=== PATIENT | male | born 1940 | race Caucasian/White ===

== ENCOUNTER 2017-02-25 08:29 | Inpatient (IN) | payer OTHER, MEDICARE ==
[~2017-02-25] VITALS: Ht 172.7 cm; Wt 83.7 kg
[2017-02-25] VITALS (19 sets, daily range): BP systolic 74–135; BP diastolic 52–71; PULSE 112–141; RESP 12–29; TEMP 99.1–102.2; O2SAT 55–100
[~2017-02-25 08:29] MED LIST: BENA5TAB PO; BIOT50005 PO; CENTTAB8 PO; CIPR250T2 PO; METF1000 PO; PRAV20TA2 PO; PROS5TAB PO; TERA10CA3 PO; VITA100032 PO; VITA10004 PO
[2017-02-25] MEDS ORDERED: ETOMIDATE 20 MG/10 ML VIAL ONE (08:37)
[2017-02-25] MEDS ORDERED: ROCURONIUM INJ 50 MG/5 ML VIAL ONE (08:37)
[2017-02-25] MEDS ORDERED: SODIUM CHLOR 0.9% 1000 ML INJ 400 ML IV ONE (08:46)
[2017-02-25] MEDS ORDERED: AZITHROMYCIN INJ 500 MG in SODIUM CHLOR 0.9% 250 ML INJ 250 ML IV STA (08:46)
[2017-02-25] MEDS ORDERED: CEFEPIME INJ 2,000 MG in SODIUM CHLORIDE 0.9% INJ 100 ML IV STA (08:46)
[2017-02-25] MEDS ORDERED: SODIUM CHLOR 0.9% 1000 ML INJ 1,000 ML IV ONE ×5 (08:46→10:45)
[2017-02-25] MEDS ORDERED: MIDAZOLAM 100 MG/ML INJ 100 ML ONE (08:54)
--- NOTE | 2017-02-25 08:58 | PD ---
HPI Chief Complaint: Altered Mental Status Time Seen by Provider: 08:46 Travel History International Travel<30 days: No Contact w/Intl Traveler<30days: No Traveled to known affect area: No History of Present Illness HPI The patient is a 76-year-old male who presents to the emergency department via EMS for altered mental status. EMS states the patient apparently fell yesterday, striking the left aspect of his head, was seen by his primary physician. The patient then had decreasing mental status throughout the night, normal GCS of 15. EMS, GCS of 14 upon arrival. EMS states the patient was hypoxic when they arrived with an O2 saturation on room air of 72% and a blood sugar 318. Upon arrival the patient does not answer questions including his name, current location, year, or month. The patient has difficulty following simple commands and appears confused. The patient was also noted to be tachycardic with a heart rate in the 120s and respiratory rate in the 40s. 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 No further information is obtainable from the patient. PFSH Past Medical History Cancer: Yes (AML) Cardiovascular Problems: Yes High Cholesterol: Yes Chemotherapy: Yes (WEEKLY) Diabetes: Yes (Type 2) Diminished Hearing: No Endocrine: Yes Genitourinary: Yes (BPH) Hypertension: Yes Immune Disorder: No Musculoskeletal: No Neurologic: No Psychiatric: No Reproductive: No Respiratory: Yes Immunizations Current: No Thyroid Disease: No Tetanus Vaccination: Unknown ?: Not Past Surgical History Abdominal Surgery: No AICD: No Cardiac Surgery: No Ear Surgery: No Endocrine Surgery: No Eye Surgery: Yes (Ariela 2007) Genitourinary Surgery: No Gynecologic Surgery: Yes (turp) Joint Replacement: No Neurologic Surgery: No Oral Surgery: No Pacemaker: No Thoracic Surgery: No Other Surgery: Yes (TURP) Family History Family Hypercholesterolemia: Yes Social History Tobacco Use: No (unable to answer) Substance Use: No Allergies-Medications (Allergen,Severity, Reaction): Coded Allergies: No Known Allergies (Unverified , 11/03/16) Reported Meds & Prescriptions Reported Meds & Active Scripts Active Ciprofloxacin (Ciprofloxacin HCl) 250 Mg Tab 250 Mg PO BID Reported Vitamin D (Cholecalciferol) 1,000 Unit Cap 1,000 Units PO DAILY Biotin 5,000 Mcg Cap 5,000 Mcg PO Vitamin B12 Tr (Cyanocobalamin) 1,000 Mcg Tab 1,000 Mcg PO DAILY Centrum Adults (Multiple Vitamins W/ Minerals) 1 Tab 1 Tab PO DAILY Terazosin (Terazosin HCl) 10 Mg Cap 10 Mg PO HS Pravastatin 20 Mg Tab 20 Mg PO HS Proscar (Finasteride) 5 Mg Tab 5 Mg PO HS Do not crush. Metformin (Metformin HCl) 1,000 Mg Tab 1,000 Mg PO BIDPC With meals Benazepril (Benazepril HCl) 5 Mg Tab 5 Mg PO DAILY Review of Systems ROS Limitations: Clinical Condition, Altered Mental Status Except as stated in HPI: all other systems reviewed are Neg Neurologic: Positive: Change in Mentation (according to EMS) Physical Exam Narrative GENERAL: Awake, mostly nonverbal, confused 76-year-old male in respiratory distress with a respiratory rate in the 40s. SKIN: Focused skin assessment warm/dry. HEAD: Hematoma with superficial abrasion and ecchymosis over the left frontal temporal area. EYES: Pupils equal and round. Pupils are 2 mm bilateral. ENT: No nasal bleeding or discharge. Dry mucous membranes. NECK: Trachea midline. No JVD. CARDIOVASCULAR: Regular, tachycardic with a heart rate of 120. RESPIRATORY: Tachypnea with a respiratory rate of 46. Diminished breath sounds in the bases bilateral. GASTROINTESTINAL: Abdomen soft, abdominal breathing noted. Rectal exam: No gross blood. Guaiac positive. MUSCULOSKELETAL: Abrasion noted over the anterior aspect of the right knee. Back: Abrasion noted over the mid left thoracic region. NEUROLOGICAL: Awake, confused, somewhat lethargic. Does not answer to his name and does not answer questions regarding person, place, month, or year. Does move all 4 extremities spontaneously. PSYCHIATRIC: Appears confused. Data Data Last Documented VS Vital Signs Date Time Temp Pulse Resp B/P Pulse Ox O2 Delivery O2 Flow Rate FiO2 02/25/17 09:46 141 15 135/71 100 Ventilator 02/25/17 09:46 100 02/25/17 08:39 15 02/25/17 08:32 102.2 Orders Etomidate Inj (Amidate Inj) (02/25/17 08:37) Rocuronium Inj (Zemuron Inj) (02/25/17 08:37) Electrocardiogram (02/25/17 08:46) Complete Blood Count With Diff (02/25/17 08:46) Comprehensive Metabolic Panel (02/25/17 08:46) Prothrombin Time / Inr (Pt) (02/25/17 08:46) Act Partial Throm Time (Ptt) (02/25/17 08:46) Lactic Acid Sepsis Protocol (02/25/17 08:46) Magnesium (Mg) (02/25/17 08:46) Lipase (02/25/17 08:46) Ckmb (Isoenzyme) Profile (02/25/17 08:46) Troponin I (02/25/17 08:46) Urinalysis - C+S If Indicated (02/25/17 08:46) Influenzae A/B Antigen (02/25/17 08:46) Blood Culture (02/25/17 08:46) Chest, Single Ap (02/25/17 08:46) Blood Glucose (02/25/17 08:46) Ecg Monitoring (02/25/17 08:46) Iv Access Insert/Monitor (02/25/17 08:46) Oximetry (02/25/17 08:46) Oxygen Administration (02/25/17 08:46) Urinary Catheter Insert/Apply (02/25/17 08:46) Acetaminophen Supp (Tylenol Supp) (02/25/17 09:00) Ct Brain W/O Iv Contrast(Rout) (02/25/17 08:46) Cefepime Inj (Maxipime Inj) (02/25/17 08:46) Azithromycin Inj (Zithromax Inj) (02/25/17 08:46) Sodium Chlor 0.9% 1000 Ml Inj (Ns 1000 M (02/25/17 08:46) Sodium Chlor 0.9% 1000 Ml Inj (Ns 1000 M (02/25/17 08:46) Sodium Chlor 0.9% 1000 Ml Inj (Ns 1000 M (02/25/17 08:46) Neurological Rass Scale Q30MX2,Q2HX4,Q4H (02/25/17 08:46) ^ Infusion (02/25/17 08:46) Fentanyl Drip (Fentanyl Drip) (02/25/17 09:00) Midazolam Inj (Versed Inj) (02/25/17 09:00) Midazolam Inj (Versed Inj) (02/25/17 09:00) Neurological Rass Scale Q30MX2,Q2HX4,Q4H (02/25/17 08:46) Ammonia (02/25/17 08:46) Midazolam Inj (Versed Inj) (02/25/17 09:00) Ng Gastric Tube Insert/Monitor (02/25/17 08:46) Restraints Non-Violent CURTIS.Q3H (02/25/17 08:46) Midazolam Inj (Versed Inj) (02/25/17 08:54) I-Stat Creatinine (02/25/17 08:58) Fentanyl Drip (Fentanyl Drip) (02/25/17 09:07) Red Blood Cells (Rbc) (02/25/17 09:18) Blood Product Administration .UPON TRANSFUSION (02/25/17 09:18) Sodium Chlor 0.9% 250 Ml Inj (Ns 250 Ml (02/25/17 09:30) Diphenhydramine Inj (Benadryl Inj) (02/25/17 09:30) Acetaminophen (Tylenol) (02/25/17 09:30) I-Stat Profile (02/25/17 09:00) Type And Screen (02/25/17 09:10) Urine Culture (02/25/17 09:10) CKMB (02/25/17 09:00) CKMB% (02/25/17 09:00) Platelet Pheresis (02/25/17 09:53) Red Blood Cells (Rbc) (02/25/17 09:53) Consult Medical Oncology (02/25/17 ) Platelet Pheresis (02/25/17 10:07) Blood Product Administration .UPON TRANSFUSION (02/25/17 10:07) Consult Neurosurgery (02/25/17 ) Complete Blood Count With Diff (02/25/17 14:00) Labs Laboratory Tests Test 02/25/17 02/25/17 09:00 09:10 White Blood Count 26.1 TH/MM3 Red Blood Count 1.99 MIL/MM3 Hemoglobin 6.2 GM/DL Bedside Hemoglobin 6.8 G/DL Hematocrit 18.1 % Bedside Hematocrit 20.0 % Mean Corpuscular Volume 91.2 FL Mean Corpuscular Hemoglobin 31.0 PG Mean Corpuscular Hemoglobin 34.0 % Concent Red Cell Distribution Width 16.2 % Platelet Count 28 TH/MM3 Mean Platelet Volume 8.8 FL Neutrophils (%) (Auto) % Lymphocytes (%) (Auto) % Monocytes (%) (Auto) % Eosinophils (%) (Auto) % Basophils (%) (Auto) % Neutrophils # (Auto) TH/MM3 Lymphocytes # (Auto) TH/MM3 Monocytes # (Auto) TH/MM3 Eosinophils # (Auto) TH/MM3 Basophils # (Auto) TH/MM3 CBC Comment AUTO DIFF Prothrombin Time 15.8 SEC Prothromb Time International 1.4 RATIO Ratio Activated Partial 30.0 SEC Thromboplast Time Bedside Sodium 130 MMOL/L Sodium Level 129 MEQ/L Bedside Potassium 5.0 MMOL/L Potassium Level 4.7 MEQ/L Bedside Chloride 98 MMOL/L Chloride Level 98 MEQ/L Carbon Dioxide Level 15.4 MEQ/L Anion Gap 16 MEQ/L Bedside Blood Urea Nitrogen 72 MG/DL Blood Urea Nitrogen 64 MG/DL Creatinine 4.31 MG/DL Bedside Creatinine 3.9 MG/DL Estimat Glomerular Filtration 13 ML/MIN Rate Bedside Glucose 328 MG/DL Random Glucose 322 MG/DL Calcium Level 8.4 MG/DL Magnesium Level 1.8 MG/DL Total Bilirubin 1.0 MG/DL Aspartate Amino Transf 124 U/L (AST/SGOT) Alanine Aminotransferase 102 U/L (ALT/SGPT) Alkaline Phosphatase 65 U/L Total Creatine Kinase 193 U/L Creatine Kinase MB 3.6 NG/ML Troponin I 1.52 NG/ML Total Protein 6.7 GM/DL Albumin 3.3 GM/DL Lipase 50 U/L Urine Color DARK-YELLOW Urine Turbidity CLOUDY Urine pH 5.0 Urine Specific [place] 1.017 Urine Protein 100 mg/dL Urine Glucose (UA) 70 mg/dL Urine Ketones NEG mg/dL Urine Occult Blood LARGE Urine Nitrite NEG Urine Bilirubin NEG Urine Urobilinogen LESS THAN 2.0 MG/DL Urine Leukocyte Esterase NEG Urine RBC 34 /hpf Urine WBC 14 /hpf Urine Squamous Epithelial 3 /hpf Cells Urine Amorphous Sediment FEW Urine Bacteria FEW /hpf Urine Granular Casts 7 /lpf Microscopic Urinalysis Comment CATH-CULTURE IND Lactic Acid Level 5.3 mmol/L Ammonia 48 MCMOL/L Blood Type O POSITIVE Antibody Screen NEGATIVE Crossmatch Leukocyte-Reduced Red Blood Cells Blood Bank Comment MDM Medical Decision Making Medical Screen Exam Complete: Yes Emergency Medical Condition: Yes Medical Record Reviewed: Yes Interpretation(s) EKG reveals sinus tachycardia with a heart rate of 137 with occasional supraventricular premature complex. Nonspecific T wave changes. Differential Diagnosis Differential diagnosis includes intracranial hemorrhage, subdural hemorrhage, sepsis, pulmonary embolism, pneumonia, dehydration, DKA, sepsis, septic shock, pleural effusion, UTI. Narrative Course IV was established, labs are drawn and sent, and the patient was placed on cardiac telemetry monitoring and continuous pulse oximetry monitoring. The patient had tachypnea with a respiratory rate in the 40s, off of oxygen his O2 saturation felt a 52%, nonrebreather were, but into the 90s. The patient was confused and trying to get out of bed. Therefore, the patient was intubated using rapid sequence intubation as he was hypoxic, confused, and we need imaging studies such as CT the brain and CT pulmonary angiogram. Blood culture and lactic acid were sent to lab. The patient was administered cefepime and Zithromax. The patient was placed on fentanyl drip and Versed drip for sedation. The patient's i-STAT reveals a creatinine of 3.9, therefore, CT pulmonary angiogram was canceled. The patient's sodium was 1:30, potassium 5.0 , chloride 98, BUN 72, glucose 328, hemoglobin 6.8, hematocrit 20%. Therefore, time and screen was ordered and 2 units of packed red blood cells were ordered. The patient had an NG tube placed which reveals coffee ground emesis. Rectal exam was performed which was guaiac positive, no gross blood. Schafer catheter was placed, the patient had blood from around the Schafer catheter. The patient may have DIC and/or severe thrombocytopenia with his history of leukemia. CT the brain reveals a left subdural hemorrhage 9 mm in thickness with a mild gswt-mb-jwmcw shift of 2.6 mm. The patient's platelets were low at 28, therefore, one single unit donor platelets was ordered. I discussed the patient with Dr. Sanders who requests admission to the intensive surgical care physician with consultation to Dr. Sanders. A call was placed to the intensive surgical care physician. I reviewed the EMR, the patient's oncologist is Dr. Louis, therefore, call was placed to Dr. Louis. Critical Care Narrative Aggregate critical care time was 45 minutes. Time to perform other separately billable procedures was not included in the critical care time. My time did not include minutes spent treating any other patients simultaneously or on activities that did not directly contribute to the patient's treatment. The services I provided to this patient were to treat and/or prevent clinically significant deterioration that could result in: Anoxia, hypoxia, aspiration, arrhythmia, septic shock, . I provided critical care services requiring my management, as noted below: Chart data review, documentation time, medication orders and management, vital sign assessments/reviewing monitor data, ordering and reviewing lab tests, ordering and interpreting/reviewing x-rays and diagnostic studies, care of the patient and discussion of the patient with the admitting physicians. Procedures Procedure Narrative INTUBATION: The patient was put in optimal position for the procedure. Rapid sequence intubation was initiated by me using 20 milligrams of etomidate IV and 75 milligrams of rocuronium IV. The patient was intubated with a 8-0 cuffed endotracheal tube. Tube placement was confirmed by visualization of the tube and balloon passing through the cords, capnometry and subsequent chest x-ray. Breath sounds were equal and well aerated bilaterally postintubation. No breath sounds over stomach. Patient tolerated procedure well. HemaPrompt Point of Care Internal Pos. & Neg. Controls: Passed Fecal Specimen Occult Blood: Positive Physician Communication Physician Communication A call was placed to the on-call intensive surgical care unit physician for admission. I discussed the patient with the neurosurgeon, Dr. Sanders. A call was placed to the patient's oncologist, Dr. Louis. Diagnosis Primary Impression: Subdural hematoma Additional Impressions: Thrombocytopenia Acute blood loss anemia Anemia Qualified Code: D64.9 - Anemia, unspecified type Acute renal failure Qualified Code: N17.9 - Acute renal failure, unspecified acute renal failure type Admitting Information Admitting Physician Requests: Admit Condition: Critical Jorge De La Rosa MD Feb 25, 2017 08:58
[2017-02-25] MEDS ORDERED: MIDAZOLAM HCL 5 MG/5 ML VIAL IV PUSH ONE (09:00)
[2017-02-25] MEDS ORDERED: fentaNYL DRIP 250 ML IV SCH ×2 (09:00→10:30)
[2017-02-25] MEDS ORDERED: ACETAMINOPHEN 650 MG SUPP RECTAL ONE (09:00)
[2017-02-25] MEDS ORDERED: MIDAZOLAM HCL 2 MG/2 ML VIAL IV ONE (09:00)
[2017-02-25] MEDS ORDERED: fentaNYL DRIP 250 ML ONE (09:07)
[2017-02-25 09:25] LABS: MEAN CELL VOLUME 91.2 FL (80.0-100.0); PLATELET COUNT 28 TH/MM3 (150-450); RED BLOOD COUNT 1.99 MIL/MM3 (4.50-5.90); RED CELL DISTRIBUTION WIDTH 16.2 % (11.6-17.2); WHITE BLOOD COUNT 26.1 TH/MM3 (4.0-11.0)
[2017-02-25] MEDS ORDERED: ACETAMINOPHEN 325 MG TAB PO PRN ×2 (09:30→10:30)
[2017-02-25] MEDS ORDERED: SODIUM CHLOR 0.9% 250 ML INJ 250 ML IV ONE (09:30)
[2017-02-25] MEDS ORDERED: diphenhydrAMINE HCL 50 MG/ML VIAL IV PRN (09:30)
[2017-02-25 09:32] LABS: HEMO FLAGS AUTO DIFF
[2017-02-25 09:33] LABS: HEMATOCRIT 18.1 % (39.0-51.0)
[2017-02-25 09:35] LABS: INTERNATIONAL NORMALIZED RATIO 1.4 RATIO; PROTHROMBIN TIME - PATIENT 15.8 SEC (9.8-11.6)
[2017-02-25 09:38] LABS: BACTERIA, URINE FEW /hpf; BLOOD, URINE LARGE (NEG); GLUCOSE,URINE 70 mg/dL (NEG); GRANULAR CAST, URINE 7 /lpf; KETONE, URINE NEG (NEG); NITRITE,URINE NEG (NEG); SQUAMOUS EPITHELIAL CELL URINE 3 /hpf (0-5); URINE COLOR DARK-YELLOW (YELLW/STRAW)
[2017-02-25 09:40] LABS: COMMENT (UR) CATH-CULTURE IND; CULTURE IF INDICATED CATH CULTURE IND
[2017-02-25 09:43] LABS: ANION GAP 16 MEQ/L (5-15); AST (GOT) 124 U/L (15-37); BICARBONATE 15.4 MEQ/L (21.0-32.0); BLOOD UREA NITROGEN 64 MG/DL (7-18); CHLORIDE 98 MEQ/L (98-107); GLOMERULAR FILTRATION RATE 13 ML/MIN (>89); MAGNESIUM 1.8 MG/DL (1.5-2.5); POTASSIUM 4.7 MEQ/L (3.5-5.1); SODIUM (NA) 129 MEQ/L (136-145)
[2017-02-25 09:48] LABS: ALKALINE PHOSPHATASE 65 U/L (45-117); ALT (GPT) 102 U/L (12-78); CREATINE KINASE 193 U/L (39-308)
--- NOTE | 2017-02-25 09:50 | RADRPT ---
EXAM DATE/TIME: 02/25/2017 08:56 [facility] COMPARISON: CHEST SINGLE AP, November 03, 2016, 15:26. INDICATIONS : Post Procedure. Intubation. MEDICAL HISTORY : Leukemia. Hypertension. Hypercholesterolemia. AML cancer. Chemotherapy. Diabetic SURGICAL HISTORY : TURP. ENCOUNTER: Initial ACUITY: 1 day PAIN SCORE: Non-responsive. LOCATION: Bilateral chest FINDINGS: Endotracheal tube tip in satisfactory position 3.6 cm above the hannah. Right jugular line tip overli es expected location of the right atrium. Cardiomegaly, bilateral airspace disease greatest in the le ft lower lobe, and right basilar atelectasis. No obvious pneumothorax. CONCLUSION: Endotracheal tube as above. Mark Mendoza MD on February 25, 2017 at 9:48 Board Certified Radiologist. This report was verified electronically.
--- NOTE | 2017-02-25 09:57 | RADRPT ---
EXAM DATE/TIME: 02/25/2017 09:29 [facility] COMPARISON: CT BRAIN W/O CONTRAST, June 06, 2016, 10:22. INDICATIONS : Patient fell and hit left anterior head yesterday now has altered mental status. RADIATION DOSE: 44.62 CTDIvol (mGy) MEDICAL HISTORY : Hypertension. Leukemia. Diabetes. SURGICAL HISTORY : None. ENCOUNTER: Initial ACUITY: 1 day PAIN SCALE: Non-responsive LOCATION: cranial TECHNIQUE: Multiple contiguous axial images were obtained of the head. Using automated exposure control and adj ustment of the mA and/or kV according to patient size, radiation dose was kept as low as reasonably a chievable to obtain optimal diagnostic quality images. FINDINGS: There is mild diffuse atrophy. Calcified left frontal meningioma again noted. There is a subdural hem atoma seen along the left frontal convexity with a maximal transverse thickness of 9 mm. The no intra parenchymal hemorrhage or subarachnoid hemorrhage identified. There is mild left to right shift of 2. 6 mm. No definite fractures. CONCLUSION: Left frontal subdural hematoma with mild midline shift. Atrophy. Mark Mendoza MD on February 25, 2017 at 9:54 Board Certified Radiologist. This report was verified electronically.
[2017-02-25] MEDS: MIDAZOLAM 100 MG/ML INJ 100 ML IV SCH (10:01)
[2017-02-25 10:07] LABS: CKMB 3.6 NG/ML (0.5-3.6)
--- NOTE | 2017-02-25 10:25 | HHI.HP ---
[facility] Service Critical Care Medicine Primary Care Physician Luc Jones MD Admission Diagnosis Diagnosis: (1) Acute subdural hematoma Diagnosis: Principal (2) Acute encephalopathy Diagnosis: Principal (3) Acute hypoxemic respiratory failure Diagnosis: Principal (4) Septic shock Diagnosis: Principal (5) Bilateral pneumonia Diagnosis: Principal (6) Severe sepsis Diagnosis: Principal (7) Lactic acidosis Diagnosis: Principal (8) Thrombocytopenia Diagnosis: Principal (9) Elevated troponin Diagnosis: Principal (10) Anemia Diagnosis: Principal (11) Acute renal failure Diagnosis: Principal (12) Myelodysplasia (myelodysplastic syndrome) Diagnosis: Secondary (13) Shock Diagnosis: Principal (14) UGIB (upper gastrointestinal bleed) Diagnosis: Principal (15) Hyperlipidemia Diagnosis: Secondary (16) Type 2 diabetes mellitus Diagnosis: Secondary (17) Hypertension Diagnosis: Secondary Chief Complaint: s/p fall with SDH hypoxia Travel History International Travel<30 Days: No Contact w/Intl Traveler <30 Da: No Traveled to Known Affected Are: No Sepsis Criteria SIRS Criteria (2 or more): Heart rate over 90, RR > 20 or PaCO2 < 32, WBC > 54555, < 4000 or > 10% bands Sepsis Criteria (SIRS+source): Infect source susp/known Severe Sepsis (+one): Organ Dysfunction, Lactate >2, Acute Oliguria/Renal Failure Septic Shock Criteria: Unresponsive to 30ml/kg fluid bolus, Lactic acid >=4 Criteria Outcome: Meets septic shock criteria History of Present Illness The patient is a 76-year-old male with history of Myelodysplastic syndrome, type 2 DM, hypertension who presented to the emergency department via EMS for altered mental status. He had a fall yesterday, striking the left aspect of his head, was seen by his primary physician yesterday. Decreasing mental status throughout the night, and EMS was called today am. EMS found patient hypoxic when they arrived, O2 saturation on room air of 72%. In the ER was disoriented and appears confused. He was tachycardic with a heart rate in the 120s and respiratory rate in the 40s. His initial O2 saturation in ER was 52%, with nonrebreather came up to 90s. Rapid sequence intubation performed by Dr. De La Rosa as patient remained hypoxic, confused. After Blood culture was drawn patient was given cefepime and Zithromax. Pertinent labs Na 130, potassium 5.0, BUN/creat 64/4.3, glucose 328, hemoglobin 6.8, and platelet count of 28,000. NG tube placed with coffee ground emesis. A Stat CT the brain reveals a left subdural hemorrhage 9 mm with mild [id number] shift of 2.6 mm. The patient's platelets were low at 28, I have ordered 3 U irradiated platelets and 2U PRBC, 1U FFP. N/S Dr. Sanders was consulted, as well as oncology , GI and nephrology. Patient had a fever of 102.2 and CXR showed bilateral basilar infiltrates. His WBC count was 26,000 (has MDS)and fever of 102.2 I evaluated patient in ED. intubated sedated with Versed, remains unresponsive. Patient became hypotensive despite NS bolus. I placed a left subclavian central line and ordered additional 2L NS bolus and 2U PRBC. Levophed started to keep MAP>70. family is not at bedside but prognosis is guarded. Patient is admitted to [facility] with shock (multifactorial, predominantly septic) and acute L SDH with encephalopathy and resp failure Review of Systems ROS Limitations: Intubated, Altered Mental Status Past Family Social History Allergies: Coded Allergies: No Known Allergies (Unverified , 11/03/16) Past Medical History Myelodysplastic syndrome with refractory anemia Thrombocytopenia Type 2 diabetes Hypertension Iron overload due to frequent blood transfusion Past Surgical History TURP Reported Medications Ciprofloxacin (Ciprofloxacin HCl) 250 Mg Tab 250 Mg PO BID Vitamin D (Cholecalciferol) 1,000 Unit Cap 1,000 Units PO DAILY Biotin 5,000 Mcg Cap 5,000 Mcg PO Vitamin B12 Tr (Cyanocobalamin) 1,000 Mcg Tab 1,000 Mcg PO DAILY Centrum Adults (Multiple Vitamins W/ Minerals) 1 Tab 1 Tab PO DAILY Terazosin (Terazosin HCl) 10 Mg Cap 10 Mg PO HS Pravastatin 20 Mg Tab 20 Mg PO HS Proscar (Finasteride) 5 Mg Tab 5 Mg PO HS Metformin (Metformin HCl) 1,000 Mg Tab 1,000 Mg PO BIDPC Benazepril (Benazepril HCl) 5 Mg Tab 5 Mg PO DAILY Active Ordered Medications Reviewed Family History Reviewed Social History No alcohol or tobacco use Physical Exam Vital Signs Vital Signs Date Time Temp Pulse Resp B/P Pulse Ox O2 Delivery O2 Flow Rate FiO2 02/25/17 09:46 141 15 135/71 100 Ventilator 02/25/17 09:46 100 Ventilator 100 4/14/17 09:30 100 100 02/25/17 08:46 133 14 98 Ventilator 02/25/17 08:39 26 100 Non-Rebreather 15 02/25/17 08:38 100 Non-Rebreather 15 02/25/17 08:32 102.2 128 24 128/67 55 Physical Exam GENERAL: Intubated, heavily sedated on Versed. Critically ill SKIN: Skin assessment warm/dry. Pale HEAD: Hematoma with superficial abrasion and ecchymosis over the left frontal temporal area. EYES: Pupils equal and round. Pupils are 2 mm bilateral, nonreactive ENT: No nasal bleeding or discharge. Dry mucous membranes. NECK: Trachea midline. No JVD. CARDIOVASCULAR: Regular, tachycardic with a heart rate of 120. RESPIRATORY: Breathing above vent. Diminished breath sounds in the bases bilateral., with crackles GASTROINTESTINAL: Abdomen soft, nontender. (Rectal exam by ED: No gross blood. Guaiac positive.) NEUROLOGICAL: Intubated heavily sedated with versed for ventilator synchrony. Pupils 2 mm unreactive. No withdrawal to pain (might be still under induction drug) Laboratory Laboratory Tests Test 02/25/17 02/25/17 09:00 09:10 White Blood Count 26.1 Red Blood Count 1.99 Hemoglobin 6.2 Bedside Hemoglobin 6.8 Hematocrit 18.1 Bedside Hematocrit 20.0 Mean Corpuscular Volume 91.2 Mean Corpuscular Hemoglobin 31.0 Mean Corpuscular Hemoglobin 34.0 Concent Red Cell Distribution Width 16.2 Platelet Count 28 Mean Platelet Volume 8.8 Neutrophils (%) (Auto) Lymphocytes (%) (Auto) Monocytes (%) (Auto) Eosinophils (%) (Auto) Basophils (%) (Auto) Neutrophils # (Auto) Lymphocytes # (Auto) Monocytes # (Auto) Eosinophils # (Auto) Basophils # (Auto) CBC Comment AUTO DIFF Prothrombin Time 15.8 Prothromb Time International 1.4 Ratio Activated Partial 30.0 Thromboplast Time Bedside Sodium 130 Sodium Level 129 Bedside Potassium 5.0 Potassium Level 4.7 Bedside Chloride 98 Chloride Level 98 Carbon Dioxide Level 15.4 Anion Gap 16 Bedside Blood Urea Nitrogen 72 Blood Urea Nitrogen 64 Creatinine 4.31 Bedside Creatinine 3.9 Estimat Glomerular Filtration 13 Rate Bedside Glucose 328 Random Glucose 322 Calcium Level 8.4 Magnesium Level 1.8 Total Bilirubin 1.0 Aspartate Amino Transf 124 (AST/SGOT) Alanine Aminotransferase 102 (ALT/SGPT) Alkaline Phosphatase 65 Total Creatine Kinase 193 Creatine Kinase MB 3.6 Troponin I 1.52 Total Protein 6.7 Albumin 3.3 Lipase 50 Urine Color DARK-YELLOW Urine Turbidity CLOUDY Urine pH 5.0 Urine Specific Cofield 1.017 Urine Protein 100 Urine Glucose (UA) 70 Urine Ketones NEG Urine Occult Blood LARGE Urine Nitrite NEG Urine Bilirubin NEG Urine Urobilinogen LESS THAN 2.0 Urine Leukocyte Esterase NEG Urine RBC 34 Urine WBC 14 Urine Squamous Epithelial 3 Cells Urine Amorphous Sediment FEW Urine Bacteria FEW Urine Granular Casts 7 Microscopic Urinalysis Comment CATH-CULTURE IND Lactic Acid Level 5.3 Ammonia 48 Blood Type O POSITIVE Antibody Screen NEGATIVE Crossmatch Leukocyte-Reduced Red Blood Cells Blood Bank Comment Date/Time Procedure Status Source Growth 02/25/17 09:10 Urine Culture Received Urine Catheterized Urine Pending 02/25/17 09:10 Aerobic Blood Culture Received Blood Peripheral Pending 02/25/17 09:10 Anaerobic Blood Culture Received Blood Peripheral Pending Result Diagram: 02/25/1789902/25/[address] head L frontal subdural hematoma. CXR bibasilar infiltrates Septic Shock Reassessment Heart: Other (tachycardic) Lungs: Course, Diminished Skin: Warm, Dry Peripheral Pulses: Weak Right Radial Weak Left Radial Capillary Refill: Sluggish Assessment and Plan Assessment and Plan NEURO: Acute left frontal subdural hemorrhage Acute encephalopathy -Altered mentation secondary to subdural hemorrhage and metabolic encephalopathy from sepsis -Neurosurgery Dr. Sanders consulted. Low GCS, ICP monitor indicated. -3 units of platelets being transfused to keep platelet count above 60,000 -Correct hyponatremia, target sodium 145-150. avoid hypoxia hypercarbia -Surgical decompression based on clinical course -Target CPP 65-70 after ICP monitor placement. 23% PRN for ICP >20. NM paralysis for ICP control if needed -3% Saline at 30 ml per hour RESP: Acute hypoxemic respiratory failure Bilateral pneumonia -Emergently intubated in ER. ACV 20/550/8/100% -CT chest dense bibasilar consolidation -Sputum culture -Nebs every 6 hours and when necessary -Broad-spectrum antibiotics as below CV: Shock multifactorial. (Predominantly septic and hypovolemic/hemorrhagic) Elevated troponin Lactic acidosis -Normal saline IV fluids 3L bolus adn 150 ml per hour of bicarb infusion -2d echo, repeat troponin trending down -Levophed and Cristiano-Synephrine to keep map above 65 -Trend lactic acid GI: Upper GI bleed -IV Protonix 80 mg 1 and 8 mg per hour -GI consult -Keep nothing by mouth, correct coagulopathy : Acute on CKD -Monitor renal function closely, Schafer catheter. -Nephrology consulted -Continue aggressive fluid resuscitation ID: Septic shock Bilateral basilar pneumonia -IV vancomycin x1. Placed on Zosyn and azithromycin -Follow up on blood urine and sputum culture -ID consulted if not improving in 24 hours HEME: Anemia Thrombocytopenia History of MDS -Transfuse blood products to keep hemoglobin more than 8, platelet, than 60,000 , INR less than 1.3 -Patient currently receiving 3 pack units of irradiated platelets, 2 units of PRBC, and one unit of FFP -Hematology oncology Dr. Louis consulted ENDO: Hyponatremia Type 2 diabetes -Electrolyte replacement as needed, sliding scale insulin PROPH: -Bilateral lower extremity SCDs. Chemical prophylaxis is contraindicated. Protonix infusion for GI prophylaxis LINES: -Left subclavian central line placed by myself 02/25/17. Arterial line, R chest port in place CC time 95 min excluding procedures Code Status Full Discussed Condition With Discussed with neurosurgery, medullary oncology, gastroenterology and ER Problem Qualifiers (1) Bilateral pneumonia: Qualified Code: J18.9 - Pneumonia of both lower lobes due to infectious organism (2) Anemia: Qualified Code: D64.9 - Anemia, unspecified type (3) Acute renal failure: Qualified Code: N17.9 - Acute renal failure, unspecified acute renal failure type (4) Type 2 diabetes mellitus: Trung Boyer MD Feb 25, 2017 10:25
[2017-02-25] MEDS ORDERED: CHLORHEXIDINE GLUCONATE 2 % 1 PACK (2 CLOTHS) TOP PRN (10:30)
[2017-02-25] MEDS ORDERED: MISCELLANEOUS NURSING INFORMATION XX SCH (10:30)
[2017-02-25] MEDS ORDERED: SODIUM CHLORIDE 0.9% FLUSH 10 ML FLUSH IV FLUSH PRN (10:30)
[2017-02-25] MEDS ORDERED: PROPOFOL 1000 MG/100 ML INJ 100 ML IV SCH (10:30)
[2017-02-25] MEDS ORDERED: VANCOMYCIN INJ 1,000 MG in SODIUM CHLOR 0.9% 250 ML INJ 250 ML IV ONE (10:30)
[2017-02-25] MEDS ORDERED: RESP: ALBUTEROL 2.5 MG/3 ML NEB (PRN) INH (10:30)
[2017-02-25 10:33] LABS: BANDS 18 % (0-6); METAMYELOCYTES 5 % (0-1); MYELOCYTES 6 % (0-0); NEUTROPHIL # MANUAL DIFF 17.2 TH/MM3 (1.8-7.7); POLYS (SEG NEUTROPHILS) 36 % (16-70); PROMYELOCYTES 1 % (0-0); WBC DIFF SAMPLE 100
[2017-02-25 10:35] LABS: PLATELET ESTIMATE SMEAR RARE (NORMAL); SCAN/DIFF FINAL DIFF MANUAL
[2017-02-25 10:37] LABS: OVALOCYTES 1+ (NORMAL)
[2017-02-25 10:39] LABS: PLATELET MORPHOLOGY NORMAL (NORMAL)
[2017-02-25] MEDS ORDERED: NOREPINEPHRINE 4 MG/4 ML AMP ONE (10:54)
[2017-02-25] MEDS ORDERED: TERBUTALINE INJ 1 MG/ML AMP SQ PRN ×2 (11:00→13:15)
[2017-02-25] MEDS ORDERED: NOREPINEPHRINE-DEXTROSE DRIP 250 ML IV SCH (11:00)
[2017-02-25] MEDS ORDERED: SODIUM CHLOR 0.9% 1000 ML INJ 1,000 ML IV SCH (11:00)
--- NOTE | 2017-02-25 11:02 | PD.PROCEDR ---
Central Line Procedure REASON FOR PROCEDURE Central venous access PROCEDURE PERFORMED Central line placement: L subclavian central line CONSENT Emergency procedure due to shock ANESTHESIA Local injection of 1% Lidocaine DESCRIPTION OF THE PROCEDURE The patient was placed in supine, mild Trendelenburg position. The area was exposed and cleansed with ChloraPrep, times two. Large sterile drape was used to cover the patient, with the site exposed, under sterile conditions including cap, face mask, sterile gown, and sterile gloves. On single attempt, the introducer needle was inserted with negative pressure in syringe and venous flash was obtained. The guide wire was then advanced without any restriction and the needle was removed. The dilator was used without any complications. Using Seldinger technique the 20 cm 3 lumen ABX coated catheter was advanced over the guide wire to a depth of 17 centimeters. The guide wire was removed. All ports were aspirated with dark venous blood return and flushed easily with sterile saline. All ports were capped. Antibiotic disc was placed around central line at puncture site. The central line was secured to the skin with two interrupted 2.0 silk sutures. The area was bandaged with sterile see- through central line bandage. COMPLICATIONS: No apparent complications ESTIMATED BLOOD LOSS: Less than 1 cc. Trung Boyer MD Feb 25, 2017 11:02
[2017-02-25 11:16] LABS: BLOOD GAS CARBOXYHEMOGLOBIN 1.1 % (0-4); BLOOD GAS HCO3 16 mmol/L (22-26); BLOOD GAS METHEMOGLOBIN 1.4 % (0-2); BLOOD GAS O2 HGB SATURATION 94 % (90-100); BLOOD GAS OXYGEN CONTENT 7.3 Vol % (12.0-20.0); BLOOD GAS PCO2 49 mmHg (38-42); BLOOD GAS PO2 116 mmHG (61-120); BLOOD GAS TOTAL HGB 5.3 G/DL (12.0-16.0); CRITICAL VALUE YES; DRAW SITE LT RADIAL; FIO2 100 %; OXYGEN DEVICE VENTILATOR; TEMP CORR TO 98.6; VENT SETTINGS A/C550/16/PEEP8
[2017-02-25 11:17] LABS: NUMBER OF ARTERIAL PUNCTURES 1; STAT YES
[2017-02-25 11:22] LABS: LACTIC ACID GHOST NOT REPORTABLE
[2017-02-25] MEDS ORDERED: SODIUM BICARBONATE 8.4% INJ 50 MEQ/50 ML SYR ONE (11:23)
--- NOTE | 2017-02-25 11:26 | PD.CONS ---
HPI Service neurosugery Consult Requested By [facility] Reason for Consult Subdural hematoma Primary Care Physician Luc Jones MD History of Present Illness This is a 76-year-old male with history of Myelodysplastic syndrome, type 2 DM, hypertension who presented to the emergency department with altered mental status. He apparently had a fall yesterday, striking the left aspect of his head. He was seen by his primary physician yesterday. He had decreasing mental status throughout the night, and EMS was called this morning. No seizure asctivity noted. No tongue bitting. No incontinence of stool or urine. EMS found GCS of 14, patient hypoxic with O2 saturation on room air of 72%. He was disoriented and appears confused. He was tachycardic with a heart rate in the 120s and respiratory rate in the 40s. His initial O2 saturation in ER was 52%, with nonrebreather came up to 90s. Rapid sequence intubation performed by Dr. De La Rosa as he remained hypoxic, confused. After Blood culture was drawn he was given cefepime and Zithromax. He had a fever of 102.2 and CXR showed bilateral basilar infiltrates. His WBC count was 26,000 (has MDS)and fever of 102.[address] the brain reveals a left subdural hemorrhage 9 mm with mild left-to- right shift of 2.6 mm. The patient's platelets were low at 28, I have ordered 3 U irradiated platelets and 2U PRBC, 1U FFP. Neurosurgery consultation was requested. Review of Systems It is not possible due to the patient's neurological condition ROS Limitations: Clinical Condition, Intubated, Altered Mental Status, Unresponsive Past Family Social History Allergies: Coded Allergies: No Known Allergies (Unverified , 11/03/16) Past Medical History Myelodysplastic syndrome with refractory anemia Thrombocytopenia Type 2 diabetes Hypertension Iron overload due to frequent blood transfusion Past Surgical History TURP Reported Medications Ciprofloxacin (Ciprofloxacin HCl) 250 Mg Tab 250 Mg PO BID Vitamin D (Cholecalciferol) 1,000 Unit Cap 1,000 Units PO DAILY Biotin 5,000 Mcg Cap 5,000 Mcg PO Vitamin B12 Tr (Cyanocobalamin) 1,000 Mcg Tab 1,000 Mcg PO DAILY Centrum Adults (Multiple Vitamins W/ Minerals) 1 Tab 1 Tab PO DAILY Terazosin (Terazosin HCl) 10 Mg Cap 10 Mg PO HS Pravastatin 20 Mg Tab 20 Mg PO HS Proscar (Finasteride) 5 Mg Tab 5 Mg PO HS Metformin (Metformin HCl) 1,000 Mg Tab 1,000 Mg PO BIDPC Benazepril (Benazepril HCl) 5 Mg Tab 5 Mg PO DAILY Active Ordered Medications Current Medications Etomidate (Amidate Inj) 20 mg STK-MED ONCE .ROUTE ; Start 02/25/17 at 08:37; Stop 02/25/17 at 08:38; Status DC Rocuronium [place] (Zemuron Inj) 50 mg STK-MED ONCE .ROUTE ; Start 02/25/17 at 08:37; Stop 02/25/17 at 08:38; Status DC Acetaminophen 650 mg 650 mg ONCE ONCE RECTAL Last administered on 02/25/17 09 :59; Start 02/25/17 at 09:00; Stop 02/25/17 at 09:01; Status DC Cefepime HCl 2000 mg/Sodium Chloride 100 ml @ 200 mls/hr ONCE STAT IV ; Start 02/25/17 at 08:46; Stop 02/25/17 at 09:15; Status DC Azithromycin 500 mg/Sodium Chloride 250 ml @ 250 mls/hr ONCE STAT IV ; Start 02/25/17 at 08:46; Stop 02/25/17 at 09:45; Status DC Sodium Chloride 1,000 ml @ 1,000 mls/hr Q1H ONCE IV Last administered on 09:57; Start 02/25/17 at 08:46; Stop 02/25/17 at 09:45; Status DC Sodium Chloride 1,000 ml @ 1,000 mls/hr Q1H ONCE IV Last administered on 09:57; Start 02/25/17 at 08:46; Stop 02/25/17 at 09:45; Status DC Sodium Chloride 400 ml @ 1,000 mls/hr Q24M ONCE IV Last administered on 09:58; Start 02/25/17 at 08:46; Stop 02/25/17 at 09:09; Status DC Fentanyl Citrate (fentaNYL DRIP) 250 ml @ 0 mls/hr TITRATE IV Last administered on 02/25/17 10:01; Start 02/25/17 at 09:00; Stop 02/25/17 at 10:31 ; Status DC Midazolam HCl 2.5 mg 2.5 mg ONCE ONCE IV ; Start 02/25/17 at 09:00; Stop at 09:01; Status DC Midazolam HCl (Versed Inj) 100 ml @ 0 mls/hr TITRATE IV Last administered on 10:01; Start 02/25/17 at 09:00 Midazolam HCl 2.5 mg 2.5 mg ONCE ONCE IV PUSH Last administered on 02/25/17 12:02; Start 02/25/17 at 09:00; Stop 02/25/17 at 09:01; Status DC Midazolam HCl 100 ml @ As Directed STK-MED ONCE .ROUTE ; Start 02/25/17 at 08: 54; Stop 02/25/17 at 08:55; Status DC Fentanyl Citrate 250 ml @ As Directed STK-MED ONCE .ROUTE ; Start 02/25/17 at 09:07; Stop 02/25/17 at 09:08; Status DC Sodium Chloride (NS 250 ml Inj) 250 ml @ 15 mls/hr ONCE ONCE IV ; Start at 09:30; Stop 02/26/17 at 02:09 Diphenhydramine HCl (Benadryl Inj) 25 mg UNSCH X1 PRN IV ITCHING; Start at 09:30; Stop 02/28/17 at 09:29 Acetaminophen 650 mg 650 mg UNSCH X1 PRN PO FEVER; Start 02/25/17 at 09:30; Stop 02/28/17 at 09:29 Sodium Chloride (NS 1000 ml Inj) 1,000 ml @ 150 mls/hr Q6H40M IV ; Start at 11:00; Stop 02/25/17 at 11:18; Status DC Sodium Chloride (NS Flush) 2 ml UNSCH PRN IV FLUSH FLUSH AFTER USING IV ACCESS ; Start 02/25/17 at 10:30 Sodium Chloride (NS Flush) 2 ml BID IV FLUSH ; Start 02/25/17 at 21:00 Acetaminophen (Tylenol) 650 mg Q6H PRN PO PAIN 1-10 AND/OR FEVER >101F; Start 02/25/17 at 10:30 Fentanyl Citrate (fentaNYL INJ) 50 mcg Q1H PRN IV SEE LABEL COMMENTS; Start at 10:30 Albuterol/ Ipratropium (Duoneb Neb) 1 ampule Q6HR NEB NEB Last administered on 02/25/17 15:01; Start 02/25/17 at 16:00 Albuterol Sulfate (Albuterol Neb) 2.5 mg Q4HR NEB PRN INH SHORTNESS OF BREATH; Start 02/25/17 at 10:30 Chlorhexidine Gluconate (Peridex 0.12% Liq) 15 ml BID@08,20 MT ; Start 02/25/17 at 20:00 Pantoprazole Sodium (Protonix Inj) 40 mg DAILY IV ; Start 02/26/17 at 09:00; Stop 02/26/17 at 09:00; Status DC Miscellaneous Information 1 [id number] Last administered on 02/25/17 14:04; Start 02/25/17 at 10:30 Chlorhexidine Gluconate (Chlorhexidine 2% Cloth) 3 pack Taper DAILY@04 TOP ; Start 02/26/17 at 04:00; Stop 02/22/18 at 03:59 Chlorhexidine Gluconate 3 pack 3 pack UNSCH PRN TOP HYGIENIC CARE; Start at 10:30 Propofol 100 ml @ 0 mls/hr TITRATE IV ; Start 02/25/17 at 10:30; Stop 02/25/17 at 11:01; Status DC Fentanyl Citrate 250 ml @ 0 mls/hr TITRATE IV ; Start 02/25/17 at 10:30 Piperacillin Sod/ Tazobactam Sod 50 ml @ 100 mls/hr Q8H IV Last administered on 02/25/17 13:23; Start 02/25/17 at 12:00 Vancomycin HCl 1000 mg/Sodium Chloride 250 ml @ 250 mls/hr ONCE ONCE IV ; Start 02/25/17 at 10:30; Stop 02/25/17 at 11:29; Status DC Sodium Chloride 1,000 ml @ 999 mls/hr BOLUS ONCE IV Last administered on 02/25 11:30; Start 02/25/17 at 10:30; Stop 02/25/17 at 11:30; Status DC Sodium Chloride (NS 1000 ml Inj) 1,000 ml @ 999 mls/hr BOLUS ONCE IV Last administered on 02/25/17 11:30; Start 02/25/17 at 10:30; Stop 02/25/17 at 11:30 ; Status DC Insulin Aspart 1 1 Q4H SQ Last administered on 02/25/17 15:00; Start 02/25/17 at 11:00 Sodium Chloride 1,000 ml @ 999 mls/hr BOLUS ONCE IV Last administered on 02/25 13:24; Start 02/25/17 at 10:45; Stop 02/25/17 at 11:45; Status DC Norepinephrine Bitartrate (Levophed-Dextrose Drip) 250 ml @ 0 mls/hr TITRATE IV Last administered on 02/25/17 11:03; Start 02/25/17 at 11:00; Stop 02/25/17 at 15:27; Status DC Terbutaline Sulfate (Brethine Inj) 1 mg UNSCH PRN SQ For Extravasation; Start 02/25/17 at 11:00 Norepinephrine Bitartrate 4 mg 4 mg STK-MED ONCE .ROUTE ; Start 02/25/17 at 10: 54; Stop 02/25/17 at 10:55; Status DC Pantoprazole Sodium 80 mg/ Sodium Chloride 35 ml @ 420 mls/hr ONCE ONCE IV Last administered on 02/25/17 16:09; Start 02/25/17 at 12:00; Stop 02/25/17 at 12:04; Status DC Pantoprazole Sodium 80 mg/ Sodium Chloride 100 ml @ 10 mls/hr Q10H IV Last administered on 02/25/17 16:09; Start 02/25/17 at 12:00 Sodium Bicarbonate/ Sodium Chloride (Sodium Bicarbonate 8.4% Inj/1/2 NS 1000 ml Inj) 1,075 ml @ 150 mls/hr Q7H10M IV Last administered on 02/25/17 16:09; Start 02/25/17 at 13:00; Stop 02/25/17 at 16:33; Status DC Sodium Bicarbonate 100 meq 100 meq ONCE ONCE IV PUSH Last administered on 02/25 12:00; Start 02/25/17 at 12:00; Stop 02/25/17 at 12:01; Status DC Azithromycin/ Sodium Chloride (Zithromax Inj/ NS 250 ml Inj) 250 ml @ 250 mls/ hr Q24H IV Last administered on 02/25/17 13:22; Start 02/25/17 at 13:00 Sodium Bicarbonate (Sodium Bicarbonate 8.4% Inj) 100 meq STK-MED ONCE .ROUTE Last administered on 02/25/17 11:30; Start 02/25/17 at 11:23; Stop 02/25/17 at 11:24; Status DC Rocuronium [place] 50 mg 50 mg BOLUS ONCE IV Last administered on 02/25/17 13 :23; Start 02/25/17 at 14:00; Stop 02/25/17 at 14:01; Status DC Sodium Chloride 500 ml @ 30 mls/hr CONTINUOUS IV ; Start 02/25/17 at 13:15 Phenylephrine HCl/ Dextrose (Neosynephrine Inj/D5W 500 ml Inj) 500 ml @ 0 mls/ hr TITRATE IV ; Start 02/25/17 at 14:00 Terbutaline Sulfate (Brethine Inj) 1 mg UNSCH PRN SQ For Extravasation; Start 02/25/17 at 13:15 Sodium Bicarbonate 100 meq 100 meq ONCE ONCE IV PUSH Last administered on 02/25 13:22; Start 02/25/17 at 13:15; Stop 02/25/17 at 13:16; Status DC Sodium Chloride 240 meq/Syringe / Bag 60 ml @ 120 mls/hr ONCE ONCE IV Last administered on 02/25/17 13:57; Start 02/25/17 at 13:30; Stop 02/25/17 at 13:59 ; Status DC Norepinephrine Bitartrate/Sodium Chloride (Levophed Inj/NS 250 ml Inj) 250 ml @ 0 mls/hr TITRATE IV ; Start 02/25/17 at 15:27 Heparin Sodium (Porcine) (Heparin Inj) 10,000 units STK-MED ONCE .ROUTE ; Start 02/25/17 at 16:50; Stop 02/25/17 at 16:51; Status DC Family History Unobtainable Social History Unobtainable . No alcohol or tobacco use per family Physical Exam Vital Signs Vital Signs Date Time Temp Pulse Resp B/P Pulse Ox O2 Delivery O2 Flow Rate FiO2 02/25/17 11:11 101.3 122 12 74/52 02/25/17 09:46 141 15 135/71 100 Ventilator 02/25/17 09:46 100 Ventilator 100 02/25/17 09:30 100 100 02/25/17 08:46 133 14 98 Ventilator 02/25/17 08:39 26 100 Non-Rebreather 15 02/25/17 08:38 100 Non-Rebreather 15 02/25/17 08:32 102.2 128 24 128/67 55 Physical Exam The patient is intubated and sedated. Hematoma with superficial abrasion and ecchymosis over the left frontal temporal area. No response to pain Cranial Nerves: Pupils equal, round, reactive to light. Eyes appear conjugated. There was no nystagmus, no papilledema. Face musculature appeared symmetrical at rest. Face sensation, olfaction, visual tang, and hearing cannot be adequately assessed due to his neurological condition. The patient has a corneal reflex. He has a gag reflex. The sternocleidomastoid and trapezius are symmetrical. Cervical Spine: His neck is soft, supple, without nuchal rigidity. Motor: His muscle tone and bulk are normal. No response to pain Reflexes: Deep tendon reflexes are 1+ and symmetrical in the biceps, triceps, and brachioradialis, bilaterally, in the upper extremities. In the lower extremities, the patellar and ankles are 1+, bilaterally. There is a bilateral plantar flexion response. There is no clonus or other abnormal reflexes noted. Sensory: On examination there is no response to painful stimuli Cerebellar: Examination cannot be adequately assessed due to the patient's neurological condition. Laboratory Laboratory Tests Test 02/25/17 02/25/17 02/25/17 02/25/17 09:00 09:10 10:20 11:06 White Blood Count 26.1 Red Blood Count 1.99 Hemoglobin 6.2 Bedside Hemoglobin 6.8 Hematocrit 18.1 Bedside Hematocrit 20.0 Mean Corpuscular Volume 91.2 Mean Corpuscular Hemoglobin 31.0 Mean Corpuscular Hemoglobin 34.0 Concent Red Cell Distribution Width 16.2 Platelet Count 28 Mean Platelet Volume 8.8 Neutrophils (%) (Auto) Lymphocytes (%) (Auto) Monocytes (%) (Auto) Eosinophils (%) (Auto) Basophils (%) (Auto) Neutrophils # (Auto) Lymphocytes # (Auto) Monocytes # (Auto) Eosinophils # (Auto) Basophils # (Auto) CBC Comment AUTO DIFF Differential Total Cells 100 Counted Neutrophils % (Manual) 36 Band Neutrophils % 18 Lymphocytes % 12 Monocytes % 22 Neutrophils # (Manual) 17.2 Metamyelocytes 5 Myelocytes 6 Promyelocytes 1 Differential Comment FINAL DIFF MANUAL Platelet Estimate RARE Platelet Morphology Comment NORMAL Ovalocytes 1+ Prothrombin Time 15.8 Prothromb Time International 1.4 Ratio Activated Partial 30.0 Thromboplast Time Bedside Sodium 130 Sodium Level 129 Bedside Potassium 5.0 Potassium Level 4.7 Bedside Chloride 98 Chloride Level 98 Carbon Dioxide Level 15.4 Anion Gap 16 Bedside Blood Urea Nitrogen 72 Blood Urea Nitrogen 64 Creatinine 4.31 Bedside Creatinine 3.9 Estimat Glomerular Filtration 13 Rate Bedside Glucose 328 Random Glucose 322 Calcium Level 8.4 Magnesium Level 1.8 Total Bilirubin 1.0 Aspartate Amino Transf 124 (AST/SGOT) Alanine Aminotransferase 102 (ALT/SGPT) Alkaline Phosphatase 65 Total Creatine Kinase 193 Creatine Kinase MB 3.6 Troponin I 1.52 Total Protein 6.7 Albumin 3.3 Lipase 50 Urine Color DARK-YELLOW Urine Turbidity CLOUDY Urine pH 5.0 Urine Specific Stewart 1.017 Urine Protein 100 Urine Glucose (UA) 70 Urine Ketones NEG Urine Occult Blood LARGE Urine Nitrite NEG Urine Bilirubin NEG Urine Urobilinogen LESS THAN 2.0 Urine Leukocyte Esterase NEG Urine RBC 34 Urine WBC 14 Urine Squamous Epithelial 3 Cells Urine Amorphous Sediment FEW Urine Bacteria FEW Urine Granular Casts 7 Microscopic Urinalysis Comment CATH-CULTURE IND Lactic Acid Level 5.3 Ammonia 48 Blood Type O POSITIVE Antibody Screen NEGATIVE Crossmatch Leukocyte-Reduced Leukocyte-Reduced Red Blood Red Blood Cells Cells Blood Bank Comment Blood Gas Puncture Site LT RADIAL Blood Gas Patient Temperature 98.6 Blood Gas HCO3 16 Blood Gas Base Excess -12.0 Blood Gas Oxygen Saturation 94 Arterial Blood pH 7.13 Arterial Blood Partial 49 Pressure CO2 Arterial Blood Partial 116 Pressure O2 Arterial Blood Oxygen Content 7.3 Arterial Blood 1.1 Carboxyhemoglobin Arterial Blood Methemoglobin 1.4 Blood Gas Hemoglobin 5.3 Oxygen Delivery Device VENTILATOR Blood Gas Ventilator Setting A/C550/16/PEEP8 Blood Gas Inspired Oxygen 100 Date/Time Procedure Status Source Growth 02/25/17 09:10 Urine Culture Received Urine Catheterized Urine Pending 02/25/17 09:10 Aerobic Blood Culture Received Blood Peripheral Pending 02/25/17 09:10 Anaerobic Blood Culture Received Blood Peripheral Pending Result Diagram: 02/25/17 0900 02/25/17 0900 Imaging Last Impressions Head CT 4/14/17 0846 Signed Impressions: Service Date/Time: Saturday, February 25, 2017 09:29 - CONCLUSION: Left frontal subdural hematoma with mild midline shift. Atrophy. Mark Mendoza MD Chest X-Ray 02/25/17845 Signed Impressions: Service Date/Time: Saturday, February 25, 2017 08:56 - CONCLUSION: Endotracheal tube as above. Mark Mendoza MD Assessment and Plan Assessment and Plan (1) Acute subdural hematoma Diagnosis: Principal (2) Acute encephalopathy Diagnosis: Principal (3) Acute hypoxemic respiratory failure Diagnosis: Principal (4) Septic shock Diagnosis: Principal (5) Bilateral pneumonia Diagnosis: Principal (6) Severe sepsis Diagnosis: Principal (7) Lactic acidosis Diagnosis: Principal (8) Thrombocytopenia Diagnosis: Principal (9) Elevated troponin Diagnosis: Principal (10) Anemia Diagnosis: Principal (11) Acute renal failure Diagnosis: Principal (12) Myelodysplasia (myelodysplastic syndrome) Diagnosis: Secondary (13) Shock Diagnosis: Principal (14) UGIB (upper gastrointestinal bleed) Diagnosis: Principal (15) Hyperlipidemia Diagnosis: Secondary (16) Type 2 diabetes mellitus Diagnosis: Secondary (17) Hypertension Diagnosis: Secondary Attending Statement I reviewed her clinical and further studies. neuro checks in a serial fashion. Placement of ICP monitor is indicated as recommended by the [employer] neurological [employer] as she is not waking up, in order to direct therapy and changes. A follow-up CT will be obtained in 24 hours. If there is increase in her ICP, or increase in the size of the hematoma on CT surgical decompression with the craniotomy may be necessary Respiratory. Full mechanical ventilation in assist control mode of mechanical ventilation, pulmonary toilette, nasotracheal suction, and breathing treatments with nebulizers. Thrombocytopenia: Transfuse platelets. Consult hematology PT and OT eval Nutrition. NPO Renal. monitor closely urine output, BUN and creatinine Endocrine. Monitor serial Acu checks and SSI for tight control ID monitor for signs of infection Protonix for stress ulcer prophylaxis Gonzalo hose and SCD's for DVT prophylaxis Burak Sanders MD Feb 25, 2017 11:26
--- NOTE | 2017-02-25 11:34 | RADRPT ---
EXAM DATE/TIME: 02/25/2017 11:00 [facility] COMPARISON: CHEST SINGLE AP, February 25, 2017, 8:56. INDICATIONS : Left central line placement. MEDICAL HISTORY : None. SURGICAL HISTORY : None. ENCOUNTER: Initial ACUITY: 1 day PAIN SCORE: Non-responsive. LOCATION: Bilateral chest FINDINGS: Mild diffuse interstitial prominence is increased. Right portacatheter tip overlies the SVC/right atr ial junction. Endotracheal tube in satisfactory position. Enteric tube courses beneath the diaphragm. The side port is at the esophagogastric junction. Left subclavian line tip overlies the SVC. There i s consolidation in the left lower lobe and right basilar atelectasis unchanged. CONCLUSION: Left subclavian line as above. Mark Mendoza MD on February 25, 2017 at 11:32 Board Certified Radiologist. This report was verified electronically.
[2017-02-25] MEDS ORDERED: PANTOPRAZOLE INJ 80 MG in SODIUM CHLORIDE 0.9% INJ 35 ML IV ONE (12:00)
[2017-02-25] MEDS ORDERED: SODIUM BICARBONATE 8.4% INJ 50 MEQ/50 ML SYR IV PUSH ONE ×2 (12:00→13:15)
--- NOTE | 2017-02-25 12:50 | RADRPT ---
EXAM DATE/TIME: 02/25/2017 11:44 [facility] COMPARISON: CT THORAX W/O CONTRAST, June 06, 2016, 10:16. INDICATIONS : Evaluate infiltrate, vented RADIATION DOSE: 5.66 CTDIvol (mGy) MEDICAL HISTORY : Hypertension. Diabetes mellitus type 2. SURGICAL HISTORY : None. ENCOUNTER: Initial ACUITY: 1 day PAIN SCALE: 0/10 LOCATION: chest TECHNIQUE: Volumetric scanning of the chest was performed. Using automated exposure control and adjustment of t he mA and/or kV according to patient size, radiation dose was kept as low as reasonably achievable to obtain optimal diagnostic quality images. FINDINGS: LUNGS: Dense airspace consolidation is identified in both lower lobes. There is patchy airspace disease thro ughout both lungs. The consolidating process in the right lung base contains high density material PLEURAE: Small bilateral pleural effusions are present. MEDIASTINUM: The heart and great vessels demonstrate no acute abnormality. There is no mediastinal or hilar lymph adenopathy. AXILLAE: Within normal limits. No lymphadenopathy. MUSCULOSKELETAL: Within normal limits for patient age. MISCELLANEOUS: The visualized upper abdominal organs demonstrate no acute abnormality. CONCLUSION: Dense bibasilar lung consolidation. Scattered patchy airspace disease. Radiopaque material within the right lung base characteristic of possible aspiration . Endotracheal and nasogastric tubes are in good position. Derick Preciado MD on February 25, 2017 at 12:44 Board Certified Radiologist. This report was verified electronically.
[2017-02-25] MEDS ORDERED: SODIUM BICARBONATE 8.4% INJ 75 MEQ in SODIUM CHLOR 0.45% 1000 ML INJ 1,000 ML IV SCH (13:00)
--- NOTE | 2017-02-25 13:02 | MB ---
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 The patient apparently fell yesterday striking the left side of his head and subsequently develop worsening mental status throughout the night. Here in the emergency room, he has been tachycardiac into the 120s and 130s (sinus tachycardia). Troponin level was checked and found to be abnormal. No other clinical history is obtainable from the patient who is intubated and sedated. PAST MEDICAL HISTORY 1. Hypertension 2. Diabetes 3. Hyperlipidemia 4. Chronic renal insufficiency 5. 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 PAST SURGICAL HISTORY 1. Transurethral resection of the prostate 2. Lasik eye surgery ALLERGIES NO KNOWN DRUG ALLERGIES. MEDICATIONS AT HOME Cardiac medications at home: pravastatin. FAMILY HISTORY Currently unobtainable. SOCIAL HISTORY Currently unobtainable. He apparently is a nonsmoker with no history of alcohol abuse. REVIEW OF SYSTEMS Currently unobtainable. PHYSICAL EXAMINATION VITAL SIGNS: Blood pressure 135/70 with a pulse of 140, respirations 15. GENERAL: He is a well-developed, well-nourished white male currently intubated and sedated. HEENT: On examination, jugular venous pressure is hard to assess, it appears to be normal. Carotid pulses are 2+ bilaterally and without bruits. CHEST: Examination of the chest reveals clear lung tnag anteriorly. CARDIAC: On cardiac examination, he has a tachycardiac regular rhythm without S3, S4 or murmur. ABDOMEN: On abdominal examination, he has a soft, nontender abdomen. Bowel sounds are present. There is no definite hepatosplenomegaly. EXTREMITIES: Examination of the extremities reveals no clubbing, cyanosis or edema. LABORATORY DATA Includes WBC 26.1, hemoglobin 6.8, platelets 28. Potassium 5.0, sodium 129, BUN 64, creatinine 4.31, troponin 1.52, CK 193, INR 1.4. Chest x-ray shows bilateral airspace disease, greatest in the left lower lobe as well as right basilar atelectasis. IMPRESSION Abnormal troponin level, tachycardia (sinus tachycardia) in this 76-year-old white male with a history of hypertension, diabetes, myelodysplastic syndrome/myeloproliferative neoplasm overlap, now admitted with mental status changes, severe thrombocytopenia, acute on chronic renal insufficiency, acute left-sided subdural hematoma. Overall, I doubt the abnormal troponin level is due to an acute myocardial event. The elevation may be due to his renal insufficiency. CK is negative for myocardial infarction. I am unable to locate his EKG in the emergency department, but apparently it shows no acute ST-segment or T-wave changes. Needless to say, he would be a poor candidate for invasive cardiac evaluation with his severe hematologic and renal problems. RECOMMENDATIONS Check a 2-D echo to assess his left ventricular and valvular function; unless the echocardiogram reveals significant abnormalities, would not pursue further cardiac workup or administer additional cardiac therapy. MD CHLOE Logan/MARIO ALBERTO /11:09 AM /12:50 PM LISA
[2017-02-25 13:03] LABS: BLOOD GAS BASE EXCESS -9.7 mmol/L (-2-2); BLOOD GAS CARBOXYHEMOGLOBIN 1.3 % (0-4); BLOOD GAS HCO3 17 mmol/L (22-26); BLOOD GAS METHEMOGLOBIN 1.4 % (0-2); BLOOD GAS O2 HGB SATURATION 88 % (90-100); BLOOD GAS OXYGEN CONTENT 9.2 Vol % (12.0-20.0); BLOOD GAS PCO2 48 mmHg (38-42); BLOOD GAS PO2 71 mmHg (61-120); BLOOD GAS TOTAL HGB 7.4 G/DL (12.0-16.0); TEMP CORR TO 98.6
[2017-02-25 13:04] LABS: CRITICAL VALUE YES; DRAW SITE ART LINE; FIO2 100 %; OXYGEN DEVICE VENTILATOR; VENT SETTINGS 600/18/PEEP8
[2017-02-25 13:09] LABS: NUMBER OF ARTERIAL PUNCTURES 0; STAT YES
[2017-02-25] MEDS ORDERED: 3% SALINE INJ 500 ML IV SCH (13:15)
[2017-02-25] MEDS: AZITHROMYCIN INJ 500 MG in SODIUM CHLOR 0.9% 250 ML INJ 250 ML IV SCH (13:22)
[2017-02-25] MEDS: PIPERACIL-TAZO 3.375 GM PREMIX 50 ML IV SCH ×2 (13:23→20:50)
--- NOTE | 2017-02-25 13:26 | MB ---
cc: [facility] DATE OF CONSULTATION: 02/25/2017 DATE OF : 1940 REASON FOR CONSULTATION: Patient with a history of MDS / MPN overlap syndrome who presents with a fall and was found to have subdural bleed. CHIEF COMPLAINT Patient is currently intubated. HISTORY OF PRESENT ILLNESS: Mr. Dior is 76-year-old male who has a history of MDS / MPN overlap syndrome. He has low grade MDS, without any excess blasts. He has refractory anemia requiring frequent blood transfusions. He also has thrombocytopenia but has not required platelet transfusions in the past. He is currently on Revlimid. He also gets frequent iron chelation therapy for iron overload due to frequent blood transfusions. The patient had presented to his primary care physician yesterday with dyspnea. His O2 oxygen saturations were found to be low and he was advised to go to the emergency department, however the patient did not present to the emergency department and went home. Apparently at some point he had a fall and hit his head with abrasions on his forehead. The patient was brought to the emergency department via EMS. He was altered and he was emergently intubated. The patient had a CT of the head on admission which shows a subdural hematoma along the left frontal convexity with a thickness of 9 mm. There is a mild rlgm-og-slkgu shift of 2.6 mm's. The patient has a platelet count of 28,000 with hemoglobin is 6.2. He is currently getting 3 units of platelets. His PT is elevated at 15.8, INR is 1.4. His is not present in the emergency department. REVIEW OF SYSTEMS Unable to obtain since the patient is intubated and sedated. PAST MEDICAL HISTORY 1. MDS / MPN overlap syndrome 2. Thrombocytopenia. 3. Anemia 4. History of chronic hematuria 5. BPH. PAST SURGICAL HISTORY 1. History of Transurethral resection of the prostate 2. History of bone marrow biopsy. MEDICATIONS 1. Cipro 240-51 pounds p.o. b.i.d. 2. Vitamin D 1000 units p.o. daily. 3. Biotin 5000 mcg daily. 4. Vitamin B12 1000 mcg daily. 5. Terazosin 10 mg p.o. q.h.s. 6. Pravastatin 20 mg p.o. q.h.s. 7. Proscar 5 mg tablet p.o. q.h.s. 8. Metformin 1000 mg p.o. b.i.d. 9. Benazepril 5 mg tablet p.o. daily. ALLERGIES NO KNOWN DRUG ALLERGIES. FAMILY HISTORY AND SOCIAL HISTORY Cannot be obtained but he does not have any history of alcohol and drug abuse. PHYSICAL EXAMINATION VITAL SIGNS: Vital signs: Blood pressure is 105/62, pulse is 1801, 20, temperature is 100.6, O2 sats currently on ventilator. FIO2 100%. GENERAL: Acutely ill patient currently intubated and sedated. HEAD, EYES, EARS, NOSE, AND THROAT: Equal, round, reactive to light nonreactive. There is a superficial abrasion ecchymosis over the left frontal temporal area. NECK: Neck is supple. No JVD, no bruits. No lymphadenopathy. CARDIOVASCULAR SYSTEM: Tachycardiac. RESPIRATORY: Currently on ventilator bilateral coarse sounds heard. ABDOMEN: The abdomen is soft, nontender. NEUROLOGIC: Neuro intubated and sedated. LABORATORY DATA WBC 26.1, hemoglobin is 6.2, platelet count is 628. Serum Chemistries show sodium of 138, potassium 5, chloride 98, BUN 72, creatinine 4.31, glucose 328, lactic acid 5.3, ammonia 48. Coags; PT is 15.8, INR is 1.4. IMAGING: Imaging was reviewed. ASSESSMENT/PLAN This is a 76-year-old male with a history of MDS / MPN syndrome who presents with head trauma after a fall. He has subdural hematoma with the midline shift. 1. There is subdural hematoma with some midline shift. Neurosurgery has seen the patient. Appreciate their recommendations. We will transfuse three units of platelets today. Will try to keep his platelets above 70,000. His baseline platelet count is between 45 to mid 50s. If he needs to undergo surgery we will have to transfuse bring his platelet count above 90,000. He will need platelet transfusions intraoperatively and postoperatively. 2. Anemia and bleeding. Transfuse two units of packed red blood cells. We will try to keep his hemoglobin greater than 8. 3. Coagulopathy with guaiac positive stools and blood in the NG tube. I will give him 2 units of FFP. 4. Respiratory failure currently on ventilation. 5. Sepsis / pneumonia. Agree with antibiotics. 6. Acute renal failure due to acute trauma, sepsis and dehydration. Aggressive resuscitation blood transfusion. Thank you for allowing me to participate in the care of this patient. I will continue to follow this patient along. MD LUCIA Tiwari/claudio /11:41 AM /1:01 PM [email or web address]
[2017-02-25] MEDS ORDERED: SODIUM CHLORIDE 23.4% INJ 240 MEQ in SYRINGE/BAG 1 EA IV ONE (13:30)
--- NOTE | 2017-02-25 13:48 | PD.CONS ---
HPI History of Present Illness This is a 76 year old male with history of Myelodysplastic syndrome, type 2 DM , hypertension who presented to the emergency department via EMS for altered mental status. He had a fall yesterday while trying to get out of bed striking the left aspect of his head, he developed decreasing mental status throughout the night, and EMS was called today am. He was seen by his PCP yesterday following the fall. Patient currently is intubated, sustained subdural hematoma , vascular surgeon, cardiology on the case. GI consulted for upper GI bleed. bloody coffee ground gastric out put noted in the OG tube and the canister. Family by bed side, stating, he has gets blood transfusion weekly, he is normally very fatigue and the only time he has energy is following transfusion. hgb is 6.2, plt 28. He is receiving blood transfusion and platelets. He is hypotensive, and on pressors full dose. PFSH Past Medical History Per EMR Myelodysplastic syndrome with refractory anemia Thrombocytopenia Type 2 diabetes Hypertension Iron overload due to frequent blood transfusion Past Surgical History TURP Coded Allergies: No Known Allergies (Unverified , 11/03/16) Medications Current Medications Medications (Trade) Dose Ordered Sig/Bigg Route Start Time Stop Time Status Last Admin Midazolam HCl 100 ml @ 0 mls/hr TITRATE IV 02/25/17 09:00 02/25/17 10:01 (NS 250 ml Inj) 250 ml @ 15 mls/hr ONCE ONCE IV 02/25/17 09:30 02/26/17 02:09 (NS Flush) 2 ml UNSCH PRN IV FLUSH 02/25/17 10:30 (NS Flush) 2 ml BID IV FLUSH 02/25/17 21:00 (Tylenol) 650 mg Q6H PRN PO 02/25/17 10:30 (fentaNYL INJ) 50 mcg Q1H PRN IV 02/25/17 10:30 (Peridex 0.12% Liq) 15 ml BID@08,20 MT 02/25/17 20:00 Miscellaneous Information 1 Q361D XX 02/25/17 10:30 (Chlorhexidine 2% Cloth) 3 pack Taper DAILY@04 TOP 02/26/17 04:00 02/22/18 03:59 Chlorhexidine Gluconate 3 pack 3 pack UNSCH PRN TOP 02/25/17 10:30 Fentanyl Citrate 250 ml @ 0 mls/hr TITRATE IV 02/25/17 10:30 (Zosyn 3.375 Gm Premix) 50 ml @ 100 mls/hr Q8H IV 02/25/17 12:00 Insulin Aspart 1 1 Q4H SQ 02/25/17 11:00 (Levophed-Dextrose Drip) 250 ml @ 0 mls/hr TITRATE IV 02/25/17 11:00 02/25/17 11:03 Terbutaline Sulfate 1 mg 1 mg UNSCH PRN SQ 02/25/17 11:00 Pantoprazole Sodium 80 mg/ Sodium Chloride 100 ml @ 10 mls/hr Q10H IV 02/25/17 12:00 Sodium Bicarbonate 75 meq/Sodium Chloride 1,075 ml @ 150 mls/hr Q7H10M IV 02/25/17 13:00 (Zithromax Inj/ NS 250 ml Inj) 250 ml @ 250 mls/hr Q24H IV 02/25/17 13:00 Rocuronium [place] 50 mg 50 mg BOLUS ONCE IV 02/25/17 14:00 02/25/17 14:01 Sodium Chloride 500 ml @ 30 mls/hr CONTINUOUS IV 02/25/17 13:15 (Neosynephrine Inj/D5W 500 ml Inj) 500 ml @ 0 mls/hr TITRATE IV 02/25/17 14:00 (Brethine Inj) 1 mg UNSCH PRN SQ 02/25/17 13:15 (Sodium Bicarbonate 8.4% Inj) 100 meq ONCE ONCE IV PUSH 02/25/17 13:15 02/25/17 13:16 Family History Non contributory Social History No alcohol or smoking Review of Systems Constitutional: COMPLAINS OF: Fatigue Gastrointestinal: COMPLAINS OF: Hematemesis Genitourinary: COMPLAINS OF: Hematuria Psychiatric: COMPLAINS OF: Confusion ROS Patient is intubated, ROS obtained by observing the patient and talking to family GI Exam Vitals I&O Vital Signs Date Time Temp Pulse Resp B/P Pulse Ox O2 Delivery O2 Flow Rate FiO2 02/25/17 12:50 93 100 02/25/17 12:04 96 100 02/25/17 12:00 92 100 02/25/17 11:32 100.6 123 105/62 02/25/17 11:11 101.3 122 12 74/52 02/25/17 09:46 141 15 135/71 100 Ventilator 02/25/17 09:46 100 Ventilator 100 02/25/17 09:30 100 100 02/25/17 08:46 133 14 98 Ventilator 02/25/17 08:39 26 100 Non-Rebreather 15 02/25/17 08:38 100 Non-Rebreather 15 02/25/17 08:32 102.2 128 24 128/67 55 Imaging Last Impressions Head CT 02/25/17 0846 Signed Impressions: Service Date/Time: Saturday, February 25, 2017 09:29 - CONCLUSION: Left frontal subdural hematoma with mild midline shift. Atrophy. Mark Mendoza MD Chest X-Ray 02/25/17 0846 Signed Impressions: Service Date/Time: Saturday, February 25, 2017 08:56 - CONCLUSION: Endotracheal tube as above. Mark Mendoza MD Chest CT 02/25/17 0000 Signed Impressions: Service Date/Time: Saturday, February 25, 2017 11:44 - CONCLUSION: Dense bibasilar lung consolidation. Scattered patchy airspace disease. Radiopaque material within the right lung base characteristic of possible aspiration . Endotracheal and nasogastric tubes are in good position. Derick Preciado MD Laboratory Test 02/25/17 02/25/17 02/25/17 02/25/17 09:00 09:10 10:20 11:06 White Blood Count 26.1 TH/MM3 Red Blood Count 1.99 MIL/MM3 Hemoglobin 6.2 GM/DL Bedside Hemoglobin 6.8 G/DL Hematocrit 18.1 % Bedside Hematocrit 20.0 % Mean Corpuscular Volume 91.2 FL Mean Corpuscular Hemoglobin 31.0 PG Mean Corpuscular Hemoglobin 34.0 % Concent Red Cell Distribution Width 16.2 % Platelet Count 28 TH/MM3 Mean Platelet Volume 8.8 FL Neutrophils (%) (Auto) % Lymphocytes (%) (Auto) % Monocytes (%) (Auto) % Eosinophils (%) (Auto) % Basophils (%) (Auto) % Neutrophils # (Auto) TH/MM3 Lymphocytes # (Auto) TH/MM3 Monocytes # (Auto) TH/MM3 Eosinophils # (Auto) TH/MM3 Basophils # (Auto) TH/MM3 CBC Comment AUTO DIFF Differential Total Cells 100 Counted Neutrophils % (Manual) 36 % Band Neutrophils % 18 % Lymphocytes % 12 % Monocytes % 22 % Neutrophils # (Manual) 17.2 TH/MM3 Metamyelocytes 5 % Myelocytes 6 % Promyelocytes 1 % Differential Comment FINAL DIFF MANUAL Platelet Estimate RARE Platelet Morphology Comment NORMAL Ovalocytes 1+ Prothrombin Time 15.8 SEC Prothromb Time International 1.4 RATIO Ratio Activated Partial 30.0 SEC Thromboplast Time Bedside Sodium 130 MMOL/L Sodium Level 129 MEQ/L Bedside Potassium 5.0 MMOL/L Potassium Level 4.7 MEQ/L Bedside Chloride 98 MMOL/L Chloride Level 98 MEQ/L Carbon Dioxide Level 15.4 MEQ/L Anion Gap 16 MEQ/L Bedside Blood Urea Nitrogen 72 MG/DL Blood Urea Nitrogen 64 MG/DL Creatinine 4.31 MG/DL Bedside Creatinine 3.9 MG/DL Estimat Glomerular Filtration 13 ML/MIN Rate Bedside Glucose 328 MG/DL Random Glucose 322 MG/DL Calcium Level 8.4 MG/DL Magnesium Level 1.8 MG/DL Total Bilirubin 1.0 MG/DL Aspartate Amino Transf 124 U/L (AST/SGOT) Alanine Aminotransferase 102 U/L (ALT/SGPT) Alkaline Phosphatase 65 U/L Total Creatine Kinase 193 U/L Creatine Kinase MB 3.6 NG/ML Troponin I 1.31 NG/ML Total Protein 6.7 GM/DL Albumin 3.3 GM/DL Lipase 50 U/L Urine Color DARK-YELLOW Urine Turbidity CLOUDY Urine pH 5.0 Urine Specific [place] 1.017 Urine Protein 100 mg/dL Urine Glucose (UA) 70 mg/dL Urine Ketones NEG mg/dL Urine Occult Blood LARGE Urine Nitrite NEG Urine Bilirubin NEG Urine Urobilinogen LESS THAN 2.0 MG/DL Urine Leukocyte Esterase NEG Urine RBC 34 /hpf Urine WBC 14 /hpf Urine Squamous Epithelial 3 /hpf Cells Urine Amorphous Sediment FEW Urine Bacteria FEW /hpf Urine Granular Casts 7 /lpf Microscopic Urinalysis Comment CATH-CULTURE IND Lactic Acid Level 5.3 mmol/L Ammonia 48 MCMOL/L Blood Type O POSITIVE Antibody Screen NEGATIVE Crossmatch Leukocyte-Reduced Leukocyte-Reduced Red Blood Red Blood Cells Cells Blood Bank Comment Blood Gas Puncture Site LT RADIAL Blood Gas Patient Temperature 98.6 Blood Gas HCO3 16 mmol/L Blood Gas Base Excess -12.0 mmol/L Blood Gas Oxygen Saturation 94 % Arterial Blood pH 7.13 Arterial Blood Partial 49 mmHg Pressure CO2 Arterial Blood Partial 116 mmHG Pressure O2 Arterial Blood Oxygen Content 7.3 Vol % Arterial Blood 1.1 % Carboxyhemoglobin Arterial Blood Methemoglobin 1.4 % Blood Gas Hemoglobin 5.3 G/DL Oxygen Delivery Device VENTILATOR Blood Gas Ventilator Setting A/C550/16/PEEP8 Blood Gas Inspired Oxygen 100 % Test 02/25/17 02/25/17 11:42 12:53 Blood Bank Comment Blood Gas Puncture Site ART LINE Blood Gas Patient Temperature 98.6 Blood Gas HCO3 17 mmol/L Blood Gas Base Excess -9.7 mmol/L Blood Gas Oxygen Saturation 88 % Arterial Blood pH 7.18 Arterial Blood Partial 48 mmHg Pressure CO2 Arterial Blood Partial 71 mmHg Pressure O2 Arterial Blood Oxygen Content 9.2 Vol % Arterial Blood 1.3 % Carboxyhemoglobin Arterial Blood Methemoglobin 1.4 % Blood Gas Hemoglobin 7.4 G/DL Oxygen Delivery Device VENTILATOR Blood Gas Ventilator Setting 600/18/PEEP8 Blood Gas Inspired Oxygen 100 % Date/Time Procedure Status Source Growth 02/25/17 09:10 Urine Culture Received Urine Catheterized Urine Pending 02/25/17 09:10 Aerobic Blood Culture Received Blood Peripheral Pending 02/25/17 09:10 Anaerobic Blood Culture Received Blood Peripheral Pending Physical Examination HEENT: bruises on the left side of the head, intubated, no jaundice. CHEST: on ventilatory, coarse breath sounds CARDIAC: Regular rate and rhythm with no murmur gallop or rubs. ABDOMEN: Soft, nondistended, nontender; no hepatosplenomegaly; bowel sounds are present in all four quadrants. EXTREMITIES: No clubbing, cyanosis, or edema. SKIN: Normal,; no jaundice. 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 Currently patient is intubated, sedated on a vent, OG tube with bloody coffee ground emesis hgb of 6.2, plt 28, 5 units of blood and 3 units of platelets ordered and one unit of FFP, on pressers, not stable for EGD - Acute subdural hematoma - Acute encephalopathy - Bilateral Pneumonia - Severe sepsis - ARF - Anemia - Thrombocytopenia of 28, receiving plt, 3 units ordered - Myelodysplasia requiring weekly blood transfusion and followed by Dr. Louis - Respiratory failure intubated per [facility] Plan - NPO - OGT to LIWS - Cont. to monitor hh - Transfuse as needed - Correct plt count - PPI - Supportive care - EGD once medically stable, will follow clinical course - Patient seen and examined by Dr. Thomas and myself and this note is written on his behalf. Chery Ruiz Feb 25, 2017 13:48
[2017-02-25] MEDS ORDERED: ROCURONIUM INJ 50 MG/5 ML VIAL IV ONE (14:00)
[2017-02-25 14:14] LABS: BLOOD GAS BASE EXCESS -6.7 mmol/L (-2-2); BLOOD GAS CARBOXYHEMOGLOBIN 1.2 % (0-4); BLOOD GAS HCO3 19 mmol/L (22-26); BLOOD GAS METHEMOGLOBIN 1.3 % (0-2); BLOOD GAS O2 HGB SATURATION 93 % (90-100); BLOOD GAS OXYGEN CONTENT 10.5 Vol % (12.0-20.0); BLOOD GAS PCO2 48 mmHg (38-42); BLOOD GAS PO2 86 mmHg (61-120); BLOOD GAS TOTAL HGB 7.9 G/DL (12.0-16.0); TEMP CORR TO 98.6
[2017-02-25 14:15] LABS: CRITICAL VALUE YES; DRAW SITE ART LINE; FIO2 100 %; OXYGEN DEVICE VENTILATOR; STAT NO; VENT SETTINGS 600/20/PEEP8
--- NOTE | 2017-02-25 14:23 | PD.CONS ---
[facility] Service Nephrology Consult Requested By Reason for Consult Acute renal failure Primary Care Physician Luc Jones MD History of Present Illness We were consulted to assist in the care of this 76 y/o male patient who is critically ill. He was admitted today with altered mental status, had recently experienced a fall with head trauma. In the ER he became obtunded, tachycardic, tachypneic, but remained hypoxic, therefore he was intubated. CT of the head showed a left subdural hemorrhage 9 mm with mild brqg-hp-[id number] shift of 2.6 mm. 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 The nurse reports he has a hx of aggressive AML, but I have not confirmed that history and it was not mentioned in the evaluation by oncology. Other pertinent medical history includes DM II, HTN, prior TURP due to BPH. He has significant lab abnormalities including WBC 26.1, Na 130, C02 15.4, BUN 72, Cr 3.9, Glucose 328, lactic acid 3.5 (prev 5.3), troponin 1.31. It appears his baseline renal function from November 2016 is cretainine 1.2-1.3 with GFR 49-54, consistent with CKD 3 although no contract runner has seen him during previous admissions and I am unable to verify if he follows outpatient. His ABG shows uncompensated respiratory acidosis, pH 7.18. He had an A line, central line, and ventriculostomy placed, his ICP is high at 22. He is hypotensive on pressors , on 3% saline to prevent cerebral edema. He is febrile, UA with Ecoli, CXR showing radiopaque material in RLL suggesting aspiration. He also is coagulopathic with extensive upper GI bleeding through OG tube. He is in the process of being transfused with FFP, PRBC, and platelets. He has a escobar in place, urine output is minimal and hematuria has begun. He is a full code at this time. (Charito Soares) Review of Systems ROS Limitations: Intubated, Unresponsive (Charito Soares) Past Family Social History Allergies: Coded Allergies: No Known Allergies (Unverified , 11/03/16) Past Medical History Myelodysplastic, thrombocytopenia and anemia Iron overload due to frequent blood transfusion requiring chelation therapy Type 2 diabetes Hypertension CKD per lab work, basline creatinine 1.2-1.3, GFR 49-54, consistent with CKD 3 Past Surgical History TURP Reported Medications Vitamin D (Cholecalciferol) 1,000 Unit Cap 1,000 Units PO DAILY Biotin 5,000 Mcg Cap 5,000 Mcg PO Vitamin B12 Tr (Cyanocobalamin) 1,000 Mcg Tab 1,000 Mcg PO DAILY Centrum Adults (Multiple Vitamins W/ Minerals) 1 Tab 1 Tab PO DAILY Terazosin (Terazosin HCl) 10 Mg Cap 10 Mg PO HS Pravastatin 20 Mg Tab 20 Mg PO HS Proscar (Finasteride) 5 Mg Tab 5 Mg PO HS Do not crush. Metformin (Metformin HCl) 1,000 Mg Tab 1,000 Mg PO BIDPC With meals Benazepril (Benazepril HCl) 5 Mg Tab 5 Mg PO DAILY Active Ordered Medications Current Medications Medications (Trade) Dose Ordered Sig/Bigg Route Start Time Stop Time Status Last Admin Midazolam HCl 100 ml @ 0 mls/hr TITRATE IV 02/25/17 09:00 02/25/17 10:01 (NS 250 ml Inj) 250 ml @ 15 mls/hr ONCE ONCE IV 02/25/17 09:30 02/26/17 02:09 (NS Flush) 2 ml UNSCH PRN IV FLUSH 02/25/17 10:30 (NS Flush) 2 ml BID IV FLUSH 02/25/17 21:00 (Tylenol) 650 mg Q6H PRN PO 02/25/17 10:30 (fentaNYL INJ) 50 mcg Q1H PRN IV 02/25/17 10:30 (Peridex 0.12% Liq) 15 ml BID@08,20 MT 02/25/17 20:00 Miscellaneous Information 1 Q361D XX 02/25/17 10:30 (Chlorhexidine 2% Cloth) 3 pack Taper DAILY@04 TOP 02/26/17 04:00 02/22/18 03:59 Chlorhexidine Gluconate 3 pack 3 pack UNSCH PRN TOP 02/25/17 10:30 Fentanyl Citrate 250 ml @ 0 mls/hr TITRATE IV 02/25/17 10:30 (Zosyn 3.375 Gm Premix) 50 ml @ 100 mls/hr Q8H IV 02/25/17 12:00 02/25/17 13:23 Insulin Aspart 1 1 Q4H SQ 02/25/17 11:00 (Levophed-Dextrose Drip) 250 ml @ 0 mls/hr TITRATE IV 02/25/17 11:00 02/25/17 11:03 Terbutaline Sulfate 1 mg 1 mg UNSCH PRN SQ 02/25/17 11:00 Pantoprazole Sodium 80 mg/ Sodium Chloride 100 ml @ 10 mls/hr Q10H IV 02/25/17 12:00 Sodium Bicarbonate 75 meq/Sodium Chloride 1,075 ml @ 150 mls/hr Q7H10M IV 02/25/17 13:00 (Zithromax Inj/ NS 250 ml Inj) 250 ml @ 250 mls/hr Q24H IV 02/25/17 13:00 02/25/17 13:22 Rocuronium Hankamer 50 mg 50 mg BOLUS ONCE IV 02/25/17 14:00 02/25/17 14:01 02/25/17 13:23 Sodium Chloride 500 ml @ 30 mls/hr CONTINUOUS IV 02/25/17 13:15 (Neosynephrine Inj/D5W 500 ml Inj) 500 ml @ 0 mls/hr TITRATE IV 02/25/17 14:00 Terbutaline Sulfate 1 mg 1 mg UNSCH PRN SQ 02/25/17 13:15 (Sodium Chloride 23.4% Inj/Syringe/ Bag) 60 ml @ 120 mls/hr ONCE ONCE IV 02/25/17 13:30 02/25/17 13:59 Family History unable to obtain 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 (Charito Soares) Physical Exam Vital Signs Vital Signs Date Time Temp Pulse Resp B/P Pulse Ox O2 Delivery O2 Flow Rate FiO2 02/25/17 12:50 93 100 02/25/17 12:04 96 100 02/25/17 12:00 92 100 02/25/17 11:32 100.6 123 105/62 02/25/17 11:11 101.3 122 12 74/52 02/25/17 09:46 141 15 135/71 100 Ventilator 02/25/17 09:46 100 Ventilator 100 02/25/17 09:30 100 100 02/25/17 08:46 133 14 98 Ventilator 02/25/17 08:39 26 100 Non-Rebreather 15 02/25/17 08:38 100 Non-Rebreather 15 02/25/17 08:32 102.2 128 24 128/67 55 Physical Exam male intubated/sedated, appears younger than stated age He is unresponsive to pain, pupils pinpoint and equal; ventriculostomy top of head CV: S1/S2, tachycardic, no murmurs Lungs: clear in upper tang, diminished in bases, difficult to auscultate Abd: round, + OG tube with coffee ground emesis that has began to turn bloody : escobar in place, oliguric, urine pink/reddish, he has blood at the site of escobar insertion Ext: he does have edema Skin: intact Laboratory Laboratory Tests Test 02/25/17 02/25/17 02/25/17 02/25/17 09:00 09:10 10:20 11:06 White Blood Count 26.1 Red Blood Count 1.99 Hemoglobin 6.2 Bedside Hemoglobin 6.8 Hematocrit 18.1 Bedside Hematocrit 20.0 Mean Corpuscular Volume 91.2 Mean Corpuscular Hemoglobin 31.0 Mean Corpuscular Hemoglobin 34.0 Concent Red Cell Distribution Width 16.2 Platelet Count 28 Mean Platelet Volume 8.8 Neutrophils (%) (Auto) Lymphocytes (%) (Auto) Monocytes (%) (Auto) Eosinophils (%) (Auto) Basophils (%) (Auto) Neutrophils # (Auto) Lymphocytes # (Auto) Monocytes # (Auto) Eosinophils # (Auto) Basophils # (Auto) CBC Comment AUTO DIFF Differential Total Cells 100 Counted Neutrophils % (Manual) 36 Band Neutrophils % 18 Lymphocytes % 12 Monocytes % 22 Neutrophils # (Manual) 17.2 Metamyelocytes 5 Myelocytes 6 Promyelocytes 1 Differential Comment FINAL DIFF MANUAL Platelet Estimate RARE Platelet Morphology Comment NORMAL Ovalocytes 1+ Prothrombin Time 15.8 Prothromb Time International 1.4 Ratio Activated Partial 30.0 Thromboplast Time Bedside Sodium 130 Sodium Level 129 Bedside Potassium 5.0 Potassium Level 4.7 Bedside Chloride 98 Chloride Level 98 Carbon Dioxide Level 15.4 Anion Gap 16 Bedside Blood Urea Nitrogen 72 Blood Urea Nitrogen 64 Creatinine 4.31 Bedside Creatinine 3.9 Estimat Glomerular Filtration 13 Rate Bedside Glucose 328 Random Glucose 322 Calcium Level 8.4 Magnesium Level 1.8 Total Bilirubin 1.0 Aspartate Amino Transf 124 (AST/SGOT) Alanine Aminotransferase 102 (ALT/SGPT) Alkaline Phosphatase 65 Total Creatine Kinase 193 Creatine Kinase MB 3.6 Troponin I 1.31 Total Protein 6.7 Albumin 3.3 Lipase 50 Urine Color DARK-YELLOW Urine Turbidity CLOUDY Urine pH 5.0 Urine Specific [place] 1.017 Urine Protein 100 Urine Glucose (UA) 70 Urine Ketones NEG Urine Occult Blood LARGE Urine Nitrite NEG Urine Bilirubin NEG Urine Urobilinogen LESS THAN 2.0 Urine Leukocyte Esterase NEG Urine RBC 34 Urine WBC 14 Urine Squamous Epithelial 3 Cells Urine Amorphous Sediment FEW Urine Bacteria FEW Urine Granular Casts 7 Microscopic Urinalysis Comment CATH-CULTURE IND Lactic Acid Level 5.3 Ammonia 48 Blood Type O POSITIVE Antibody Screen NEGATIVE Crossmatch Leukocyte-Reduced Leukocyte-Reduced Red Blood Red Blood Cells Cells Blood Bank Comment Blood Gas Puncture Site LT RADIAL Blood Gas Patient Temperature 98.6 Blood Gas HCO3 16 Blood Gas Base Excess -12.0 Blood Gas Oxygen Saturation 94 Arterial Blood pH 7.13 Arterial Blood Partial 49 Pressure CO2 Arterial Blood Partial 116 Pressure O2 Arterial Blood Oxygen Content 7.3 Arterial Blood 1.1 Carboxyhemoglobin Arterial Blood Methemoglobin 1.4 Blood Gas Hemoglobin 5.3 Oxygen Delivery Device VENTILATOR Blood Gas Ventilator Setting A/C550/16/PEEP8 Blood Gas Inspired Oxygen 100 Test 02/25/17 02/25/17 02/25/17 11:42 12:53 12:55 Blood Bank Comment Blood Gas Puncture Site ART LINE Blood Gas Patient Temperature 98.6 Blood Gas HCO3 17 Blood Gas Base Excess -9.7 Blood Gas Oxygen Saturation 88 Arterial Blood pH 7.18 Arterial Blood Partial 48 Pressure CO2 Arterial Blood Partial 71 Pressure O2 Arterial Blood Oxygen Content 9.2 Arterial Blood 1.3 Carboxyhemoglobin Arterial Blood Methemoglobin 1.4 Blood Gas Hemoglobin 7.4 Oxygen Delivery Device VENTILATOR Blood Gas Ventilator Setting 600/18/PEEP8 Blood Gas Inspired Oxygen 100 Lactic Acid Level 3.5 Date/Time Procedure Status Source Growth 02/25/17 09:10 Urine Culture Received Urine Catheterized Urine Pending 02/25/17 09:10 Aerobic Blood Culture Received Blood Peripheral Pending 02/25/17 09:10 Anaerobic Blood Culture Received Blood Peripheral Pending (Charito Soares) Result Diagram: 02/25/17 0900 02/25/17 0900 Imaging Last [address] 02/25/17 0846 Signed Impressions: Service Date/Time: Saturday, February 25, 2017 09:29 - CONCLUSION: Left frontal subdural hematoma with mild midline shift. Atrophy. Mark Mendoza MD Chest X-Ray 02/25/17 0846 Signed Impressions: Service Date/Time: Saturday, February 25, 2017 08:56 - CONCLUSION: Endotracheal tube as above. aMrk Mendoza MD Chest X-Ray 02/25/17 0000 Signed Impressions: Service Date/Time: Saturday, February 25, 2017 11:00 - CONCLUSION: Left subclavian line as above. Mark Mendoza MD Chest CT 02/25/17 0000 Signed Impressions: Service Date/Time: Saturday, February 25, 2017 11:44 - CONCLUSION: Dense bibasilar lung consolidation. Scattered patchy airspace disease. Radiopaque material within the right lung base characteristic of possible aspiration . Endotracheal and nasogastric tubes are in good position. Derick Preciado MD (Charito Soares PROTOHISTORIAN) Assessment and Plan Problem List: (1) Acute renal failure Plan: In a patient who has a hx of CKD 3 per records baseline creatinine 1.2-1.3, GFR 50 VERITO likely due to renal hypoperfusion, hypotension, shock (septic, hypovolemic/ hemorrhagic) monitor electrolytes, replace/correct as needed his urine output is minimal, check urine electrolytes has proteinuria, quantify he is on multiple drips, has received over 5L of 0.9% NS in addition to what is ordered may need diuresis over next 24 hrs monitor I/O, weights, fluid volume status he has severe acidosis, bicarb gtt ordered (0.45% with 75mEq NaHC03) pressors to maintain MAP > 65mmHg avoid nephrotoxic substances if renal function worsens, he may require renal replacement therapy prognosis is guarded (2) Acute hypoxemic respiratory failure Plan: vent management per geospatial technician (3) Acute subdural hematoma Plan: s/p fall, neurosurgery following ICP monitor in place; it is measuring high; depending on clinical progress may need craniotomy in upcoming days (CPP goal 65-70) on 3% saline to assist with cerebral edema *target Na (serum )145-150 mg/dL FFP transfusion ordered (4) Septic shock Plan: lactic acid elevated, he is febrile with leukocytosis given vancomycin, on Zithromax and cefepime UTI: E coli CXR: bibasilar infiltrates ID to be consulted, monitor clinically (5) Myelodysplasia (myelodysplastic syndrome) Plan: severe, hematology/oncology following anemia: 2 units PRBC ordered, transfuse as needed *goal Hb > 8 thrombocytopenia: 3 units irradiated platelets ordered 2 units FFP *Goal platelets > 70K, although he usually runs 50-60K (6) UGIB (upper gastrointestinal bleed) Plan: GI has been consulted appreciate recommendations protonix gtt ordered (7) Type 2 diabetes mellitus Plan: hold Metformin, give insulin as ordered monitor glucose (8) Elevated troponin Plan: cardiology has evaluated recommend 2D echo, otherwise felt elevated troponin is due to renal insufficiency medical management (Charito Soares) Problem List: (1) Acute renal failure Plan: In a patient who has a hx of CKD 3 per records baseline creatinine 1.2-1.3, GFR 50 VERITO likely due to renal hypoperfusion, hypotension, shock (septic, hypovolemic/ hemorrhagic) monitor electrolytes, replace/correct as needed his urine output is minimal, check urine electrolytes has proteinuria, quantify he is on multiple drips, has received over 5L of 0.9% NS in addition to what is ordered may need diuresis over next 24 hrs monitor I/O, weights, fluid volume status he has severe acidosis, bicarb gtt ordered (0.45% with 75mEq NaHC03) pressors to maintain MAP > 65mmHg avoid nephrotoxic substances if renal function worsens, he may require renal replacement therapy prognosis is guarded (2) Acute hypoxemic respiratory failure Plan: vent management per geospatial technician (3) Acute subdural hematoma Plan: s/p fall, neurosurgery following ICP monitor in place; it is measuring high; depending on clinical progress may need craniotomy in upcoming days (CPP goal 65-70) on 3% saline to assist with cerebral edema *target Na (serum )145-150 mg/dL FFP transfusion ordered (4) Septic shock Plan: lactic acid elevated, he is febrile with leukocytosis given vancomycin, on Zithromax and cefepime UTI: E coli CXR: bibasilar infiltrates ID to be consulted, monitor clinically (5) Myelodysplasia (myelodysplastic syndrome) Plan: severe, hematology/oncology following anemia: 2 units PRBC ordered, transfuse as needed *goal Hb > 8 thrombocytopenia: 3 units irradiated platelets ordered 2 units FFP *Goal platelets > 70K, although he usually runs 50-60K (6) UGIB (upper gastrointestinal bleed) Plan: GI has been consulted appreciate recommendations protonix gtt ordered (7) Type 2 diabetes mellitus Plan: hold Metformin, give insulin as ordered monitor glucose (8) Elevated troponin Plan: cardiology has evaluated. recommend 2D echo, otherwise felt elevated troponin is due to renal insufficiency medical management Assessment and Plan patient was seen and examined. VERITO likely due to ATN from hypotension, hypoxia- reperfusion injury. Patient is oliguric. It may be necessary to initiate CRRT because of subdural bleed, hypotension, hemodynamic instability. (Jos Patel MD) Problem Qualifiers (1) Acute renal failure: Qualified Code: N17.9 - Acute renal failure, unspecified acute renal failure type (2) Type 2 diabetes mellitus: Charito SoaresP Feb 25, 2017 14:23 Jos Patel MD Feb 25, 2017 15:38
[2017-02-25] MEDS: INSULIN ASPART SUPPLEMENTAL SCALE SQ SCH ×3 (15:00→23:00)
[2017-02-25 15:01] LABS: BICARBONATE 22.7 MEQ/L (21.0-32.0); CALCIUM-PROTEIN CORRECTED 7.9 MG/DL (8.5-10.1); POTASSIUM 4.6 MEQ/L (3.5-5.1); TOTAL BILIRUBIN ADULT 1.8 MG/DL (0.2-1.0)
[2017-02-25] MEDS: RESP: ALBUTEROL 2.5 MG/IPRATROPIUM 0.5 MG NEB (SCH) NEB ×2 (15:01→21:09)
--- NOTE | 2017-02-25 15:08 | EC ---
Study Study Date:02/25/2017 STUDY CONCLUSIONS SUMMARY - Procedure narrative: Transthoracic echocardiography. Image quality was fair. Scanning was performed from the parasternal, apical, and subcostal acoustic windows. - Left ventricle: The cavity size was normal. Wall thickness was normal. Systolic function was normal. The estimated ejection fraction was in the range of 55% to 60%. Wall motion was normal; there were no regional wall motion abnormalities. - Aortic valve: Trileaflet; mild leaflet sclerosis. - Mitral valve: Trace regurgitation. - Tricuspid valve: Trace regurgitation. If LV function is below 40, please consider prescribing an ACEI or ARB or document rationale for non-use. PROCEDURE DATA STUDY STATUS: Elective. Procedure: Transthoracic echocardiography. Image quality was fair. Scanning was performed from the parasternal, apical, and subcostal acoustic windows. Study completion: The patient tolerated the procedure well. Transthoracic echocardiography. M-mode, complete 2D, complete spectral Doppler, and color Doppler. Patient status: Inpatient. CARDIAC ANATOMY LEFT VENTRICLE: The cavity size was normal. Wall thickness was normal. Systolic function was normal. The estimated ejection fraction was in the range of 55% to 60%. Wall motion was normal; there were no regional wall motion abnormalities. AORTIC VALVE: Trileaflet; mild leaflet sclerosis. Doppler: Transvalvular velocity was within the normal range. There was no stenosis. No regurgitation. AORTA: Aortic root: The aortic root was normal in size. MITRAL VALVE: Structurally normal valve. Doppler: Transvalvular velocity was within the normal range. There was no evidence for stenosis. Trace regurgitation. LEFT ATRIUM: The atrium was normal in size. RIGHT VENTRICLE: The cavity size was normal. Wall thickness was normal. PULMONIC VALVE: Doppler: Transvalvular velocity was within the normal range. There was no evidence for stenosis. No regurgitation. TRICUSPID VALVE: Structurally normal valve. Doppler: Transvalvular velocity was within the normal range. Trace regurgitation. PULMONARY ARTERY: The main pulmonary artery was normal-sized. Systolic pressure was within the normal range. RIGHT ATRIUM: The atrium was normal in size. PERICARDIUM: There was no pericardial effusion. SYSTEMIC VEINS: Inferior vena cava: The vessel was normal in size. BASIC MEASUREMENTS ADULT Normal Left ventricle LV internal dimension, ED, chordal level, *39.8 mm 43-52 PLAX LV internal dimension, ES, chordal level, 34.8 mm 23-38 PLAX Fractional shortening, chordal level, PLAX *13 % >29 LV posterior wall thickness, ED 8.83 mm IVS/LVPW ratio, ED *1.42 <1.3 Ventricular septum Septal thickness, ED 12.5 mm Aortic valve Leaflet separation 17 mm 15-26 Right ventricle RV internal dimension, ED, PLAX 31.7 mm 19-38 BASIC MEASUREMENTS ADULT Normal Aortic valve Leaflet separation 17 mm 15-26 Aorta Root diameter, ED *38 mm 20-37 Left atrium Anterior-posterior dimension, ES 27 mm 19-40 LA/aortic root ratio 0.71 DOPPLER MEASUREMENTS ADULT Normal Main pulmonary artery Pressure, S 30 mm Hg =30 Tricuspid valve Regurgitant peak velocity 317 cm/s Peak RV-RA gradient, S 40 mm Hg Maximal regurgitant velocity 317 cm/s Systemic veins Estimated CVP 10 mm Hg Right ventricle RV pressure, S *30 mm Hg <30 LEGEND: Mean values are shown as u=mean value. Asterisk (*) greco values outside specified normal range. Prepared and signed by Luiz Pang [id number]
[2017-02-25] MEDS: PANTOPRAZOLE INJ 80 MG in SODIUM CHLORIDE 0.9% INJ 100 ML IV SCH ×2 (16:09→22:35)
[2017-02-25 16:12] LABS: BLOOD GAS BASE EXCESS -9.5 mmol/L (-2-2); BLOOD GAS CARBOXYHEMOGLOBIN 1.4 % (0-4); BLOOD GAS HCO3 17 mmol/L (22-26); BLOOD GAS METHEMOGLOBIN 1.5 % (0-2); BLOOD GAS O2 HGB SATURATION 86 % (90-100); BLOOD GAS OXYGEN CONTENT 10.1 Vol % (12.0-20.0); BLOOD GAS PCO2 47 mmHg (38-42); BLOOD GAS PO2 64 mmHg (61-120); BLOOD GAS TOTAL HGB 8.3 G/DL (12.0-16.0); TEMP CORR TO 98.6
[2017-02-25 16:13] LABS: CRITICAL VALUE YES; DRAW SITE ART LINE; FIO2 100 %; OXYGEN DEVICE VENTILATOR; STAT NO; VENT SETTINGS 600/22/PEEP8
[2017-02-25 16:24] LABS: CREATININE RANDOM URINE LESS THAN 5 MG/DL (27-300)
[2017-02-25 16:42] LABS: AUTOMATED NEUTROPHIL # 41.4 TH/MM3 (1.8-7.7); BASOPHIL # 0.1 TH/MM3 (0-0.2); BASOPHIL % 0.2 % (0.0-2.0); EOSINOPHIL % 0.1 % (0.0-4.0); HEMATOCRIT 24.8 % (39.0-51.0); LYMPH % 0.9 % (9.0-44.0); LYMPHOCYTE # 0.5 TH/MM3 (1.0-4.8); MEAN CELL VOLUME 90.4 FL (80.0-100.0); MEAN CORPUSCULAR HEMOGLOBIN 30.3 PG (27.0-34.0); MEAN CORPUSCULAR HGB CONC 33.5 % (32.0-36.0); MONO % 17.4 % (0.0-8.0); NEUT % 81.4 % (16.0-70.0); PLATELET COUNT 63 TH/MM3 (150-450); RED BLOOD COUNT 2.75 MIL/MM3 (4.50-5.90); RED CELL DISTRIBUTION WIDTH 15.4 % (11.6-17.2); WHITE BLOOD COUNT 50.8 TH/MM3 (4.0-11.0)
[2017-02-25] MEDS ORDERED: HEPARIN SODIUM - SQ 10,000 UNITS/ML VIAL ONE (16:50)
[2017-02-25 16:55] LABS: MICROALBUMIN/CREAT RATIO RAND 52200 MG/G CRE (0-30)
[2017-02-25 17:01] LABS: MAGNESIUM 1.7 MG/DL (1.5-2.5)
--- NOTE | 2017-02-25 17:13 | PD.OP ---
Operative Report Date of Surgery: Feb 25, 2017 Preoperative Diagnosis: Traumatic brain injury with subdural hematoma Postoperative Diagnosis: Traumatic brain injury with subdural hematoma Procedure: Right frontal bur hole with placement of an intracranial pressure monitor. Anesthesia: local Surgeon: Burak Sanders Alteration Hand(s): NELSON Operation and Findings: INTRAOPERATIVE FINDINGS Intracranial pressures of 14 mmHg. INDICATIONS FOR THE PROCEDURE The patient is an adult male who was brought to [facility] with a severe traumatic brain injury CT of the brain showed a subdural hematoma with mild mass effect and midline shift Placement of ICP monitor was indicated as recommended by the [employer] [place] [employer] DETAILS OF THE SURGICAL PROCEDURE The right frontal area was shaved, prepped and draped in the usual sterile fashion. An entry point was selected behind the hairline, approximately 30 mm lateral to the midline. The incision was infiltrated with 1% lidocaine with epinephrine 1:100,000 dilution. A small incision was made with a 15 blade down to the level of the periosteum. Using a twist drill a soledad hole was made. The dura was opened with a blunt stylet, and a [place] bolt was secured to the bone. A fiberoptic transducer was calibrated according to the tube bender's instructions, and advanced into the parenchyma of the frontal lobe through the bolt. An intracranial pressure of 5 mmHg was achieved with a good waveform. A Betadine sterile dressing was applied. The patient tolerated the procedure well. There were no intraoperative complications. Blood loss was minimal. Burak Sanders MD Feb 25, 2017 17:13
[2017-02-25 17:19] LABS: HEMO FLAGS AUTO DIFF
[2017-02-25 17:24] LABS: BANDS 51 % (0-6); METAMYELOCYTES 9 % (0-1); MYELOCYTES 3 % (0-0); NEUTROPHIL # MANUAL DIFF 44.2 TH/MM3 (1.8-7.7); POLYS (SEG NEUTROPHILS) 23 % (16-70); PROMYELOCYTES 1 % (0-0); WBC DIFF SAMPLE 100
[2017-02-25 17:25] LABS: PLATELET ESTIMATE SMEAR LOW (NORMAL); PLATELET MORPHOLOGY NORMAL (NORMAL); SCAN/DIFF FINAL DIFF MANUAL
--- NOTE | 2017-02-25 17:47 | PD.PROCEDR ---
Central Line Procedure REASON FOR PROCEDURE Central venous access PROCEDURE PERFORMED Central line placement: LIJ HD catheter CONSENT Informed consent for procedure was obtained from family. The risks and benefits of the procedure were discussed to include but limited to bleeding, clot formation, infection, and even . ANESTHESIA Local injection of 1% Lidocaine DESCRIPTION OF THE PROCEDURE The patient was placed in supine, mild Trendelenburg position. The area was exposed and cleansed with ChloraPrep, times two. Large sterile drape was used to cover the patient, with the site exposed, under sterile conditions including cap, face mask, sterile gown, and sterile gloves. On single attempt, the introducer needle was inserted with negative pressure in syringe and venous flash was obtained. The guide wire was then advanced without any restriction and the needle was removed. The dilator was used without any complications. Using Seldinger technique the 14F 24CM HD catheter was advanced over the guide wire to a depth of 22 centimeters. The guide wire was removed. All ports were aspirated with dark venous blood return and flushed easily with sterile saline. All ports were capped. Antibiotic disc was placed around central line at puncture site. The central line was secured to the skin with two interrupted 2.0 silk sutures. The area was bandaged with sterile see-through central line bandage. RADIOLOGICAL DATA Ultrasound guidance was used to locate LIJ COMPLICATIONS: No apparent complications ESTIMATED BLOOD LOSS: Less than 1 cc. Trung Boyer MD Feb 25, 2017 17:46
[2017-02-25] MEDS ORDERED: HEPARIN IV 10,000 U/10 ML VIAL PRIMING IV PRN (18:00)
[2017-02-25] MEDS ORDERED: SODIUM CHLOR 0.45% 1000 ML INJ 1,000 ML IV PRN (18:00)
[2017-02-25] MEDS ORDERED: KCL/AQUEOUS SOLN Dialysate additive PRN (18:00)
--- NOTE | 2017-02-25 18:50 | RADRPT ---
EXAM DATE/TIME: 02/25/2017 18:07 [place] COMPARISON: CHEST SINGLE AP, February 25, 2017, 11:00. INDICATIONS : Central line placement. MEDICAL HISTORY : None. SURGICAL HISTORY : None. ENCOUNTER: Subsequent ACUITY: 3 days PAIN SCORE: Non-responsive. LOCATION: Bilateral chest FINDINGS: Endotracheal tube is present in satisfactory position with tip several centimeters above the hannah. A nasogastric tube is present with tip just reaching the fundus of the stomach. Right chest port is a gain noted. Left subclavian central line is stable. A new dialysis catheter is been introduced via th e left neck. The tip extends to the atrial caval junction level. There is no evidence of pneumothorax or other complication. Diffuse bilateral predominantly basilar alveolar opacities appear slightly wo rse than on the earlier exam. CONCLUSION: Satisfactory central catheter positioning. No complication. Worsening aeration. Merlin Morris MD on February 25, 2017 at 18:43 Board Certified Radiologist. This report was verified electronically.
[2017-02-25 18:58] LABS: BLOOD GAS BASE EXCESS -7.5 mmol/L (-2-2); BLOOD GAS CARBOXYHEMOGLOBIN 1.7 % (0-4); BLOOD GAS HCO3 18 mmol/L (22-26); BLOOD GAS METHEMOGLOBIN 1.4 % (0-2); BLOOD GAS O2 HGB SATURATION 82 % (90-100); BLOOD GAS PCO2 43 mmHg (38-42); BLOOD GAS PO2 52 mmHg (61-120); BLOOD GAS TOTAL HGB 9.5 G/DL (12.0-16.0); TEMP CORR TO 98.6
[2017-02-25 18:59] LABS: CRITICAL VALUE YES; DRAW SITE ART LINE; FIO2 100 %; OXYGEN DEVICE VENTILATOR; STAT NO; ULNAR PULSE NOT PRESENT; VENT SETTINGS 600/26/PEEP8
[2017-02-25] MEDS: CHLORHEXIDINE 0.12% (ORAL KIT) 15 ML CUP MT SCH (20:00)
[2017-02-25] MEDS: PHENYLEPHRINE INJ 40 MG in SODIUM CHLORID 0.9% 500 ML INJ 496 ML IV SCH (20:30)
[2017-02-25] MEDS: SODIUM BICARBONATE 8.4% SOLN 50 MEQ/50 ML VIAL PRN ×2 (20:51→21:51)
[2017-02-25] MEDS: SODIUM CHLORIDE 0.9% FLUSH 10 ML FLUSH IV FLUSH SCH (20:52)
[2017-02-25 21:55] LABS: BLOOD GAS BASE EXCESS -3.3 mmol/L (-2-2); BLOOD GAS CARBOXYHEMOGLOBIN 1.5 % (0-4); BLOOD GAS HCO3 22 mmol/L (22-26); BLOOD GAS METHEMOGLOBIN 1.3 % (0-2); BLOOD GAS O2 HGB SATURATION 83 % (90-100); BLOOD GAS OXYGEN CONTENT 11.4 Vol % (12.0-20.0); BLOOD GAS PCO2 48 mmHg (38-42); BLOOD GAS PO2 53 mmHg (61-120); BLOOD GAS TOTAL HGB 9.8 G/DL (12.0-16.0); CRITICAL VALUE YES; OXYGEN DEVICE VENTILATOR; TEMP CORR TO 98.6
[2017-02-25 21:56] LABS: DRAW SITE ART LINE; FIO2 100 %; STAT NO; ULNAR PULSE Y; VENT SETTINGS PRVC20/600/0.65/+10
[2017-02-25] MEDS: NOREPINEPHRINE INJ 4 MG in SODIUM CHLOR 0.9% 250 ML INJ 246 ML IV SCH (22:34)
[2017-02-26] VITALS (11 sets, daily range): BP systolic 81–138; BP diastolic 52–77; PULSE 96–141; RESP 20; TEMP 97.8–100; O2SAT 82–100
[2017-02-26] MEDS: NOREPINEPHRINE INJ 4 MG in SODIUM CHLOR 0.9% 250 ML INJ 246 ML IV SCH ×6 (01:04→16:34)
[2017-02-26] MEDS: DOBUTamine INJ 250 MG in SODIUM CHLOR 0.9% 250 ML INJ 230 ML IV SCH ×2 (01:07→08:41)
[2017-02-26] MEDS: MIDAZOLAM 100 MG/ML INJ 100 ML IV SCH (02:02)
[2017-02-26] MEDS: INSULIN ASPART SUPPLEMENTAL SCALE SQ SCH ×4 (03:00→15:00)
[2017-02-26] MEDS ORDERED: CHLORHEXIDINE GLUCONATE 2 % 1 PACK (2 CLOTHS) TOP SCH (04:00)
[2017-02-26] MEDS: RESP: ALBUTEROL 2.5 MG/IPRATROPIUM 0.5 MG NEB (SCH) NEB ×4 (04:20→21:00)
[2017-02-26] MEDS: PIPERACIL-TAZO 3.375 GM PREMIX 50 ML IV SCH (05:11)
[2017-02-26 05:26] LABS: CALCIUM-PROTEIN CORRECTED 7.6 MG/DL (8.5-10.1); POTASSIUM 4.3 MEQ/L (3.5-5.1)
[2017-02-26] MEDS ORDERED: PHENYLEPHRINE HCL 10 MG/ML VIAL ONE (06:18)
[2017-02-26] MEDS: PHENYLEPHRINE INJ 40 MG in SODIUM CHLORID 0.9% 500 ML INJ 496 ML IV SCH ×3 (06:35→14:16)
--- NOTE | 2017-02-26 06:44 | HHI.CCPN ---
Subjective Remarks/Hospital Course The patient is a 76-year-old male with history of Myelodysplastic syndrome, type 2 DM, hypertension who presented to the emergency department via EMS for altered mental status. He had a fall yesterday, striking the left aspect of his head, was seen by his primary physician yesterday. Decreasing mental status throughout the night, and EMS was called today am. EMS found patient hypoxic when they arrived, O2 saturation on room air of 72%. In the ER was disoriented and appears confused. He was tachycardic with a heart rate in the 120s and respiratory rate in the 40s. His initial O2 saturation in ER was 52%, with nonrebreather came up to 90s. Rapid sequence intubation performed by Dr. De La Rosa as patient remained hypoxic, confused. After Blood culture was drawn patient was given cefepime and Zithromax. Pertinent labs Na 130, potassium 5.0, BUN/creat 64/4.3, glucose 328, hemoglobin 6.8, and platelet count of 28,000. NG tube placed with coffee ground emesis. A Stat CT the brain reveals a left subdural hemorrhage 9 mm with mild [id number] shift of 2.6 mm. The patient's platelets were low at 28, I have ordered 3 U irradiated platelets and 2U PRBC, 1U FFP. N/S Dr. Sanders was consulted, as well as oncology , GI and nephrology. Patient had a fever of 102.2 and CXR showed bilateral basilar infiltrates. His WBC count was 26,000 (has MDS)and fever of 102.2 I evaluated patient in ED. intubated sedated with Versed, remains unresponsive. Patient became hypotensive despite NS bolus. I placed a left subclavian central line and ordered additional 2L NS bolus and 2U PRBC. Levophed started to keep MAP>70. family is not at bedside but prognosis is guarded. Patient is admitted to [facility] with shock (multifactorial, predominantly septic) and acute L SDH with encephalopathy and resp failure Subjective 02/26: Patient seen and examined. Remains on multiple vasopressors for CPP support. Transfused 3 FFP, 2 PRBC and 3 pack platelets since admission. Saturations now 100%. Sedated on the ventilator. Continues to have blood from OG-tube. Ventilator just due to prostatic and overnight. Dobutamine added due to low cardiac index with adequate preload. Objective Vital Signs Date Time Temp Pulse Resp B/P Pulse Ox O2 Delivery O2 Flow Rate FiO2 02/26/17 04:25 96 100 02/26/17 00:00 98.1 117 20 81/59 02/25/17 19:00 Mechanical Ventilator 02/25/17 08:39 15 Intake and Output 02/25/17 02/25/17 02/26/17 08:00 16:00 00:00 Intake Total 2285 ml 4670 ml Output Total 80 ml 0 ml Balance 2205 ml 4670 ml Result Diagram: 02/25/17 1615 02/26/17 0420 Other Results Microbiology Date/Time Procedure Status Source Growth 02/25/17 14:35 Gram Stain Received Sputum Endotracheal Pending 02/25/17 14:35 Sputum Culture Received Sputum Endotracheal Pending 02/25/17 09:10 Urine Culture Received Urine Catheterized Urine Pending 02/25/17 09:10 Aerobic Blood Culture Received Blood Peripheral Pending 02/25/17 09:10 Anaerobic Blood Culture Received Blood Peripheral Pending Imaging Last Impressions Head CT 02/25/17 0846 Signed Impressions: Service Date/Time: Saturday, February 25, 2017 09:29 - CONCLUSION: Left frontal subdural hematoma with mild midline shift. Atrophy. Mark Mendoza MD Chest X-Ray 02/25/17 0846 Signed Impressions: Service Date/Time: Saturday, February 25, 2017 08:56 - CONCLUSION: Endotracheal tube as above. Mark Mendoza MD Chest CT 02/25/17 0000 Signed Impressions: Service Date/Time: Saturday, February 25, 2017 11:44 - CONCLUSION: Dense bibasilar lung consolidation. Scattered patchy airspace disease. Radiopaque material within the right lung base characteristic of possible aspiration . Endotracheal and nasogastric tubes are in good position. Derick Preciado MD Objective Remarks GENERAL: 76 year old male, critically ill currently resting in bed SKIN: Skin assessment warm/dry. No rash or petechiae HEAD: Hematoma with superficial abrasion and ecchymosis over the left frontal temporal area. EYES: Pupils equal and round. Pupils are 1-2 mm bilateral, minimally reactive to light ENT: No nasal bleeding or discharge. Moderately moist mucous membranes. OG tube in place NECK: Trachea midline. No JVD. CARDIOVASCULAR: Tachycardia, RR. S1, S2. No S4. Without murmur RESPIRATORY: Diminished breath sounds throughout lung tang. Few crackles patient bases bilateral. No wheezing GASTROINTESTINAL: Abdomen soft, nontender. (Rectal exam by ED: No gross blood. Guaiac positive.) Hypoactive bowel sounds are appreciated NEUROLOGICAL: Pupils are reactive. Positive corneal reflex. Minimal gag. Unable to withdraw to pain to noxious stimuli in bilateral upper and lower extremities on my examination. A/P Assessment and Plan NEURO/PSYCH : Acute left frontal subdural hemorrhage Acute encephalopathy Patient is currently in Versed 2.5 mg an hour/fentanyl drip at 200 's an hour for sedation/analgesia while intubated Goal of RASS of -3 to -4 No sedation vacation until okay with neurosurgery CT head 02/25 revealed acute left frontal subdural hematoma/9 mm with a left-to- right shift to 2.[address] this a.m. pending -Altered mentation secondary to acute left subdural hemorrhage and metabolic encephalopathy from sepsis -Neurosurgery Dr. Sanders consulted. Status post placement of a right soledad hole/ICP monitor by Dr. Sanders -3 units of platelets being transfused to keep platelet count above 60,000-70k -Correct hyponatremia, target sodium 145-150. avoid hypoxia hypercarbia -Target CPP 65-70 after ICP monitor placement with vasopressors. -3% Saline at 30 ml per hour Every 6 hours sodium/serum osm Keppra 500 twice a day 7 days seizure prophylaxis RESP: Acute hypoxemic respiratory failure Bilateral community-acquired pneumonia PRVC 20/600/1/10/100 Ventilator bundle Duo nebs every 6 hours and albuterol nebs for breakthrough every 2 hours when necessary -CT chest 02/25 dense bibasilar consolidation -Nebs every 6 hours and when necessary -Follow-up a.m. chest x-ray/ABG CV: Shock multifactorial. (Predominantly septic and hypovolemic/hemorrhagic) Elevated troponin Lactic acidosis Dyslipidemia History of hypertension -2d echo revealed EF 55-60%. No regional wall motion abnormality. Trace TR/MR. Seen by Dr. Pang/cardiology. No plans for further cardiac evaluation at this time. Cardiac index 2.6. SVV 23 -Levophed currently at 24 g per minute and Cristiano-Synephrine at 65 g a minute to keep map above 65 Added Dobutrex overnight at 6 mics grams per kilogram per minute - follow-up VBG this a.m. -Trend lactic acid last one 6.5 documented Holding pravastatin 20 mg daily/home medication light of elevated transaminases Holding benazepril 5 mg by mouth daily 6 for hypertension/home medication light of hypotension/acute kidney injury GI: Upper GI bleed Transaminitis - likely secondary to shock -IV Protonix 80 mg 1 given yesterday and 8 mg per hour -GI consult/Dr. Thomas - endoscopy when clinically stable -Keep nothing by mouth, correct coagulopathy - Serial hemoglobins -Check CPK/hepatitis panel and liver ultrasound. Recheck hepatic profile in a.m. : BPH/history of TURP Holding Proscar 5 mill grams daily/trazodone 10 mg by mouth daily light of hypotension/acute kidney injury Maintain Schafer for accurate I's and O's in a critically ill patient RENAL: Acute on CKD CRRT currently on standby due to clotting of mechanism -Nephrology consulted/Dr. Patel - currently on renal replacement -Follow-up on BMP/magnesium phosphorus in a.m. Check renal ultrasound today/urologic lites and eosinophils ID: Septic shock Bilateral basilar pneumonia -IV vancomycin x1 yesterday 1 g. Placed on Zosyn CRRT dosage 3.375 every 8 ( 2.25 every 6 equivalent) and azithromycin day #2 Pertinent cultures /14 - urine - pending / - sputum - pending 02/25 - blood cultures 2 - pending Infectious disease consult in light of complicated history for antibiotic recommendations. HEME: Macrocytic Anemia Thrombocytopenia History of MDS/MPN Leukocytosis -Transfuse blood products to keep hemoglobin more than 8, platelet, than 60,000 , INR less than 1.3 -Patient has received 3 pack units of irradiated platelets, 2 units of PRBC, and 3 unit of FFP -Hematology oncology Dr. Louis consulted. Appreciate recommendations ENDO: Type 2 diabetes -Electrolyte replacement as needed, sliding scale insulin. Low regimen every 4 hours. 7 units sliding scale past 24 hours Holding metformin 1000 mg twice a day in light of acute kidney injury FEN Hypernatremia On 3% saline at 30 cc an hour. Serial sodiums every 6 hours goal 145-150 Replace electrolytes as clinically indicated Holding home medications biotin/B12 and D. Resume if clinically indicated MSK: Range of motion for now PROPH: -Bilateral lower extremity SCDs. Pharmacological prophylaxis is with GI bleed/ subdural hematoma. Protonix infusion at 8 mg an hour for GI prophylaxis LINES: -Left subclavian central line placed 02/25/17. Right radial Arterial line 02/25 Left IJ hemodialysis catheter 02/[address] chest port in [address] Critical Care: The total critical care time was 55 minutes. Time to perform other separately billable procedures was not included in the critical care time. Discussed with . Current condition and care discussed at length. discussion with her family wish withdrawal care. Articles B and C and been signed by myself and Dr. Sanders.. See ventilator withdrawal protocol orders. Landen Jaquez MD Feb 26, 2017 06:44
[2017-02-26] MEDS ORDERED: CALCIUM GLUCONATE INJ 1 GM in SODIUM CHLORIDE 0.9% INJ 100 ML IV ONE (07:00)
[2017-02-26] MEDS ORDERED: RESP: ALBUTEROL 2.5 MG/3 ML NEB (PRN) INH (08:00)
[2017-02-26] MEDS: CHLORHEXIDINE 0.12% (ORAL KIT) 15 ML CUP MT SCH (08:00)
[2017-02-26] MEDS: SODIUM BICARBONATE 8.4% SOLN 50 MEQ/50 ML VIAL PRN ×5 (08:15→16:25)
[2017-02-26 08:19] LABS: INTERNATIONAL NORMALIZED RATIO 1.5 RATIO; PROTHROMBIN TIME - PATIENT 16.3 SEC (9.8-11.6)
[2017-02-26 08:22] LABS: MAGNESIUM 1.5 MG/DL (1.5-2.5)
[2017-02-26 08:40] LABS: BLOOD GAS BASE EXCESS -2.4 mmol/L (-2-2); BLOOD GAS CARBOXYHEMOGLOBIN 1.1 % (0-4); BLOOD GAS HCO3 23 mmol/L (22-26); BLOOD GAS METHEMOGLOBIN 1.1 % (0-2); BLOOD GAS O2 HGB SATURATION 96 % (90-100); BLOOD GAS OXYGEN CONTENT 14.3 Vol % (12.0-20.0); BLOOD GAS PCO2 44 mmHg (38-42); BLOOD GAS PO2 115 mmHg (61-120); BLOOD GAS TOTAL HGB 10.5 G/DL (12.0-16.0); CRITICAL VALUE NO; OXYGEN DEVICE VENTILATOR
[2017-02-26 08:41] LABS: DRAW SITE ART LINE; NUMBER OF ARTERIAL PUNCTURES 0; STAT NO; TEMP CORR TO 100; ULNAR PULSE PRESENT; VENT SETTINGS PRVC/AC
[2017-02-26] MEDS: SODIUM CHLORIDE 0.9% FLUSH 10 ML FLUSH IV FLUSH SCH (09:00)
[2017-02-26] MEDS ORDERED: PANTOPRAZOLE SODIUM 40 MG VIAL IV SCH (09:00)
[2017-02-26] MEDS ORDERED: levETIRAcetam INJ 500 MG in SODIUM CHLORIDE 0.9% INJ 100 ML IV SCH (09:00)
[2017-02-26] MEDS: PANTOPRAZOLE INJ 80 MG in SODIUM CHLORIDE 0.9% INJ 100 ML IV SCH ×2 (09:09→11:49)
--- NOTE | 2017-02-26 10:34 | PD.CARD.PN ---
Subjective Subjective Remarks Intubated. Sedated. Objective Medications Item Value Date Time Dobutamine HCl 250 ml @ 12 mls/hr 02/26/17 0100 250 mg/Sodium [id number]/IV 02/26/17 0841 Chloride Norepinephrine 250 ml @ 0 mls/hr 02/25/17 1527 Bitartrate 4 mg/ TITRATE/IV 02/26/17 0104 Sodium Chloride Phenylephrine HCl 500 ml @ 0 mls/hr 02/25/17 1400 40 mg/Sodium TITRATE/IV 02/26/17 0635 Chloride Vital Signs / I&O Vital Signs Date Time Temp Pulse Resp B/P Pulse Ox O2 Delivery O2 Flow Rate FiO2 02/26/17 08:45 100 100 02/26/17 08:00 100 02/26/17 08:00 97.8 121 20 108/58 100 Automatic Cuff 02/26/17 08:00 121 02/26/17 04:25 96 100 02/26/17 04:00 100 02/26/17 04:00 99.7 117 20 98 112/64 02/26/17 00:15 99 100 02/26/17 00:00 100 02/26/17 00:00 98.1 117 20 98 81/59 02/25/17 23:00 116 02/25/17 21:10 89 100 02/25/17 20:00 100 02/25/17 20:00 99.1 112 26 90 92/57 02/25/17 19:00 91 Mechanical Ventilator 100 02/25/17 16:00 100.2 119 22 106/60 91 105/54 02/25/17 16:00 100 02/25/17 15:00 123 02/25/17 14:10 99 100 02/25/17 12:50 93 100 02/25/17 12:04 96 100 02/25/17 12:00 100 02/25/17 12:00 100.9 126 29 105/62 94 02/25/17 12:00 92 100 02/25/17 11:32 100.6 123 105/62 02/25/17 11:14 99 100 02/25/17 11:11 101.3 122 12 74/52 02/25/17 11:05 99 100 I/O 02/25/17 02/25/17 02/25/17 02/26/17 02/26/1702/26/17 07:00 15:00 23:00 07:00 15:00 23:00 Intake Total 2285 ml 4670 ml Output Total 80 ml 0 ml Balance 2205 ml 4670 ml Intake Oral 0 ml 0 ml IV Total 2385 ml Packed Cells 1250 ml 1250 ml FFP 206 ml 206 ml Platelets 829 ml 829 ml Output Urine Total 30 ml 0 ml Gastric Drainage Total 50 ml 0 ml # Bowel Movements 0 0 Physical Exam GENERAL: Well developed, well nourished. Intubated. Sedated. HEENT: Jugular venous pressure is normal. CHEST: Lungs clear to auscultation anteriorly. CARDIAC: Regular rate and rhythm without S3, S4, or murmur. ABDOMEN: Soft. Bowel sounds absent. EXTREMITIES: No clubbing, cyanosis, or edema. Laboratory Laboratory Tests Test 02/25/17 02/25/17 02/25/17 02/25/17 11:06 11:42 12:00 12:53 Blood Gas Puncture Site LT RADIAL ART LINE Blood Gas Patient Temperature 98.6 98.6 Blood Gas HCO3 16 mmol/L 17 mmol/L Blood Gas Base Excess -12.0 mmol/L -9.7 mmol/L Blood Gas Oxygen Saturation 94 % 88 % Arterial Blood pH 7.13 7.18 Arterial Blood Partial 49 mmHg 48 mmHg Pressure CO2 Arterial Blood Partial 116 mmHG 71 mmHg Pressure O2 Arterial Blood Oxygen Content 7.3 Vol % 9.2 Vol % Arterial Blood 1.1 % 1.3 % Carboxyhemoglobin Arterial Blood Methemoglobin 1.4 % 1.4 % Blood Gas Hemoglobin 5.3 G/DL 7.4 G/DL Oxygen Delivery Device VENTILATOR VENTILATOR Blood Gas Ventilator Setting A/C550/16/PEEP8 600/18/PEEP8 Blood Gas Inspired Oxygen 100 % 100 % Blood Bank Comment Nasal Screen MRSA (PCR) NEGATIVE Test 02/25/17 02/25/17 02/25/17 02/25/17 12:55 14:04 14:20 14:35 Lactic Acid Level 3.5 mmol/L Blood Gas Puncture Site ART LINE Blood Gas Patient Temperature 98.6 Blood Gas HCO3 19 mmol/L Blood Gas Base Excess -6.7 mmol/L Blood Gas Oxygen Saturation 93 % Arterial Blood pH 7.24 Arterial Blood Partial 48 mmHg Pressure CO2 Arterial Blood Partial 86 mmHg Pressure O2 Arterial Blood Oxygen Content 10.5 Vol % Arterial Blood 1.2 % Carboxyhemoglobin Arterial Blood Methemoglobin 1.3 % Blood Gas Hemoglobin 7.9 G/DL Oxygen Delivery Device VENTILATOR Blood Gas Ventilator Setting 600/20/PEEP8 Blood Gas Inspired Oxygen 100 % Sodium Level 144 MEQ/L Potassium Level 4.6 MEQ/L Chloride Level 109 MEQ/L Carbon Dioxide Level 22.7 MEQ/L Anion Gap 12 MEQ/L Blood Urea Nitrogen 62 MG/DL Creatinine 4.05 MG/DL Estimat Glomerular Filtration 14 ML/MIN Rate Random Glucose 307 MG/DL Serum Osmolality 334 MOSM/KG Calcium Level 6.9 MG/DL Protein Corrected Calcium 7.9 MG/DL Total Bilirubin 1.8 MG/DL Aspartate Amino Transf 104 U/L (AST/SGOT) Alanine Aminotransferase 84 U/L (ALT/SGPT) Alkaline Phosphatase 55 U/L Total Protein 5.2 GM/DL Albumin 2.6 GM/DL Urine Random Creatinine LESS THAN 5.0 MG/DL Urine Random Sodium 148 MEQ/L Urine Microalbumin/Creatinine 83392 MG/G CRE Ratio Test 02/25/17 02/25/17 02/25/17 02/25/17 16:02 16:15 18:48 20:15 Blood Gas Puncture Site ART LINE ART LINE Blood Gas Patient Temperature 98.6 98.6 Blood Gas HCO3 17 mmol/L 18 mmol/L Blood Gas Base Excess -9.5 mmol/L -7.5 mmol/L Blood Gas Oxygen Saturation 86 % 82 % Arterial Blood pH 7.19 7.25 Arterial Blood Partial 47 mmHg 43 mmHg Pressure CO2 Arterial Blood Partial 64 mmHg 52 mmHg Pressure O2 Arterial Blood Oxygen Content 10.1 Vol % 11.0 Vol % Arterial Blood 1.4 % 1.7 % Carboxyhemoglobin Arterial Blood Methemoglobin 1.5 % 1.4 % Blood Gas Hemoglobin 8.3 G/DL 9.5 G/DL Oxygen Delivery Device VENTILATOR VENTILATOR Blood Gas Ventilator Setting 600/22/PEEP8 600/26/PEEP8 Blood Gas Inspired Oxygen 100 % 100 % White Blood Count 50.8 TH/MM3 Red Blood Count 2.75 MIL/MM3 Hemoglobin 8.3 GM/DL Hematocrit 24.8 % Mean Corpuscular Volume 90.4 FL Mean Corpuscular Hemoglobin 30.3 PG Mean Corpuscular Hemoglobin 33.5 % Concent Red Cell Distribution Width 15.4 % Platelet Count 63 TH/MM3 Mean Platelet Volume 8.6 FL Neutrophils (%) (Auto) 81.4 % Lymphocytes (%) (Auto) 0.9 % Monocytes (%) (Auto) 17.4 % Eosinophils (%) (Auto) 0.1 % Basophils (%) (Auto) 0.2 % Neutrophils # (Auto) 41.4 TH/MM3 Lymphocytes # (Auto) 0.5 TH/MM3 Monocytes # (Auto) 8.8 TH/MM3 Eosinophils # (Auto) 0.0 TH/MM3 Basophils # (Auto) 0.1 TH/MM3 CBC Comment AUTO DIFF Differential Total Cells 100 Counted Neutrophils % (Manual) 23 % Band Neutrophils % 51 % Lymphocytes % 3 % Monocytes % 10 % Neutrophils # (Manual) 44.2 TH/MM3 Metamyelocytes 9 % Myelocytes 3 % Promyelocytes 1 % Differential Comment FINAL DIFF MANUAL Platelet Estimate LOW Platelet Morphology Comment NORMAL Lactic Acid Level 6.0 mmol/L Magnesium Level 1.7 MG/DL Troponin I 4.42 NG/ML Serum Osmolality 323 MOSM/KG Test 02/25/17 02/25/17 02/26/17 02/26/17 21:42 23:50 01:50 04:20 Blood Gas Puncture Site ART LINE Blood Gas Patient Temperature 98.6 Blood Gas HCO3 22 mmol/L Blood Gas Base Excess -3.3 mmol/L Blood Gas Oxygen Saturation 83 % Arterial Blood pH 7.29 Arterial Blood Partial 48 mmHg Pressure CO2 Arterial Blood Partial 53 mmHg Pressure O2 Arterial Blood Oxygen Content 11.4 Vol % Arterial Blood 1.5 % Carboxyhemoglobin Arterial Blood Methemoglobin 1.3 % Blood Gas Hemoglobin 9.8 G/DL Oxygen Delivery Device VENTILATOR Blood Gas Ventilator Setting PRVC20/600/0.65/+10 Blood Gas Inspired Oxygen 100 % Blood Bank Comment Sodium Level 145 MEQ/L 146 MEQ/L Serum Osmolality 321 MOSM/KG 322 MOSM/KG Potassium Level 4.3 MEQ/L Chloride Level 108 MEQ/L Carbon Dioxide Level 25.0 MEQ/L Anion Gap 13 MEQ/L Blood Urea Nitrogen 63 MG/DL Creatinine 4.00 MG/DL Estimat Glomerular Filtration 15 ML/MIN Rate Random Glucose 173 MG/DL Calcium Level 6.6 MG/DL Protein Corrected Calcium 7.6 MG/DL Phosphorus Level 5.0 MG/DL Magnesium Level 1.5 MG/DL Total Bilirubin 3.0 MG/DL Aspartate Amino Transf 319 U/L (AST/SGOT) Alanine Aminotransferase 215 U/L (ALT/SGPT) Alkaline Phosphatase 50 U/L Total Creatine Kinase 189 U/L Total Protein 5.1 GM/DL Albumin 2.4 GM/DL Test 02/26/17 02/26/17 07:45 08:30 Prothrombin Time 16.3 SEC Prothromb Time International 1.5 RATIO Ratio Activated Partial 31.0 SEC Thromboplast Time Fibrinogen 275 mg/dL Lactic Acid Level 3.6 mmol/L Blood Gas Puncture Site ART LINE Blood Gas Patient Temperature 100 Blood Gas HCO3 23 mmol/L Blood Gas Base Excess -2.4 mmol/L Blood Gas Oxygen Saturation 96 % Arterial Blood pH 7.33 Arterial Blood Partial 44 mmHg Pressure CO2 Arterial Blood Partial 115 mmHg Pressure O2 Arterial Blood Oxygen Content 14.3 Vol % Arterial Blood 1.1 % Carboxyhemoglobin Arterial Blood Methemoglobin 1.1 % Blood Gas Hemoglobin 10.5 G/DL Oxygen Delivery Device VENTILATOR Blood Gas Ventilator Setting PRVC/AC Assessment and Plan Problem List: (1) Elevated troponin Assessment and Plan: Overall doubt troponin level increase due to ACS. No other evidence for acute myocardial ischemia or infarction. CK's negative for IN. EKG with no acute ST/T changes. Echo shows normal LV function with no major valvular abnormalities. Rec no additional cardiac w/u at this time. Code Status No Code Luiz Pang MD Feb 26, 2017 10:34
--- NOTE | 2017-02-26 11:51 | HHI.NSPN ---
Note Status Status: Progress Note Interval History Diagnosis Trauma Interval History This is a 76-year-old male with history of Myelodysplastic syndrome, type 2 DM, hypertension who presented to the emergency department with altered mental status. He apparently had a fall yesterday, striking the left aspect of his head. He was seen by his primary physician yesterday. He had decreasing mental status throughout the night, and EMS was called this morning. No seizure asctivity noted. No tongue bitting. No incontinence of stool or urine. EMS found GCS of 14, patient hypoxic with O2 saturation on room air of 72%. He was disoriented and appears confused. He was tachycardic with a heart rate in the 120s and respiratory rate in the 40s. His initial O2 saturation in ER was 52%, with nonrebreather came up to 90s. Rapid sequence intubation performed by Dr. De La Rosa as he remained hypoxic, confused. After Blood culture was drawn he was given cefepime and Zithromax. He had a fever of 102.2 and CXR showed bilateral basilar infiltrates. His WBC count was 26,000 (has MDS)and fever of 102.[address] the brain reveals a left subdural hemorrhage 9 mm with mild left-to- right shift of 2.6 mm. The patient's platelets were low at 28, I have ordered 3 U irradiated platelets and 2U PRBC, 1U FFP. Neurosurgery consultation was requested. 03/28. No neurological changes. Intubated and deeply sedated. Pulmonary function deteriorating Labs, Micro, & Vital Signs Results Date Time Temp Pulse Resp B/P Pulse Ox O2 Delivery O2 Flow Rate FiO2 02/26/17 08:45 100 100 02/26/17 08:00 100 02/26/17 08:00 97.8 121 20 108/58 100 Automatic Cuff 02/26/17 08:00 121 02/26/17 04:25 96 100 02/26/17 04:00 100 02/26/17 04:00 99.7 117 20 98 112/64 02/26/17 00:15 99 100 02/26/17 00:00 100 02/26/17 00:00 98.1 117 20 98 81/59 02/25/17 23:00 116 02/25/17 21:10 89 100 02/25/17 20:00 100 02/25/17 20:00 99.1 112 26 90 92/57 02/25/17 19:00 91 Mechanical Ventilator 100 02/25/17 16:00 100.2 119 22 106/60 91 105/54 02/25/17 16:00 100 02/25/17 15:00 123 02/25/17 14:10 99 100 02/25/17 12:50 93 100 02/25/17 12:04 96 100 02/25/17 12:00 100 02/25/17 12:00 100.9 126 29 105/62 94 02/25/17 12:00 92 100 02/26/17 07:00 Intake Total 6955 ml Output Total 80 ml Balance 6875 ml Constitutional Vital Signs Date Time Temp Pulse Resp B/P Pulse Ox O2 Delivery O2 Flow Rate FiO2 02/26/17 08:45 100 100 02/26/17 08:00 100 02/26/17 08:00 97.8 121 20 108/58 100 Automatic Cuff 02/26/17 08:00 121 02/26/17 04:25 96 100 02/26/17 04:00 100 02/26/17 04:00 99.7 117 20 98 112/64 02/26/17 00:15 99 100 02/26/17 00:00 100 02/26/17 00:00 98.1 117 20 98 81/59 02/25/17 23:00 116 02/25/17 21:10 89 100 02/25/17 20:00 100 02/25/17 20:00 99.1 112 26 90 92/57 02/25/17 19:00 91 Mechanical Ventilator 100 02/25/17 16:00 100.2 119 22 106/60 91 105/54 02/25/17 16:00 100 02/25/17 15:00 123 02/25/17 14:10 99 100 02/25/17 12:50 93 100 02/25/17 12:04 96 100 02/25/17 12:00 100 02/25/17 12:00 100.9 126 29 105/62 94 02/25/17 12:00 92 100 02/26/17 07:00 Intake Total 6955 ml Output Total 80 ml Balance 6875 ml Review of Systems/Exam Exam Mr Dior is intubated and sedated. Hematoma with superficial abrasion and ecchymosis over the left frontal temporal area. No response to pain. ICP monitor in place Cranial Nerves: Pupils equal, round, reactive to light. Eyes appear conjugated. There was no nystagmus, no papilledema. Face musculature appeared symmetrical at rest. Face sensation, olfaction, visual tang, and hearing cannot be adequately assessed due to his neurological condition. The patient has a corneal reflex. He has a gag reflex. The sternocleidomastoid and trapezius are symmetrical. Cervical Spine: His neck is soft, supple, without nuchal rigidity. Motor: His muscle tone and bulk are normal. No response to pain Reflexes: Deep tendon reflexes are 1+ and symmetrical in the biceps, triceps, and brachioradialis, bilaterally, in the upper extremities. In the lower extremities, the patellar and ankles are 1+, bilaterally. There is a bilateral plantar flexion response. There is no clonus or other abnormal reflexes noted. Sensory: On examination there is no response to painful stimuli Cerebellar: Examination cannot be adequately assessed due to the patient's neurological condition. Medications Current Medications Current Medications Etomidate (Amidate Inj) 20 mg STK-MED ONCE .ROUTE ; Start 02/25/17 at 08:37; Stop 02/25/17 at 08:38; Status DC Rocuronium [place] (Zemuron Inj) 50 mg STK-MED ONCE .ROUTE ; Start 02/25/17 at 08:37; Stop 02/25/17 at 08:38; Status DC Acetaminophen 650 mg 650 mg ONCE ONCE RECTAL Last administered on 02/25/17t 09 :59; Start 02/25/17 at 09:00; Stop 02/25/17 at 09:01; Status DC Cefepime HCl 2000 mg/Sodium Chloride 100 ml @ 200 mls/hr ONCE STAT IV ; Start 02/25/17 at 08:46; Stop 02/25/17 at 09:15; Status DC Azithromycin 500 mg/Sodium Chloride 250 ml @ 250 mls/hr ONCE STAT IV ; Start 02/25/17 at 08:46; Stop 02/25/17 at 09:45; Status DC Sodium Chloride 1,000 ml @ 1,000 mls/hr Q1H ONCE IV Last administered on 09:57; Start 02/25/17 at 08:46; Stop 02/25/17 at 09:45; Status DC Sodium Chloride 1,000 ml @ 1,000 mls/hr Q1H ONCE IV Last administered on 09:57; Start 02/25/17 at 08:46; Stop 02/25/17 at 09:45; Status DC Sodium Chloride 400 ml @ 1,000 mls/hr Q24M ONCE IV Last administered on 09:58; Start 02/25/17 at 08:46; Stop 02/25/17 at 09:09; Status DC Fentanyl Citrate (fentaNYL DRIP) 250 ml @ 0 mls/hr TITRATE IV Last administered on 02/25/17 10:01; Start 02/25/17 at 09:00; Stop 02/25/17 at 10:31 ; Status DC Midazolam HCl 2.5 mg 2.5 mg ONCE ONCE IV ; Start 02/25/17 at 09:00; Stop at 09:01; Status DC Midazolam HCl (Versed Inj) 100 ml @ 0 mls/hr TITRATE IV Last administered on 02:02; Start 02/25/17 at 09:00 Midazolam HCl 2.5 mg 2.5 mg ONCE ONCE IV PUSH Last administered on 02/25/17 12:02; Start 02/25/17 at 09:00; Stop 02/25/17 at 09:01; Status DC Midazolam HCl 100 ml @ As Directed STK-MED ONCE .ROUTE ; Start 02/25/17 at 08: 54; Stop 02/25/17 at 08:55; Status DC Fentanyl Citrate 250 ml @ As Directed STK-MED ONCE .ROUTE ; Start 02/25/17 at 09:07; Stop 02/25/17 at 09:08; Status DC Sodium Chloride (NS 250 ml Inj) 250 ml @ 15 mls/hr ONCE ONCE IV ; Start at 09:30; Stop 02/26/17 at 02:09; Status DC Diphenhydramine HCl (Benadryl Inj) 25 mg UNSCH X1 PRN IV ITCHING; Start at 09:30; Stop 02/28/17 at 09:29 Acetaminophen 650 mg 650 mg UNSCH X1 PRN PO FEVER; Start 02/25/17 at 09:30; Stop 02/28/17 at 09:29 Sodium Chloride (NS 1000 ml Inj) 1,000 ml @ 150 mls/hr Q6H40M IV ; Start at 11:00; Stop 02/25/17 at 11:18; Status DC Sodium Chloride (NS Flush) 2 ml UNSCH PRN IV FLUSH FLUSH AFTER USING IV ACCESS ; Start 02/25/17 at 10:30 Sodium Chloride (NS Flush) 2 ml BID IV FLUSH ; Start 02/25/17 at 21:00 Acetaminophen (Tylenol) 650 mg Q6H PRN PO PAIN 1-10 AND/OR FEVER >101F; Start 02/25/17 at 10:30 Fentanyl Citrate (fentaNYL INJ) 50 mcg Q1H PRN IV SEE LABEL COMMENTS; Start at 10:30 Albuterol/ Ipratropium (Duoneb Neb) 1 ampule Q6HR NEB NEB Last administered on 02/26/17 08:56; Start 02/25/17 at 16:00 Albuterol Sulfate (Albuterol Neb) 2.5 mg Q4HR NEB PRN INH SHORTNESS OF BREATH; Start 02/25/17 at 10:30; Stop 02/26/17 at 06:44; Status DC Chlorhexidine Gluconate (Peridex 0.12% Liq) 15 ml BID@08,20 MT Last administered on 02/26/17 08:00; Start 02/25/17 at 20:00 Pantoprazole Sodium (Protonix Inj) 40 mg DAILY IV ; Start 02/26/17 at 09:00; Stop 02/26/17 at 09:00; Status DC Miscellaneous Information 1 [id number] Last administered on 02/25/17 14:04; Start 02/25/17 at 10:30 Chlorhexidine Gluconate (Chlorhexidine 2% Cloth) 3 pack Taper DAILY@04 TOP Last administered on 02/26/17 04:00; Start 02/26/17 at 04:00; Stop 02/22/18 at 03:59 Chlorhexidine Gluconate 3 pack 3 pack UNSCH PRN TOP HYGIENIC CARE; Start at 10:30 Propofol 100 ml @ 0 mls/hr TITRATE IV ; Start 02/25/17 at 10:30; Stop 02/25/17 at 11:01; Status DC Fentanyl Citrate 250 ml @ 0 mls/hr TITRATE IV ; Start 02/25/17 at 10:30 Piperacillin Sod/ Tazobactam Sod 50 ml @ 100 mls/hr Q8H IV Last administered on 02/26/17 05:11; Start 02/25/17 at 12:00; Stop 02/26/17 at 07:59; Status DC Vancomycin HCl 1000 mg/Sodium Chloride 250 ml @ 250 mls/hr ONCE ONCE IV ; Start 02/25/17 at 10:30; Stop 02/25/17 at 11:29; Status DC Sodium Chloride 1,000 ml @ 999 mls/hr BOLUS ONCE IV Last administered on 02/25 11:30; Start 02/25/17 at 10:30; Stop 02/25/17 at 11:30; Status DC Sodium Chloride (NS 1000 ml Inj) 1,000 ml @ 999 mls/hr BOLUS ONCE IV Last administered on 02/25/17 11:30; Start 02/25/17 at 10:30; Stop 02/25/17 at 11:30 ; Status DC Insulin Aspart 1 1 Q4H SQ Last administered on 02/26/17 07:00; Start 02/25/17 at 11:00 Sodium Chloride 1,000 ml @ 999 mls/hr BOLUS ONCE IV Last administered on 02/25 13:24; Start 02/25/17 at 10:45; Stop 02/25/17 at 11:45; Status DC Norepinephrine Bitartrate (Levophed-Dextrose Drip) 250 ml @ 0 mls/hr TITRATE IV Last administered on 02/25/17 11:03; Start 02/25/17 at 11:00; Stop 02/25/17 at 15:27; Status DC Terbutaline Sulfate (Brethine Inj) 1 mg UNSCH PRN SQ For Extravasation; Start 02/25/17 at 11:00; Stop 02/26/17 at 06:44; Status DC Norepinephrine Bitartrate 4 mg 4 mg STK-MED ONCE .ROUTE ; Start 02/25/17 at 10: 54; Stop 02/25/17 at 10:55; Status DC Pantoprazole Sodium 80 mg/ Sodium Chloride 35 ml @ 420 mls/hr ONCE ONCE IV Last administered on 02/25/17 16:09; Start 02/25/17 at 12:00; Stop 02/25/17 at 12:04; Status DC Pantoprazole Sodium 80 mg/ Sodium Chloride 100 ml @ 10 mls/hr Q10H IV Last administered on 02/26/17 09:09; Start 02/25/17 at 12:00 Sodium Bicarbonate/ Sodium Chloride (Sodium Bicarbonate 8.4% Inj/1/2 NS 1000 ml Inj) 1,075 ml @ 150 mls/hr Q7H10M IV Last administered on 02/25/17 16:09; Start 02/25/17 at 13:00; Stop 02/25/17 at 16:33; Status DC Sodium Bicarbonate 100 meq 100 meq ONCE ONCE IV PUSH Last administered on 02/25 12:00; Start 02/25/17 at 12:00; Stop 02/25/17 at 12:01; Status DC Azithromycin/ Sodium Chloride (Zithromax Inj/ NS 250 ml Inj) 250 ml @ 250 mls/ hr Q24H IV Last administered on 02/25/17 13:22; Start 02/25/17 at 13:00 Sodium Bicarbonate (Sodium Bicarbonate 8.4% Inj) 100 meq STK-MED ONCE .ROUTE Last administered on 02/25/17 11:30; Start 02/25/17 at 11:23; Stop 02/25/17 at 11:24; Status DC Rocuronium [place] 50 mg 50 mg BOLUS ONCE IV Last administered on 02/25/17 13 :23; Start 02/25/17 at 14:00; Stop 02/25/17 at 14:01; Status DC Sodium Chloride 500 ml @ 30 mls/hr CONTINUOUS IV Last administered on 05:24; Start 02/25/17 at 13:15 Phenylephrine HCl/ Sodium Chloride (Neosynephrine Inj/NS 500 ml Inj) 500 ml @ 0 mls/hr TITRATE IV Last administered on 02/26/17 10:30; Start 02/25/17 at 14:00 Terbutaline Sulfate (Brethine Inj) 1 mg UNSCH PRN SQ For Extravasation; Start 02/25/17 at 13:15 Sodium Bicarbonate 100 meq 100 meq ONCE ONCE IV PUSH Last administered on 02/25 13:22; Start 02/25/17 at 13:15; Stop 02/25/17 at 13:16; Status DC Sodium Chloride 240 meq/Syringe / Bag 60 ml @ 120 mls/hr ONCE ONCE IV Last administered on 02/25/17 13:57; Start 02/25/17 at 13:30; Stop 02/25/17 at 13:59 ; Status DC Norepinephrine Bitartrate/Sodium Chloride (Levophed Inj/NS 250 ml Inj) 250 ml @ 0 mls/hr TITRATE IV Last administered on 02/26/17 10:29; Start 02/25/17 at 15: 27 Heparin Sodium (Porcine) 76353 units 10,000 units STK-MED ONCE .ROUTE ; Start at 16:50; Stop 02/25/17 at 16:51; Status DC Sodium Chloride (NS 1000 ml Inj) 1,000 ml @ 0 mls/hr UNSCH PRN OTHER SEE LABEL COMMENTS; Start 02/25/17 at 17:15 Heparin Sodium (Porcine) (Heparin Inj) 8,000 units WITH DIALYSIS PRN IV WITH DIALYSIS; Start 02/25/17 at 18:00 Potassium Chloride Add _2_ mEq/Liter ... WITH DIALYSIS PRN .XX SEE LABEL COMMENTS; Start 02/25/17 at 18:00 Sodium Chloride (1/2 NS 1000 ml Inj) 1,000 ml @ 0 mls/hr Q0M PRN IV PREDILUTIONAL SOLN CRRT; Start 02/25/17 at 18:00 Sodium Bicarbonate 50 meq 50 meq UNSCH PRN .XX SEE LABEL COMMENTS Last administered on 02/26/17 10:30; Start 02/25/17 at 18:00 Dobutamine HCl/ Sodium Chloride (Dobutrex Inj/NS 250 ml Inj) 250 ml @ 12 mls/ hr [id number] IV Last administered on 02/26/17 08:41; Start 02/26/17 at 01:00 Phenylephrine HCl (Neosynephrine Inj) 40 mg STK-MED ONCE .ROUTE Last administered on 02/26/17 06:18; Start 02/26/17 at 06:18; Stop 02/26/17 at 06:19 ; Status DC Albuterol Sulfate 2.5 mg 2.5 mg Q2HR NEB PRN INH SHORTNESS OF BREATH; Start at 08:00 Calcium Gluconate 1 gm/Sodium Chloride 110 ml @ 110 mls/hr ONCE ONCE IV Last administered on 02/26/17 07:53; Start 02/26/17 at 07:00; Stop 02/26/17 at 07:59 ; Status DC Levetriacetam 500 mg/Sodium Chloride 105 ml @ 420 mls/hr Q12HR IV Last administered on 02/26/17 08:14; Start 02/26/17 at 09:00; Stop 03/05/17 at 08:59 Piperacillin Sod/ Tazobactam Sod (Zosyn 2.25 Gm Premix) 50 ml @ 100 mls/hr Q8H IV ; Start 02/26/17 at 12:00 Artificial Tears (Tears Naturale Opth Soln) 1 drop Q8HR EACH EYE ; Start at 14:00 Medical Decision Making MDM Remarks Last Impressions Head CT 02/25/17 0846 Signed Impressions: Service Date/Time: Saturday, February 25, 2017 09:29 - CONCLUSION: Left frontal subdural hematoma with mild midline shift. Atrophy. Mark Mendoza MD Chest X-Ray 02/25/17 0846 Signed Impressions: Service Date/Time: Saturday, February 25, 2017 08:56 - CONCLUSION: Endotracheal tube as above. Mark Mendoza MD Chest CT 02/25/17 0000 Signed Impressions: Service Date/Time: Saturday, February 25, 2017 11:44 - CONCLUSION: Dense bibasilar lung consolidation. Scattered patchy airspace disease. Radiopaque material within the right lung base characteristic of possible aspiration . Endotracheal and nasogastric tubes are in good position. Derick Preciado MD Plan Plan Remarks (1) Acute subdural hematoma Diagnosis: Principal (2) Acute encephalopathy Diagnosis: Principal (3) Acute hypoxemic respiratory failure Diagnosis: Principal (4) Septic shock Diagnosis: Principal (5) Bilateral pneumonia Diagnosis: Principal (6) Severe sepsis Diagnosis: Principal (7) Lactic acidosis Diagnosis: Principal (8) Thrombocytopenia Diagnosis: Principal (9) Elevated troponin Diagnosis: Principal (10) Anemia Diagnosis: Principal (11) Acute renal failure Diagnosis: Principal (12) Myelodysplasia (myelodysplastic syndrome) Diagnosis: Secondary (13) Shock Diagnosis: Principal (14) UGIB (upper gastrointestinal bleed) Diagnosis: Principal (15) Hyperlipidemia Diagnosis: Secondary (16) Type 2 diabetes mellitus Diagnosis: Secondary (17) Hypertension Diagnosis: Secondary Attending Statement Status post Placement of ICP monitor is indicated as recommended by the [place] [employer] neurological [employer]. Not medically stable for a follow up CT. A follow-up CT will be obtained in 24 hours if his overall condition improves. Respiratory. Worsening pulmonary condition. Continue Full mechanical ventilation in assist control mode of mechanical ventilation, pulmonary toilette , nasotracheal suction, and breathing treatments with nebulizers. Thrombocytopenia: Transfuse platelets. Consult hematology troponin level increase due to POSSIBLE ACS. Defer to iron pellet tester Has developed GI bleeding. 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 NPO Renal. I'm continues dialysis. Monitor closely urine output, BUN and creatinine Endocrine. Continue to Monitor serial Acu checks and SSI for tight control ID monitor for signs of infection Protonix for stress ulcer prophylaxis Gonzalo hose and SCD's for DVT prophylaxis His condition is critical with multisystem failure Burak Sanders MD Feb 26, 2017 11:51
--- NOTE | 2017-02-26 11:53 | RADRPT ---
EXAM DATE/TIME: 02/26/2017 09:54 [facility] COMPARISON: No previous studies available for comparison. INDICATIONS : Enlarged liver, Increased BUN/Creatinine. MEDICAL HISTORY : Hypercholesterolemia. Hypertension. Acute myelogenous (Leukemia). Dyspnea. Hematemesis. Hematuria. Diabetes. SURGICAL HISTORY : Lasik surgery. TURP. Blood transfusions. Chemotherapy. ENCOUNTER: Subsequent ACUITY: 1 day PAIN SCORE: Nonresponsive. LOCATION: Abdomen. MEASUREMENTS: LIVER: 19.9 cm length COMMON DUCT: 4 mm RIGHT KIDNEY: 102 x 5.3 x 5.4 cm LEFT KIDNEY: 10.5 x 5.8 x 6.2 cm SPLEEN: 15.1 cm length AORTA: 2.8cm maximal FINDINGS: The liver is fatty without focal lesions or technique. The spleen is enlarged measuring 15.1 cm in si ze without focal lesions for technique.The gallbladder demonstrates no definite stones, gallbladder w all thickening, or pericholecystic fluid. The visualized pancreas appears grossly intact for techniq ue. The IVC, aorta are unremarkable. No definite solid renal mass or hydeonephrosis is seen. The ki dneys demonstrate slight increased in echogenicity may be due to chronic medical renal disease. There is a trace of pleural effusion on the right side. There is slight fluid within the peritoneal cavity particularly the Montalvo's pouch. The gallbladder demonstrates multiple stones with slight gallblad edmundo wall thickening, and slight pericholecystic fluid. CONCLUSION: 1. Cholelithiasis and cholecystitis may be present. 2. The liver is slightly echogenic which maybe due to fatty infiltration and or hepatocellular dysfun ction. 3. Slight splenomegaly and slight ascites. Robbie Hong MD on February 26, 2017 at 11:42 Board Certified Radiologist. This report was verified electronically.
[2017-02-26] MEDS ORDERED: PIPERACIL-TAZO 2.25 GM PREMIX 50 ML IV SCH (12:00)
[2017-02-26 12:05] LABS: HEMATOCRIT 23.8 % (39.0-51.0); MEAN CELL VOLUME 88.3 FL (80.0-100.0); MEAN CORPUSCULAR HEMOGLOBIN 30.3 PG (27.0-34.0); MEAN CORPUSCULAR HGB CONC 34.3 % (32.0-36.0); PLATELET COUNT 33 TH/MM3 (150-450); RED CELL DISTRIBUTION WIDTH 15.9 % (11.6-17.2); WHITE BLOOD COUNT 44.1 TH/MM3 (4.0-11.0)
[2017-02-26 12:12] LABS: HEMO FLAGS AUTO DIFF
--- NOTE | 2017-02-26 12:14 | PD.ONC.PN ---
Subjective Subjective Remarks Tmax 99.7 overnight. patient remains on multiple pressors. s/p FFP, pRBC and platelet transfusions. Remains intubated, sedated. Per nursing staff, is considering withdrawing care. Objective Data Date Time Temp Pulse Resp B/P Pulse Ox O2 Delivery O2 Flow Rate FiO2 02/26/17 08:45 100 100 02/26/17 08:00 100 02/26/17 08:00 97.8 121 20 108/58 100 Automatic Cuff 02/26/17 08:00 121 02/26/17 04:25 96 100 02/26/17 04:00 100 02/26/17 04:00 99.7 117 20 98 112/64 02/26/17 00:15 99 100 02/26/17 00:00 100 02/26/17 00:00 98.1 117 20 98 81/59 02/25/17 23:00 116 02/25/17 21:10 89 100 02/25/17 20:00 100 02/25/17 20:00 99.1 112 26 90 92/57 02/25/17 19:00 91 Mechanical Ventilator 100 02/25/17 16:00 100.2 119 22 106/60 91 105/54 02/25/17 16:00 100 02/25/17 15:00 123 02/25/17 14:10 99 100 02/25/17 12:50 93 100 Result Diagram: 02/25/17 1615 02/26/17 0420 Laboratory Results Laboratory Tests Test 02/25/17 02/25/17 02/25/17 02/25/17 12:53 12:55 14:04 14:20 Blood Gas Puncture Site ART LINE ART LINE Blood Gas Patient Temperature 98.6 98.6 Blood Gas HCO3 17 mmol/L 19 mmol/L Blood Gas Base Excess -9.7 mmol/L -6.7 mmol/L Blood Gas Oxygen Saturation 88 % 93 % Arterial Blood pH 7.18 7.24 Arterial Blood Partial 48 mmHg 48 mmHg Pressure CO2 Arterial Blood Partial 71 mmHg 86 mmHg Pressure O2 Arterial Blood Oxygen Content 9.2 Vol % 10.5 Vol % Arterial Blood 1.3 % 1.2 % Carboxyhemoglobin Arterial Blood Methemoglobin 1.4 % 1.3 % Blood Gas Hemoglobin 7.4 G/DL 7.9 G/DL Oxygen Delivery Device VENTILATOR VENTILATOR Blood Gas Ventilator Setting 600/18/PEEP8 600/20/PEEP8 Blood Gas Inspired Oxygen 100 % 100 % Lactic Acid Level 3.5 mmol/L Sodium Level 144 MEQ/L Potassium Level 4.6 MEQ/L Chloride Level 109 MEQ/L Carbon Dioxide Level 22.7 MEQ/L Anion Gap 12 MEQ/L Blood Urea Nitrogen 62 MG/DL Creatinine 4.05 MG/DL Estimat Glomerular Filtration 14 ML/MIN Rate Random Glucose 307 MG/DL Serum Osmolality 334 MOSM/KG Calcium Level 6.9 MG/DL Protein Corrected Calcium 7.9 MG/DL Total Bilirubin 1.8 MG/DL Aspartate Amino Transf 104 U/L (AST/SGOT) Alanine Aminotransferase 84 U/L (ALT/SGPT) Alkaline Phosphatase 55 U/L Total Protein 5.2 GM/DL Albumin 2.6 GM/DL Test 02/25/17 02/25/17 02/25/17 02/25/17 14:35 16:02 16:15 18:48 Urine Random Creatinine LESS THAN 5.0 MG/DL Urine Random Sodium 148 MEQ/L Urine Microalbumin/Creatinine 28201 MG/G CRE Ratio Blood Gas Puncture Site ART LINE ART LINE Blood Gas Patient Temperature 98.6 98.6 Blood Gas HCO3 17 mmol/L 18 mmol/L Blood Gas Base Excess -9.5 mmol/L -7.5 mmol/L Blood Gas Oxygen Saturation 86 % 82 % Arterial Blood pH 7.19 7.25 Arterial Blood Partial 47 mmHg 43 mmHg Pressure CO2 Arterial Blood Partial 64 mmHg 52 mmHg Pressure O2 Arterial Blood Oxygen Content 10.1 Vol % 11.0 Vol % Arterial Blood 1.4 % 1.7 % Carboxyhemoglobin Arterial Blood Methemoglobin 1.5 % 1.4 % Blood Gas Hemoglobin 8.3 G/DL 9.5 G/DL Oxygen Delivery Device VENTILATOR VENTILATOR Blood Gas Ventilator Setting 600/22/PEEP8 600/26/PEEP8 Blood Gas Inspired Oxygen 100 % 100 % White Blood Count 50.8 TH/MM3 Red Blood Count 2.75 MIL/MM3 Hemoglobin 8.3 GM/DL Hematocrit 24.8 % Mean Corpuscular Volume 90.4 FL Mean Corpuscular Hemoglobin 30.3 PG Mean Corpuscular Hemoglobin 33.5 % Concent Red Cell Distribution Width 15.4 % Platelet Count 63 TH/MM3 Mean Platelet Volume 8.6 FL Neutrophils (%) (Auto) 81.4 % Lymphocytes (%) (Auto) 0.9 % Monocytes (%) (Auto) 17.4 % Eosinophils (%) (Auto) 0.1 % Basophils (%) (Auto) 0.2 % Neutrophils # (Auto) 41.4 TH/MM3 Lymphocytes # (Auto) 0.5 TH/MM3 Monocytes # (Auto) 8.8 TH/MM3 Eosinophils # (Auto) 0.0 TH/MM3 Basophils # (Auto) 0.1 TH/MM3 CBC Comment AUTO DIFF Differential Total Cells 100 Counted Neutrophils % (Manual) 23 % Band Neutrophils % 51 % Lymphocytes % 3 % Monocytes % 10 % Neutrophils # (Manual) 44.2 TH/MM3 Metamyelocytes 9 % Myelocytes 3 % Promyelocytes 1 % Differential Comment FINAL DIFF MANUAL Platelet Estimate LOW Platelet Morphology Comment NORMAL Lactic Acid Level 6.0 mmol/L Magnesium Level 1.7 MG/DL Troponin I 4.42 NG/ML Test 02/25/17 02/25/17 02/25/17 02/26/17 20:15 21:42 23:50 01:50 Serum Osmolality 323 MOSM/KG 321 MOSM/KG Blood Gas Puncture Site ART LINE Blood Gas Patient Temperature 98.6 Blood Gas HCO3 22 mmol/L Blood Gas Base Excess -3.3 mmol/L Blood Gas Oxygen Saturation 83 % Arterial Blood pH 7.29 Arterial Blood Partial 48 mmHg Pressure CO2 Arterial Blood Partial 53 mmHg Pressure O2 Arterial Blood Oxygen Content 11.4 Vol % Arterial Blood 1.5 % Carboxyhemoglobin Arterial Blood Methemoglobin 1.3 % Blood Gas Hemoglobin 9.8 G/DL Oxygen Delivery Device VENTILATOR Blood Gas Ventilator Setting PRVC20/600/0.65/+10 Blood Gas Inspired Oxygen 100 % Blood Bank Comment Sodium Level 145 MEQ/L Test 02/26/17 02/26/17 02/26/17 02/26/17 04:20 07:45 08:30 09:18 Sodium Level 146 MEQ/L Potassium Level 4.3 MEQ/L Chloride Level 108 MEQ/L Carbon Dioxide Level 25.0 MEQ/L Anion Gap 13 MEQ/L Blood Urea Nitrogen 63 MG/DL Creatinine 4.00 MG/DL Estimat Glomerular Filtration 15 ML/MIN Rate Random Glucose 173 MG/DL Serum Osmolality 322 MOSM/KG Calcium Level 6.6 MG/DL Protein Corrected Calcium 7.6 MG/DL Phosphorus Level 5.0 MG/DL Magnesium Level 1.5 MG/DL Total Bilirubin 3.0 MG/DL Aspartate Amino Transf 319 U/L (AST/SGOT) Alanine Aminotransferase 215 U/L (ALT/SGPT) Alkaline Phosphatase 50 U/L Total Creatine Kinase 189 U/L Total Protein 5.1 GM/DL Albumin 2.4 GM/DL Prothrombin Time 16.3 SEC Prothromb Time International 1.5 RATIO Ratio Activated Partial 31.0 SEC Thromboplast Time Fibrinogen 275 mg/dL Lactic Acid Level 3.6 mmol/L Blood Gas Puncture Site ART LINE Blood Gas Patient Temperature 100 Blood Gas HCO3 23 mmol/L Blood Gas Base Excess -2.4 mmol/L Blood Gas Oxygen Saturation 96 % Arterial Blood pH 7.33 Arterial Blood Partial 44 mmHg Pressure CO2 Arterial Blood Partial 115 mmHg Pressure O2 Arterial Blood Oxygen Content 14.3 Vol % Arterial Blood 1.1 % Carboxyhemoglobin Arterial Blood Methemoglobin 1.1 % Blood Gas Hemoglobin 10.5 G/DL Oxygen Delivery Device VENTILATOR Blood Gas Ventilator Setting [facility]/ Blood Bank Comment Culture Results Microbiology Date/Time Procedure Status Source Growth 02/25/17 09:10 Aerobic Blood Culture - Preliminary Resulted Blood Peripheral Gram Positive Cocci 02/25/17 09:10 Anaerobic Blood Culture - Preliminary Resulted Gram Positive Cocci 02/25/17 09:10 Aerobic Blood Culture Worksheet Blood Peripheral Pending 02/25/17 09:10 Anaerobic Blood Culture Worksheet Blood Peripheral Pending 02/25/17 09:10 Urine Culture Received Urine Catheterized Urine Pending 02/25/17 14:35 Gram Stain - Final Resulted Sputum Endotracheal 02/25/17 14:35 Sputum Culture Resulted Sputum Endotracheal Pending 02/26/17 09:21 Influenza Types A,B Antigen (SCARLET) - Final Complete Nasal Aspirate NEGATIVE FOR FLU A AND B ANTIGEN.... Administered Medications Medications (Trade) Dose Ordered Sig/Bigg Route PRN Reason Start Time Stop Time Status Last Admin Dose Admin Midazolam HCl (Versed Inj) 100 ml @ 0 mls/hr TITRATE IV 02/25/17 09:00 02/26/17 02:02 Chlorhexidine Gluconate (Peridex 0.12% Liq) 15 ml BID@08,20 MT 02/25/17 20:00 02/26/17 08:00 Miscellaneous Information 1 [id number] XX 02/25/17 10:30 02/25/17 14:04 Chlorhexidine Gluconate (Chlorhexidine 2% Cloth) 3 pack Taper DAILY@04 TOP 02/26/17 04:00 02/22/18 03:59 02/26/17 04:00 Insulin Aspart 1 1 Q4H SQ 02/25/17 11:00 02/26/17 11:57 Pantoprazole Sodium 80 mg/ Sodium Chloride 100 ml @ 10 mls/hr Q10H IV 02/25/17 12:00 02/26/17 11:49 Azithromycin 500 mg/Sodium Chloride 250 ml @ 250 mls/hr Q24H IV 02/25/17 13:00 02/25/17 13:22 Sodium Chloride 500 ml @ 30 mls/hr CONTINUOUS IV 02/25/17 13:15 02/26/17 05:24 Phenylephrine HCl 40 mg/Sodium Chloride 500 ml @ 0 mls/hr TITRATE IV 02/25/17 14:00 02/26/17 10:30 Norepinephrine Bitartrate/Sodium Chloride (Levophed Inj/NS 250 ml Inj) 250 ml @ 0 mls/hr TITRATE IV 02/25/17 15:27 02/26/17 11:50 Sodium Bicarbonate 50 meq 50 meq UNSCH PRN .XX SEE LABEL COMMENTS 02/25/17 18:00 02/26/17 10:30 Dobutamine HCl 250 mg/Sodium Chloride 250 ml @ 12 mls/hr [id number] IV 02/26/17 01:00 02/26/17 08:41 Levetriacetam/ Sodium Chloride (Keppra Inj/NS Inj) 105 ml @ 420 mls/hr Q12HR IV 02/26/17 09:00 03/05/17 08:59 02/26/17 08:14 Objective Remarks GENERAL: Elderly male, intubated, sedated, receiving CVVH SKIN: Warm and dry. left IJ and left SC lines in place, no oozing HEAD: Normocephalic. EYES: No injection or drainage. NECK: Supple, trachea midline. CARDIOVASCULAR: +S1/S2, tachy RESPIRATORY: anterior tang with occasional rhonchi GASTROINTESTINAL: Abdomen mildly distended. EXTREMITIES: No cyanosis. bilateral lower extremities with SCD's in place. MUSCULOSKELETAL: Adequate muscle tone. NEUROLOGICAL: intubated, sedated Assessment/Plan Problem List: (1) Myelodysplasia (myelodysplastic syndrome) Status: Acute Plan: + low grade MDS, without any excess blasts. +refractory anemia requiring frequent blood transfusions. --has not required platelet transfusions in the past. --was on Revlimid outpatient --keep hemoglobin greater than 8. (2) Acute subdural hematoma Status: Acute Plan: --CT brain showed a subdural hematoma along the left frontal convexity with a thickness of 9 mm. + mild [id number] shift of 2.6 mm's. --neurosurgery following --no surgery planned --keep platelets >70K --If he needs to undergo surgery we will have to transfuse bring his platelet count above 90,000. He will need platelet transfusions intraoperatively and postoperatively. (3) Severe sepsis Status: Acute Plan: --on antibiotics and multiple pressors (4) Acute renal failure Status: Acute (5) Acute encephalopathy Status: Acute (6) Acute hypoxemic respiratory failure Status: Acute Assessment 76y/o male with a history of MDS / MPN overlap syndrome who presents with a fall and was found to have subdural bleed. MDS / MPN overlap syndrome Thrombocytopenia. Anemia History of chronic hematuria BPH. Plan 1. monitor CBC 2. give 1 unit of platelets. agree with FFP ordered by court transcriber 3. monitor clinical status Attending Statement The exam, history, and the medical decision-making described in the above note were completed with the assistance of the mid-level provider. I reviewed and agree with the findings presented. I attest that I had a [id number] encounter with the patient on the same day, and personally performed and documented my assessment and findings in the medical record. Will transfuse to keep platelets > 70. give additional 2 units Check daily coags and Fibrinogen. FFP as needed Keep Hb > 8 d/w rn Problem Qualifiers (1) Acute renal failure: Qualified Code: N17.9 - Acute renal failure, unspecified acute renal failure type Raquel Garg Feb 26, 2017 12:14 Samir Louis MD Feb 26, 2017 23:56
--- NOTE | 2017-02-26 12:43 | HHI.NPPN ---
Objective Data Data 02/25/17 02/26/17 19:00 07:00 Intake Total 2285 ml 4670 ml Output Total 80 ml 0 ml Balance 2205 ml 4670 ml Intake Oral 0 ml 0 ml IV Total 2385 ml Packed Cells 1250 ml 1250 ml FFP 206 ml 206 ml Platelets 829 ml 829 ml Output Urine Total 30 ml 0 ml Gastric Drainage Total 50 ml 0 ml # Bowel Movements 0 0 Vital Signs Date Time Temp Pulse Resp B/P Pulse Ox O2 Delivery O2 Flow Rate FiO2 02/26/17 08:45 100 100 02/26/17 08:00 100 02/26/17 08:00 97.8 121 20 108/58 100 Automatic Cuff 02/26/17 08:00 121 02/26/17 04:25 96 100 02/26/17 04:00 100 02/26/17 04:00 99.7 117 20 98 112/64 02/26/17 00:15 99 100 02/26/17 00:00 100 02/26/17 00:00 98.1 117 20 98 81/59 02/25/17 23:00 116 02/25/17 21:10 89 100 02/25/17 20:00 100 02/25/17 20:00 99.1 112 26 90 92/57 02/25/17 19:00 91 Mechanical Ventilator 100 02/25/17 16:00 100.2 119 22 106/60 91 105/54 02/25/17 16:00 100 02/25/17 15:00 123 02/25/17 14:10 99 100 02/25/17 12:50 93 100 -: 02/26/17 1144 02/26/17 1144 Microbiology 02/25/17 Gram Stain - Final, Resulted 02/25/17 Sputum Culture, Resulted Pending 02/26/17 Influenza Types A,B Antigen (SCARLET) - Final, Complete NEGATIVE FOR FLU A AND B ANTIGEN.... 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 (3) Acute subdural hematoma Plan: s/p fall, neurosurgery following ICP monitor in place; (4) Septic shock Plan: lactic acid elevated, he is febrile with leukocytosis given vancomycin, on Zithromax and Zosyn UTI: E coli CXR: bibasilar infiltrates ID monitored by critical care (5) Myelodysplasia (myelodysplastic syndrome) Plan: severe, hematology/oncology following anemia: 2 units PRBC ordered, transfuse as needed *goal Hb > 8 thrombocytopenia: 3 units irradiated platelets ordered 2 units FFP *Goal platelets > 70K, although he usually runs 50-60K (6) UGIB (upper gastrointestinal bleed) Plan: GI has been following (7) Type 2 diabetes mellitus Plan: hold Metformin, give insulin as ordered monitor glucose (8) Elevated troponin Plan: cardiology has evaluated. recommend 2D echo, otherwise felt elevated troponin is due to renal insufficiency medical management Problem Qualifiers (1) Acute renal failure: Qualified Code: N17.9 - Acute renal failure, unspecified acute renal failure type (2) Type 2 diabetes mellitus: Miguel Mcclain MD Feb 26, 2017 12:43
[2017-02-26 12:54] LABS: BANDS 47 % (0-6); METAMYELOCYTES 5 % (0-1); MYELOCYTES 3 % (0-0); PLATELET ESTIMATE SMEAR LOW (NORMAL); PLATELET MORPHOLOGY NORMAL (NORMAL); POLYS (SEG NEUTROPHILS) 29 % (16-70); SCAN/DIFF FINAL DIFF MANUAL; WBC DIFF SAMPLE 100
--- NOTE | 2017-02-26 13:07 | MB ---
cc: NIKOLAS WORTHINGTON MD,MORRO Varghese MD DATE OF CONSULTATION: 02/26/[address] Jaquez. REASON FOR CONSULTATION Severe sepsis/pneumonia, patient with multiorgan system failure. MDS. Assistance with antibiotic management. HISTORY OF PRESENT ILLNESS This is a 76-year-old white male who presented to the emergency department yesterday with altered mental status. The patient reportedly fell striking the left aspect of his head. He sustained a subdural hematoma with mild midline shift. The patient is currently intubated and on the ventilator. He was hypoxic and was intubated. He underwent placement of an intracranial pressure monitor. He is currently intubated and on the ventilator. Information is obtained from the medical record. In the emergency department the patient had a temperature of 102.2 degrees, heart rate 141. His white blood cell count was elevated at 26.1 and platelet count was 28,000 and creatinine was 4.31. Urinalysis was grossly abnormal. Urine culture was taken. Blood cultures were taken prior to antibiotics and all four bottles have gram-positive cocci. The patient has received one dose of vancomycin. He is currently on CVVH and has almost zero urine output. He is currently on Levophed, Cristiano-Synephrine and dobutamine. The current blood pressure is 125/64. He is on the ventilator on 100% FIO2. His white blood cell count today is 50.8 and the platelet count is 63,000. Chest x-ray on admission showed diffuse bilateral basilar alveolar opacities, and subsequent x-ray showed dense bibasilar lung consolidation and scattered patchy airspace disease. A 2D echocardiogram showed ejection fraction in the range of 55-60%. The aortic valve showed mild leaflet sclerosis. PAST MEDICAL HISTORY 1. Myelodysplastic syndrome. 2. Anemia. 3. Hypertension. 4. Type 2 diabetes mellitus. 5. Thrombocytopenia. 6. Iron overload. 7. TURP. ALLERGIES NO KNOWN DRUG ALLERGIES. MEDICATIONS 1. Piperacillin/tazobactam. 2. Levetiracetam. 3. Dobutamine. 4. Levophed. 5. Cristiano-Synephrine. 6. Azithromycin. 7. Pantoprazole. SOCIAL HISTORY Unable to obtain. FAMILY HISTORY Unable to obtain. PHYSICAL EXAMINATION GENERAL: This is a well-developed male who is sedated and on the ventilator. He is unresponsive. VITAL SIGNS: Temperature 99.7, BP 125/64, respirations per ventilator. The patient on 100% FIO2. Heart rate 107. HEAD, EYES, EARS, NOSE AND THROAT: Unable to fully assess. There is an ICP monitor exiting the vertex of the head at the frontal aspect on the right. The pupils are pinpoint. No conjunctival erythema. No icterus. Oropharynx - dry oral mucosa. Dried crust of blood at the upper palate. Dentition appears fair. No visible dental erosions. NECK: No adenopathy or swelling. LUNGS: Coarse rhonchi bilateral. HEART: Irregular rate and rhythm with a slight systolic murmur heard at the left sternal border. ABDOMEN: Bowel sounds diminished, soft, no tenderness appreciated. RECTAL: Not performed. EXTREMITIES: One punctate purpuric lesion approximately 1 mm at the dorsal aspect of the wrist at the base of the index finger on the right side. No clubbing, no cyanosis or edema. The distal extremities have no embolic phenomena. Pulses 2+ and symmetrical. SKIN: No rash. NEUROLOGIC: Unable to assess. PSYCHIATRIC: Unable to assess. LABORATORY DATA WBC 50.8, platelet count 63,000, hemoglobin 8.3, 51% bands, 23% neutrophils, 3% lymphocytes. Creatinine 4.0, BUN 63, estimated GFR 15, AST 319, ALT 215, lactic acid 3.6, sodium 146. IMPRESSION 1. Septic shock. 2. Bacteremia due to gram-positive bacteria. 3. UTI. 4. Aspiration pneumonia. 5. Acute renal failure. 6. Acute respiratory failure. 7. Subdural hematoma. The source of sepsis likely is the urine versus pulmonary although he likely aspirated after admission or during the course of falling. Probably UTI is the more likely source. RECOMMENDATIONS 1. Obtain vancomycin level to determine on additional vancomycin dosing, and continue to dose vancomycin for coverage of the gram-positive bacteria in the blood. 2. Monitor gram-positive cocci identity and sensitivity. 3. Continue piperacillin/tazobactam for pulmonary coverage. 4. Continue azithromycin. 5. Monitor urine culture. 6. Monitor sputum culture. 7. Monitor white blood cell count. 8. Monitor clinical status. Thank you for this consultation. The patient's progress will be monitored and further recommendations will be given on followup if necessary. Nikolas Worthington MD FD/BJF /11:21 AM /12:14 PM
[2017-02-26] MEDS: AZITHROMYCIN INJ 500 MG in SODIUM CHLOR 0.9% 250 ML INJ 250 ML IV SCH (13:46)
[2017-02-26] MEDS ORDERED: ARTIFICIAL TEARS OPTH SOLN 15 ML BTL EACH EYE SCH (14:00)
[2017-02-26] MEDS ORDERED: VASOPRESSIN INJ 40 UNITS in DEXTROSE 5% IN WATER 100ML INJ 98 ML IV SCH ×2 (14:02)
[2017-02-26] MEDS ORDERED: SODIUM CHLOR 0.9% 250 ML INJ 250 ML IV ONE (14:45)
--- NOTE | 2017-02-26 15:22 | EKG ---
Date Performed: 02/25/2017 Time Performed: 08:46:40 PTAGE: 76 years EKG: SINUS TACHYCARDIA WITH OCCASIONAL SUPRAVENTRICULAR PREMATURE COMPLEXES BORDERLINE LEFT AXIS DEVIATION NONSPECIFIC T-WAVE ABNORMALITY ABNORMAL RHYTHM ECG PREVIOUS TRACING 06/23/2016 11.29.20 Compared to previous tracing, heart rate is faster, other oquendo no significant change. DOCTOR: Dileep Simons Interpretating Date/Time 02/26/2017 15:21:44
[2017-02-26] MEDS ORDERED: NOREPINEPHRINE 16 MG/D5W 250 ML IV SCH ×2 (15:45)
--- NOTE | 2017-02-26 15:46 | HHI.GIFU ---
Subjective Remarks Patient remains unstable, on many pressors, there is plans by family to withdraw life support. Continues to have blood from OG-tube. He is receiving continuous dialysis Objective Vitals I&O Vital Signs Date Time Temp Pulse Resp B/P Pulse Ox O2 Delivery O2 Flow Rate FiO2 02/26/17 12:00 123 02/26/17 12:00 98.6 123 20 100/52 82 02/26/17 08:45 100 100 02/26/17 08:00 100 02/26/17 08:00 97.8 121 20 108/58 100 Automatic Cuff 02/26/17 08:00 121 02/26/17 04:25 96 100 02/26/17 04:00 100 02/26/17 04:00 99.7 117 20 98 112/64 02/26/17 00:15 99 100 02/26/17 00:00 100 02/26/17 00:00 98.1 117 20 98 81/59 02/25/17 23:00 116 02/25/17 21:10 89 100 02/25/17 20:00 100 02/25/17 20:00 99.1 112 26 90 92/57 02/25/17 19:00 91 Mechanical Ventilator 100 02/25/17 16:00 100.2 119 22 106/60 91 105/54 02/25/17 16:00 100 I/O 02/25/17 02/25/17 02/25/17 02/26/17 02/26/17 02/26/17 07:00 15:00 23:00 07:00 15:00 23:00 Intake Total 2285 ml 4670 ml 3529 ml Output Total 80 ml 0 ml 0 ml Balance 2205 ml 4670 ml 3529 ml Intake Oral 0 ml 0 ml IV Total 2385 ml 2818 ml Packed Cells 1250 ml 1250 ml FFP 206 ml 206 ml 711 ml Platelets 829 ml 829 ml Output Urine Total 30 ml 0 ml 0 ml Gastric Drainage Total 50 ml 0 ml 0 ml # Bowel Movements 0 0 0 Laboratory Laboratory Tests Test 02/25/17 02/25/17 02/25/17 02/25/17 16:02 16:15 18:48 20:15 Blood Gas Puncture Site ART LINE ART LINE Blood Gas Patient Temperature 98.6 98.6 Blood Gas HCO3 17 18 Blood Gas Base Excess -9.5 -7.5 Blood Gas Oxygen Saturation 86 82 Arterial Blood pH 7.19 7.25 Arterial Blood Partial 47 43 Pressure CO2 Arterial Blood Partial 64 52 Pressure O2 Arterial Blood Oxygen Content 10.1 11.0 Arterial Blood 1.4 1.7 Carboxyhemoglobin Arterial Blood Methemoglobin 1.5 1.4 Blood Gas Hemoglobin 8.3 9.5 Oxygen Delivery Device VENTILATOR VENTILATOR Blood Gas Ventilator Setting 600/22/PEEP8 600/26/PEEP8 Blood Gas Inspired Oxygen 100 100 White Blood Count 50.8 Red Blood Count 2.75 Hemoglobin 8.3 Hematocrit 24.8 Mean Corpuscular Volume 90.4 Mean Corpuscular Hemoglobin 30.3 Mean Corpuscular Hemoglobin 33.5 Concent Red Cell Distribution Width 15.4 Platelet Count 63 Mean Platelet Volume 8.6 Neutrophils (%) (Auto) 81.4 Lymphocytes (%) (Auto) 0.9 Monocytes (%) (Auto) 17.4 Eosinophils (%) (Auto) 0.1 Basophils (%) (Auto) 0.2 Neutrophils # (Auto) 41.4 Lymphocytes # (Auto) 0.5 Monocytes # (Auto) 8.8 Eosinophils # (Auto) 0.0 Basophils # (Auto) 0.1 CBC Comment AUTO DIFF Differential Total Cells 100 Counted Neutrophils % (Manual) 23 Band Neutrophils % 51 Lymphocytes % 3 Monocytes % 10 Neutrophils # (Manual) 44.2 Metamyelocytes 9 Myelocytes 3 Promyelocytes 1 Differential Comment FINAL DIFF MANUAL Platelet Estimate LOW Platelet Morphology Comment NORMAL Lactic Acid Level 6.0 Magnesium Level 1.7 Troponin I 4.42 Serum Osmolality 323 Test 02/25/17 02/25/17 02/26/17 02/26/17 21:42 23:50 01:50 04:20 Blood Gas Puncture Site ART LINE Blood Gas Patient Temperature 98.6 Blood Gas HCO3 22 Blood Gas Base Excess -3.3 Blood Gas Oxygen Saturation 83 Arterial Blood pH 7.29 Arterial Blood Partial 48 Pressure CO2 Arterial Blood Partial 53 Pressure O2 Arterial Blood Oxygen Content 11.4 Arterial Blood 1.5 Carboxyhemoglobin Arterial Blood Methemoglobin 1.3 Blood Gas Hemoglobin 9.8 Oxygen Delivery Device VENTILATOR Blood Gas Ventilator Setting PRVC20/600/0.65/+10 Blood Gas Inspired Oxygen 100 Blood Bank Comment Sodium Level 145 146 Serum Osmolality 321 322 Potassium Level 4.3 Chloride Level 108 Carbon Dioxide Level 25.0 Anion Gap 13 Blood Urea Nitrogen 63 Creatinine 4.00 Estimat Glomerular Filtration 15 Rate Random Glucose 173 Calcium Level 6.6 Protein Corrected Calcium 7.6 Phosphorus Level 5.0 Magnesium Level 1.5 Total Bilirubin 3.0 Aspartate Amino Transf 319 (AST/SGOT) Alanine Aminotransferase 215 (ALT/SGPT) Alkaline Phosphatase 50 Total Creatine Kinase 189 Total Protein 5.1 Albumin 2.4 Test 02/26/17 02/26/17 02/26/17 02/26/17 07:45 08:30 09:18 11:44 Prothrombin Time 16.3 Prothromb Time International 1.5 Ratio Activated Partial 31.0 Thromboplast Time Fibrinogen 275 Lactic Acid Level 3.6 3.4 Blood Gas Puncture Site ART LINE Blood Gas Patient Temperature 100 Blood Gas HCO3 23 Blood Gas Base Excess -2.4 Blood Gas Oxygen Saturation 96 Arterial Blood pH 7.33 Arterial Blood Partial 44 Pressure CO2 Arterial Blood Partial 115 Pressure O2 Arterial Blood Oxygen Content 14.3 Arterial Blood 1.1 Carboxyhemoglobin Arterial Blood Methemoglobin 1.1 Blood Gas Hemoglobin 10.5 Oxygen Delivery Device VENTILATOR Blood Gas Ventilator Setting [facility]/ Blood Bank Comment White Blood Count 44.1 Red Blood Count 2.70 Hemoglobin 8.2 Hematocrit 23.8 Mean Corpuscular Volume 88.3 Mean Corpuscular Hemoglobin 30.3 Mean Corpuscular Hemoglobin 34.3 Concent Red Cell Distribution Width 15.9 Platelet Count 33 Mean Platelet Volume 9.3 Neutrophils (%) (Auto) Lymphocytes (%) (Auto) Monocytes (%) (Auto) Eosinophils (%) (Auto) Basophils (%) (Auto) Neutrophils # (Auto) Lymphocytes # (Auto) Monocytes # (Auto) Eosinophils # (Auto) Basophils # (Auto) CBC Comment AUTO DIFF Differential Total Cells 100 Counted Neutrophils % (Manual) 29 Band Neutrophils % 47 Lymphocytes % 3 Monocytes % 13 Neutrophils # (Manual) 37.0 Metamyelocytes 5 Myelocytes 3 Differential Comment FINAL DIFF MANUAL Platelet Estimate LOW Platelet Morphology Comment NORMAL Sodium Level 147 Serum Osmolality 328 Random Vancomycin Level LESS THAN 0.8 Test 02/26/17 14:53 Blood Bank Comment Date/Time Procedure Status Source Growth 02/26/17 09:21 Influenza Types A,B Antigen (SCARLET) - Final Complete Nasal Aspirate NEGATIVE FOR FLU A AND B ANTIGEN.... 02/25/17 14:35 Gram Stain - Final Resulted Sputum Endotracheal 02/25/17 14:35 Sputum Culture - Preliminary Resulted Sputum Endotracheal HEAVY GROWTH NORMAL RESPIRATORY CAILIN... 02/25/17 09:10 Urine Culture - Preliminary Resulted Urine Catheterized Urine Staphylococcus Aureus 02/25/17 09:10 Aerobic Blood Culture - Preliminary Resulted Blood Peripheral Staphylococcus Aureus 02/25/17 09:10 Anaerobic Blood Culture - Preliminary Resulted Gram Positive Cocci 02/25/17 09:10 Aerobic Blood Culture Worksheet Blood Peripheral Pending 02/25/17 09:10 Anaerobic Blood Culture Worksheet Blood Peripheral Pending Physical Exam HEENT: normocephalic; Hematoma with superficial abrasion and ecchymosis over the left frontal temporal area. CHEST: Vented OETT CARDIAC: Tachycardiac ABDOMEN: Soft, nondistended, nontender; no hepatosplenomegaly; bowel sounds are hypoactive, OG in place with blood out put EXTREMITIES: No clubbing, cyanosis, or edema. 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 Currently patient is intubated, sedated on a vent, OG tube with bloody out put I don't have hh today, low plt 5 units of blood and 3 units of platelets ordered and one unit of FFP, on pressers, not stable for EGD - Acute subdural hematoma- Status post placement of a right soledad hole/ICP monitor by Dr. Sanders - Acute encephalopathy - Bilateral Pneumonia - Severe sepsis - ARF - Anemia - Thrombocytopenia of 33 today , receiving plt, 3 units ordered - Myelodysplasia requiring weekly blood transfusion and followed by Dr. Louis - Respiratory failure intubated per [facility] Plan - NPO - OGT to LIWS - Poor prognosis, there's plans by family to withdraw support, - Cont. to monitor hh - Transfuse as needed - Correct plt count - H&H - PPI - Supportive care - EGD once medically stable, will follow clinical course and pending family decision - Patient seen and examined by Dr. Thomas and myself and this note is written on his behalf. Chery Ruiz [facility] Feb 26, 2017 15:46
[2017-02-26] MEDS ORDERED: DEXTROSE IV SCH ×2 (16:00)
[2017-02-26] MEDS ORDERED: PHENYLEPHRINE HCL 160 MG/D5W 484 ML ADMIX IV SCH ×2 (16:00)
[2017-02-26] MEDS ORDERED: DOBUTAMINE IV SCH ×2 (16:00)
[2017-02-26] MEDS ORDERED: EPINEPHrine (1:1000) INJ 2 MG in SODIUM CHLOR 0.9% 250 ML INJ 250 ML IV SCH (16:15)
[2017-02-26] MEDS ORDERED: NOREPINEPHRINE INJ 16 MG in SODIUM CHLOR 0.9% 250 ML INJ 234 ML IV SCH (16:17)
[2017-02-26] MEDS ORDERED: DOBUTamine INJ 1,000 MG in SODIUM CHLOR 0.9% 250 ML INJ 170 ML IV SCH (16:20)
[2017-02-26] MEDS ORDERED: PHENYLEPHRINE INJ 160 MG in SODIUM CHLORID 0.9% 500 ML INJ 484 ML IV SCH (16:24)
[2017-02-26 19:06] LABS: HEMATOCRIT 23.7 % (39.0-51.0); MEAN CORPUSCULAR HEMOGLOBIN 30.6 PG (27.0-34.0); MEAN CORPUSCULAR HGB CONC 34.7 % (32.0-36.0); PLATELET COUNT 44 TH/MM3 (150-450); RED BLOOD COUNT 2.69 MIL/MM3 (4.50-5.90); RED CELL DISTRIBUTION WIDTH 16.2 % (11.6-17.2)
[2017-02-26 19:07] LABS: REVIEW FLAG FINAL
[2017-02-26] MEDS ORDERED: HYDROmorphone HCL PF 2 MG/ML VIAL IV ONE ×2 (19:15→19:30)
[2017-02-26] MEDS ORDERED: HYOSCYAMINE 0.125 MG TAB PO/SL ONE (19:15)
[2017-02-26] MEDS ORDERED: LORazepam 2 MG/ML VIAL IV ONE ×2 (19:15→19:30)
[2017-02-26] MEDS ORDERED: HYDROmorphone HCL PF 2 MG/ML VIAL IV PRN ×2 (19:45)
[2017-02-26] MEDS ORDERED: LORazepam 2 MG/ML VIAL IV PRN ×2 (19:45)
[2017-02-26] MEDS ORDERED: LORazepam 2 MG/ML VIAL IVS PRN (19:45)
[2017-02-26] MEDS ORDERED: ACETAMINOPHEN 650 MG SUPP RECTAL PRN (19:45)
[2017-02-26] MEDS ORDERED: FUROSEMIDE 20 MG/2 ML VIAL IV PRN (19:45)
[2017-02-26] MEDS ORDERED: BISACODYL 10 MG SUPP RECTAL PRN (19:45)
[2017-02-26] MEDS ORDERED: LORazepam 2 MG/ML VIAL IV SCH (20:00)
[2017-02-26] MEDS ORDERED: HYDROmorphone HCL PF 2 MG/ML VIAL IV SCH (20:00)
--- NOTE | 2017-02-28 16:37 | HHI.DS ---
Summary Note Admission Date Feb 25, 2017 at 10:30 Admitting Diagnosis Diagnosis at Time of : (1) Acute subdural hematoma ICD Code: I62.01 Diagnosis: Principal (2) Acute encephalopathy ICD Code: G93.40 Diagnosis: Principal (3) Acute hypoxemic respiratory failure ICD Code: J96.01 Diagnosis: Principal (4) Septic shock ICD Code: A41.9 Diagnosis: Principal (5) Bilateral pneumonia ICD Code: J18.9 Diagnosis: Principal (6) Severe sepsis ICD Code: A41.9 Diagnosis: Principal (7) Lactic acidosis ICD Code: E87.2 Diagnosis: Principal (8) Thrombocytopenia ICD Code: D69.6 Diagnosis: Principal (9) Elevated troponin ICD Code: R74.8 Diagnosis: Principal (10) Anemia ICD Code: D64.9 Diagnosis: Principal (11) Acute renal failure ICD Code: N17.9 Diagnosis: Principal (12) Myelodysplasia (myelodysplastic syndrome) ICD Code: D46.9 Diagnosis: Secondary (13) Shock ICD Code: R57.9 Diagnosis: Principal (14) UGIB (upper gastrointestinal bleed) ICD Code: K92.2 Diagnosis: Principal (15) Hyperlipidemia ICD Code: E78.5 Diagnosis: Secondary (16) Type 2 diabetes mellitus ICD Code: E11.9 Diagnosis: Secondary (17) Hypertension ICD Code: I10 Diagnosis: Secondary Procedures Soledad hole ICP Monitor - Marilyn CRRT Brief History The patient is a 76-year-old male with history of Myelodysplastic syndrome, type 2 DM, hypertension who presented to the emergency department via EMS for altered mental status. He had a fall yesterday, striking the left aspect of his head, was seen by his primary physician yesterday. Decreasing mental status throughout the night, and EMS was called today am. EMS found patient hypoxic when they arrived, O2 saturation on room air of 72%. In the ER was disoriented and appears confused. He was tachycardic with a heart rate in the 120s and respiratory rate in the 40s. His initial O2 saturation in ER was 52%, with nonrebreather came up to 90s. Rapid sequence intubation performed by Dr. De La Rosa as patient remained hypoxic, confused. After Blood culture was drawn patient was given cefepime and Zithromax. Pertinent labs Na 130, potassium 5.0, BUN/creat 64/4.3, glucose 328, hemoglobin 6.8, and platelet count of 28,000. NG tube placed with coffee ground emesis. A Stat CT the brain reveals a left subdural hemorrhage 9 mm with mild [id number] shift of 2.6 mm. The patient's platelets were low at 28, I have ordered 3 U irradiated platelets and 2U PRBC, 1U FFP. N/S Dr. Sanders was consulted, as well as oncology , GI and nephrology. Patient had a fever of 102.2 and CXR showed bilateral basilar infiltrates. His WBC count was 26,000 (has MDS)and fever of 102.2 I evaluated patient in ED. intubated sedated with Versed, remains unresponsive. Patient became hypotensive despite NS bolus. I placed a left subclavian central line and ordered additional 2L NS bolus and 2U PRBC. Levophed started to keep MAP>70. family is not at bedside but prognosis is guarded. Patient is admitted to [facility] with shock (multifactorial, predominantly septic) and acute L SDH with encephalopathy and resp failure CBC/BMP: 02/26/17 1835 02/26/17 1835 Significant Findings Laboratory Tests Test 02/25/17 02/25/17 02/25/17 02/26/17 18:48 20:15 21:42 01:50 Blood Gas HCO3 18 mmol/L (22-26) Blood Gas Base Excess -7.5 mmol/L -3.3 mmol/L (-2-2) (-2-2) Blood Gas Oxygen Saturation 82 % (90-100) 83 % (90-100) Arterial Blood pH 7.25 7.29 (7.380-7.420) (7.380-7.420) Arterial Blood Partial 43 mmHg (38-42) 48 mmHg (38-42) Pressure CO2 Arterial Blood Partial 52 mmHg 53 mmHg Pressure O2 (61-120) (61-120) Arterial Blood Oxygen Content 11.0 Vol % 11.4 Vol % (12.0-20.0) (12.0-20.0) Blood Gas Hemoglobin 9.5 G/DL 9.8 G/DL (12.0-16.0) (12.0-16.0) Serum Osmolality 323 MOSM/KG 321 MOSM/KG (275-295) (275-295) Test 02/26/17 02/26/17 02/26/1717 04:20 07:45 08:30 11:44 Sodium Level 146 MEQ/L 147 MEQ/L (136-145) (136-145) Chloride Level 108 MEQ/L (98-107) Blood Urea Nitrogen 63 MG/DL (7-18) Creatinine 4.00 MG/DL (0.60-1.30) Estimat Glomerular Filtration 15 ML/MIN (>89) Rate Random Glucose 173 MG/DL (74-106) Serum Osmolality 322 MOSM/KG 328 MOSM/KG (275-295) (275-295) Calcium Level 6.6 MG/DL (8.5-10.1) Protein Corrected Calcium 7.6 MG/DL (8.5-10.1) Phosphorus Level 5.0 MG/DL (2.5-4.9) Total Bilirubin 3.0 MG/DL (0.2-1.0) Aspartate Amino Transf 319 U/L (15-37) (AST/SGOT) Alanine Aminotransferase 215 U/L (12-78) (ALT/SGPT) Total Protein 5.1 GM/DL (6.4-8.2) Albumin 2.4 GM/DL (3.4-5.0) Prothrombin Time 16.3 SEC (9.8-11.6) Activated Partial 31.0 SEC Thromboplast Time (24.3-30.1) Lactic Acid Level 3.6 mmol/L 3.4 mmol/L (0.4-2.0) (0.4-2.0) Blood Gas Base Excess -2.4 mmol/L (-2-2) Arterial Blood pH 7.33 (7.380-7.420) Arterial Blood Partial 44 mmHg (38-42) Pressure CO2 Blood Gas Hemoglobin 10.5 G/DL (12.0-16.0) White Blood Count 44.1 TH/MM3 (4.0-11.0) Red Blood Count 2.70 MIL/MM3 (4.50-5.90) Hemoglobin 8.2 GM/DL (13.0-17.0) Hematocrit 23.8 % (39.0-51.0) Platelet Count 33 TH/MM3 (150-450) Band Neutrophils % 47 % (0-6) Lymphocytes % 3 % (9-44) Monocytes % 13 % (0-8) Neutrophils # (Manual) 37.0 TH/MM3 (1.8-7.7) Metamyelocytes 5 % (0-1) Myelocytes 3 % (0-0) Platelet Estimate LOW (NORMAL) Test 02/26/17 18:35 White Blood Count 38.0 TH/MM3 (4.0-11.0) Red Blood Count 2.69 MIL/MM3 (4.50-5.90) Hemoglobin 8.2 GM/DL (13.0-17.0) Hematocrit 23.7 % (39.0-51.0) Platelet Count 44 TH/MM3 (150-450) Sodium Level 147 MEQ/L (136-145) Serum Osmolality 322 MOSM/KG (275-295) Lactic Acid Level 4.3 mmol/L (0.4-2.0) Imaging Last Impressions Head CT 02/25/17 0846 Signed Impressions: Service Date/Time: Saturday, February 25, 2017 09:29 - CONCLUSION: Left frontal subdural hematoma with mild midline shift. Atrophy. Mark Mendoza MD Chest X-Ray 02/25/17 0846 Signed Impressions: Service Date/Time: Saturday, February 25, 2017 08:56 - CONCLUSION: Endotracheal tube as above. Mark Mendoza MD Chest CT 02/25/17 0000 Signed Impressions: Service Date/Time: Saturday, February 25, 2017 11:44 - CONCLUSION: Dense bibasilar lung consolidation. Scattered patchy airspace disease. Radiopaque material within the right lung base characteristic of possible aspiration . Endotracheal and nasogastric tubes are in good position. Derick Preciado MD Hospital Course NEURO/PSYCH : Acute left frontal subdural hemorrhage Acute encephalopathy Patient is currently in Versed 2.5 mg an hour/fentanyl drip at 200 's an hour for sedation/analgesia while intubated Goal of RASS of -3 to -4 No sedation vacation until okay with neurosurgery CT head 02/25 revealed acute left frontal subdural hematoma/9 mm with a left-to- right shift to 2.[address] this a.m. pending -Altered mentation secondary to acute left subdural hemorrhage and metabolic encephalopathy from sepsis -Neurosurgery Dr. Sanders consulted. Status post placement of a right soledad hole/ICP monitor by Dr. Sanders -3 units of platelets being transfused to keep platelet count above 60,000-70k -Correct hyponatremia, target sodium 145-150. avoid hypoxia hypercarbia -Target CPP 65-70 after ICP monitor placement with vasopressors. -3% Saline at 30 ml per hour Every 6 hours sodium/serum osm Keppra 500 twice a day 7 days seizure prophylaxis RESP: Acute hypoxemic respiratory failure Bilateral community-acquired pneumonia PRVC 20/600/11/23/ Ventilator bundle Duo nebs every 6 hours and albuterol nebs for breakthrough every 2 hours when necessary -CT chest 02/25 dense bibasilar consolidation -Nebs every 6 hours and when necessary -Follow-up a.m. chest x-ray/ABG CV: Shock multifactorial. (Predominantly septic and hypovolemic/hemorrhagic) Elevated troponin Lactic acidosis Dyslipidemia History of hypertension -2d echo revealed EF 55-60%. No regional wall motion abnormality. Trace TR/MR. Seen by Dr. Pang/cardiology. No plans for further cardiac evaluation at this time. Cardiac index 2.6. SVV 23 -Levophed currently at 24 g per minute and Cristiano-Synephrine at 65 g a minute to keep map above 65 Added Dobutrex overnight at 6 mics grams per kilogram per minute - follow-up VBG this a.m. -Trend lactic acid last one 6.5 documented Holding pravastatin 20 mg daily/home medication light of elevated transaminases Holding benazepril 5 mg by mouth daily 6 for hypertension/home medication light of hypotension/acute kidney injury GI: Upper GI bleed Transaminitis - likely secondary to shock -IV Protonix 80 mg 1 given yesterday and 8 mg per hour -GI consult/Dr. Thomas - endoscopy when clinically stable -Keep nothing by mouth, correct coagulopathy - Serial hemoglobins -Check CPK/hepatitis panel and liver ultrasound. Recheck hepatic profile in a.m. : BPH/history of TURP Holding Proscar 5 mill grams daily/trazodone 10 mg by mouth daily light of hypotension/acute kidney injury Maintain Schafer for accurate I's and O's in a critically ill patient RENAL: Acute on CKD CRRT currently on standby due to clotting of mechanism -Nephrology consulted/Dr. Patel - currently on renal replacement -Follow-up on BMP/magnesium phosphorus in a.m. Check renal ultrasound today/urologic lites and eosinophils ID: Septic shock Bilateral basilar pneumonia -IV vancomycin x1 yesterday 1 g. Placed on Zosyn CRRT dosage 3.375 every 8 ( 2.25 every 6 equivalent) and azithromycin day #2 Pertinent cultures 02/25 - urine - pending 02/25 - sputum - pending 02/25 - blood cultures 2 - pending Infectious disease consult in light of complicated history for antibiotic recommendations. HEME: Macrocytic Anemia Thrombocytopenia History of MDS/MPN Leukocytosis -Transfuse blood products to keep hemoglobin more than 8, platelet, than 60,000 , INR less than 1.3 -Patient has received 3 pack units of irradiated platelets, 2 units of PRBC, and 3 unit of FFP -Hematology oncology Dr. Louis consulted. Appreciate recommendations ENDO: Type 2 diabetes -Electrolyte replacement as needed, sliding scale insulin. Low regimen every 4 hours. 7 units sliding scale past 24 hours Holding metformin 1000 mg twice a day in light of acute kidney injury FEN Hypernatremia On 3% saline at 30 cc an hour. Serial sodiums every 6 hours goal 145-150 Replace electrolytes as clinically indicated Holding home medications biotin/B12 and D. Resume if clinically indicated MSK: Range of motion for now PROPH: -Bilateral lower extremity SCDs. Pharmacological prophylaxis is with GI bleed/ subdural hematoma. Protonix infusion at 8 mg an hour for GI prophylaxis LINES: -Left subclavian central line placed 02/25/17. Right radial Arterial line 02/25 Left IJ hemodialysis catheter 02/[address] chest port in place Critical Care: The total critical care time was 55 minutes. Time to perform other separately billable procedures was not included in the critical care time. Discussed with . Current condition and care discussed at length. discussion with her family wish withdrawal care. Articles B and C and been signed by myself and Dr. Sanders.. See ventilator withdrawal protocol orders. Landen Jaquez MD Feb 28, 2017 16:37
== END 2017-02-26 21:16 | disposition expired | DRG 853 ==
LOC: NEPE 08:29 → NEDA 10:30 → N03B 12:13
PROVIDERS: ADMIT Internal Medicine; ATTEND Internal Medicine
PROC: 00H032Z Insertion of Monitoring Device into Brain, Percutaneous Approach (ICD-10-PCS; principal; 2017-02-25)
PROC: 4A103BD Monitoring of Intracranial Pressure, Percutaneous Approach (ICD-10-PCS; 2017-02-25)
PROC: 0BH17EZ Insertion of Endotracheal Airway into Trachea, Via Natural or Artificial Opening (ICD-10-PCS; 2017-02-25)
PROC: 5A1945Z Respiratory Ventilation, 24-96 Consecutive Hours (ICD-10-PCS; 2017-02-25)
PROC: 02HV33Z Insertion of Infusion Device into Superior Vena Cava, Percutaneous Approach (ICD-10-PCS; 2017-02-25)
PROC: 05HN33Z Insertion of Infusion Device into Left Internal Jugular Vein, Percutaneous Approach (ICD-10-PCS; 2017-02-25)
PROC: 5A1D00Z (ICD-10-PCS; 2017-02-25)
PROC: 30233K1 Transfusion of Nonautologous Frozen Plasma into Peripheral Vein, Percutaneous Approach (ICD-10-PCS; 2017-02-25)
PROC: 30233N1 Transfusion of Nonautologous Red Blood Cells into Peripheral Vein, Percutaneous Approach (ICD-10-PCS; 2017-02-25)
PROC: 30233R1 Transfusion of Nonautologous Platelets into Peripheral Vein, Percutaneous Approach (ICD-10-PCS; 2017-02-25)
DX: A41.89 Other specified sepsis (principal); J96.01 Acute respiratory failure with hypoxia; N17.0 Acute kidney failure with tubular necrosis; R65.21 Severe sepsis with septic shock; J69.0 Pneumonitis due to inhalation of food and vomit; R57.8 Other shock; G93.41 Metabolic encephalopathy; J18.9 Pneumonia, unspecified organism; E87.0 Hyperosmolality and hypernatremia; S06.5X0A Traumatic subdural hemorrhage without loss of consciousness, initial encounter; K92.2 Gastrointestinal hemorrhage, unspecified; N39.0 Urinary tract infection, site not specified; E87.2 Acidosis; E87.1 Hypo-osmolality and hyponatremia; D68.9 Coagulation defect, unspecified; D69.6 Thrombocytopenia, unspecified; N18.3 Chronic kidney disease, stage 3 (moderate); E11.22 Type 2 diabetes mellitus with diabetic chronic kidney disease; D46.9 Myelodysplastic syndrome, unspecified; I12.9 Hypertensive chronic kidney disease with stage 1 through stage 4 chronic kidney disease, or unspecified chronic kidney disease; E78.5 Hyperlipidemia, unspecified; E86.0 Dehydration; N40.0 Benign prostatic hyperplasia without lower urinary tract symptoms; D53.9 Nutritional anemia, unspecified; E83.111 Hemochromatosis due to repeated red blood cell transfusions; W19.XXXA Unspecified fall, initial encounter
CPT/HCPCS: 31500; 36430; 36556; 36600; 36620; 51702; 61210; 70450; 71010; 71250; 76700; 76937; 80053; 80202; 81001; 82043; 82140; 82435; 82550; 82552; 82565; 82570; 82805; 82947; 82948; 83605; 83690; 83735; 83930; 84100; 84132; 84295; 84300; 84484; 84520; 85007; 85027; 85384; 85610; 85730; 86403; 86850; 86900; 86901; 86920; 86927; 86945; 86965; 87040; 87070; 87086; 87147; 87186; 87205; 87641; 87804; 93005; 93306; 94002; 94003; 94640; 94664; 94770; 96365; 96375; 99214; C9113; G0463; J0171; J0456; J0610; J0895; J1170; J1250; J1626; J1642; J1644; J1815; J1953; J2060; J2250; J2370; J2543; J3010; J7030; J7040; J7050; P9017; P9031; P9037; P9040